=== PATIENT | female | born 1950 | race Caucasian/White ===

== ENCOUNTER 2016-11-06 09:33 | Inpatient (IN) | payer MEDICARE, BC ==
[2016-11-06] MEDS ORDERED: Ciprofloxacin 400MG IVPREMIX(* 400 MG/200 ML BAG IVPB ONE (10:09)
[2016-11-06] MEDS ORDERED: Acetaminophen TAB* 325 MG PO ONE (10:09)
[2016-11-06] MEDS ORDERED: metroNIDAZOLE IV 500 MG/100ML* 500 MG/100 ML BAG IVPB ONE (10:09)
[2016-11-06] MEDS ORDERED: Albuterol/Ipratropium NEB.SOL* Albuterol 2.5 MG/Ipratropium 0.5 MG 3 ML INH PRN (10:09)
[2016-11-06] MEDS: NS 0.9% 1000 ML*IV.FLUID IV ONE ×2 (10:25→15:58)
[2016-11-06 10:48] LABS: Hematocrit 27 % (35-47); Mean Corpuscular HGB Conc 33 g/dl (31-36); Mean Corpuscular Hemoglobin 29 pg (27-31); Mean Corpuscular Volume 87 fL (80-97); Mean Platelet Volume 8 um3 (7.4-10.4); Red Blood Count 3.08 10^6/ul (4.0-5.4); Red Cell Distribution Width 14 % (10.5-15); White Blood Count 12.4 10^3/ul (3.5-10.8)
--- NOTE | 2016-11-06 10:59 | RAD ---
HISTORY: Fever, shortness of breath, pneumonia COMPARISONS: May 27, 2016 VIEWS: 2: Frontal and lateral views of the chest. FINDINGS: CARDIOMEDIASTINAL SILHOUETTE: The cardiomediastinal silhouette is normal. AYAKA: The ayaka are normal. PLEURA: The costophrenic angles are sharp. No pleural abnormalities are noted. LUNG PARENCHYMA: The lungs are clear. ABDOMEN: The upper abdomen is clear. There is no subphrenic gas. BONES AND SOFT TISSUES: No bone or soft tissue abnormalities are noted. OTHER: None. IMPRESSION: NO ACTIVE CARDIOPULMONARY DISEASE.
[2016-11-06 11:00] LABS: ALT 17 U/L (7-52); AST 18 U/L (13-39); Albumin 1.5 g/dL (3.2-5.2); Alkaline Phosphatase 29 U/L (34-104); Blood Urea Nitrogen 13 mg/dL (6-24); C Reactive Protein 44.62 mg/L (< 5.00); Chloride 123 mmol/L (101-111); EGFR African American 458.5 (>60); EGFR Non-African American 356.5 (>60); Globulin 1.5 g/dL (2-4); Glucose 60 mg/dL (70-100)
[2016-11-06] MEDS ORDERED: Vancomycin(*) 1,000 MG VIAL IVPB SCH (11:00)
[2016-11-06] MEDS ORDERED: Vancomycin 1500 MG IV - x ONCE IVPB ONE ×2 (11:00)
[2016-11-06 11:07] LABS: Add Diff/Slide Review? Slide Review Added; Comments Flag Yes
[2016-11-06] MEDS ORDERED: Dextrose 50% Syringe 50 ML* 25 GM/50 ML SYRINGE IV PUSH ONE (11:14)
--- NOTE | 2016-11-06 11:20 | RAD ---
HISTORY: Slurred speech, bleed, fever COMPARISONS: None TECHNIQUE: Multiple contiguous axial CT scans were obtained of the head without intravenous contrast. FINDINGS: HEMORRHAGE/INFARCT: There is no hemorrhage or acute infarct. MASSES/SHIFT: There is no mass or shift. EXTRA-AXIAL SPACES: There are no extra-axial fluid collections. SULCI AND VENTRICLES: The sulci and ventricles are normal in size and position for the patient's stated age. CEREBRUM: There is hypoattenuation of the periventricular and subcortical white matter. BRAINSTEM: There are no focal parenchymal abnormalities. CEREBELLUM: There are no focal parenchymal abnormalities. VESSELS: The vessels are grossly normal. PARANASAL SINUSES: The paranasal sinuses are clear. ORBITS: The orbits are unremarkable. BONES AND SOFT TISSUE: No bone or soft tissue abnormalities are noted. OTHER: None IMPRESSION: NO ACUTE INTRACRANIAL PATHOLOGY. CHRONIC SMALL VESSEL ISCHEMIC CHANGES.
[2016-11-06 11:50] LABS: CO2 Carbon Dioxide 12 mmol/L (22-32); Calcium < 4.0 mg/dL (8.6-10.3); Potassium 1.7 mmol/L (3.5-5.0)
[2016-11-06 11:52] LABS: Urine Bacteria 1+ (Absent); Urine Bilirubin Negative (Negative); Urine Glucose Negative (Negative); Urine Nitrite Negative (Negative)
[2016-11-06 11:56] LABS: Anion Gap 5 mmol/L (2-11); Sodium 140 mmol/L (133-145)
[2016-11-06 12:20] LABS: Erythrocyte Sed Rate 10 mm/Hr (0-40)
[2016-11-06] MEDS ORDERED: KCL 20 MEQ/100 ML IVPREMIX* 20 MEQ/100 ML BAG IV ONE (12:40)
[2016-11-06] MEDS ORDERED: Calcium CHLORIDE 10% SYRINGE* 1 GM/10 ML IV ONE (12:44)
[2016-11-06] MEDS ORDERED: Iohexol 300* (CONTRAST) 10 ML SDV IV ONE (13:13)
--- NOTE | 2016-11-06 14:41 | RAD ---
CLINICAL HISTORY: Abdominal pain, fever, abscess, ulcerative colitis COMPARISON: November 05, 2015 TECHNIQUE: Multiple contiguous axial CT scans were obtained of the abdomen and pelvis after the administration of intravenous contrast. Coronal and sagittal multiplanar reformations are submitted for review. Oral contrast was administered. Delayed images were obtained through the abdomen and pelvis. FINDINGS: LUNG BASES: The lung bases are clear. LIVER: There has been interval development of multiple heterogeneously enhancing low-attenuation lesions of the liver throughout both lobes, measuring up to 3.8 cm in size. BILE DUCTS: There is no intrahepatic or extrahepatic biliary dilatation. GALLBLADDER: The gallbladder is not visualized. Surgical clips are noted in the gallbladder fossa. PANCREAS: The pancreas is normal, without mass or ductal dilatation. SPLEEN: Normal in size and appearance. UPPER GI TRACT: Evaluation of the gastrointestinal tract is limited by incomplete gastric distention. The upper GI tract is unremarkable. SMALL BOWEL AND MESENTERY: The small bowel is normal in contour, course, and caliber. There is no obstruction or dilatation. COLON: There is mucosal thickening of the rectum. The sigmoid colon is relatively featureless. There is diverticulosis of the descending colon at the descending sigmoid junction ADRENALS: Normal bilaterally. KIDNEYS: The kidneys are normal in shape, size, contour, and axis. There is no hydronephrosis or nephrolithiasis. BLADDER: The bladder is smooth in contour. PELVIC ORGANS: The uterus and adnexa are grossly normal for technique. AORTA: The aorta is normal. IVC: Unremarkable LYMPH NODES: There is no lymphadenopathy by size criteria. ABDOMINAL WALL: There is no evidence for abdominal wall hernia. BONES AND SOFT TISSUES: There are mild diffuse degenerative changes. OTHER: None IMPRESSION: 1. THERE HAS BEEN INTERVAL DEVELOPMENT OF HETEROGENEOUSLY ENHANCING LOW-ATTENUATION LESIONS OF THE LIVER. DIFFERENTIAL DOES INCLUDE METASTATIC DISEASE, THOUGH GIVEN THE HISTORY OF FEVER, HEPATIC ABSCESSES ARE ALSO WITHIN THE DIFFERENTIAL. 2. THERE IS MUCOSAL THICKENING OF THE RECTUM WITH RELATIVELY FEATURELESS MUCOSA OF THE SIGMOID COLON. THIS LIKELY REFLECTS THE HISTORY OF INFLAMMATORY BOWEL DISEASE. 3. DIVERTICULOSIS. PRELIMINARY FINDINGS WERE DISCUSSED WITH DR. DANG IN THE EMERGENCY DEPARTMENT AT APPROXIMATELY 2:37 PM ON NOVEMBER 06, 2016.
[2016-11-06] MEDS ORDERED: Albuterol HFA INHALER* 8 gm MDI INH PRN (15:44)
[2016-11-06] MEDS ORDERED: metroNIDAZOLE IV 500 MG/100ML* 500 MG/100 ML BAG IVPB SCH (16:00)
[2016-11-06] MEDS ORDERED: Acetaminophen TAB* 325 MG ONE (16:19)
[2016-11-06] MEDS: Acetaminophen TAB* 325 MG PO PRN (16:22)
[2016-11-06 16:27] LABS: BUN/Creatinine Ratio 34.4 (8-20); Calcium 8.1 mg/dL (8.6-10.3); EGFR African American 126.6 (>60); EGFR Non-African American 98.4 (>60); Potassium 3.2 mmol/L (3.5-5.0)
[2016-11-06] MEDS ORDERED: NS 0.9% 1000 ML* 500 ML IV ONE (16:44)
[2016-11-06] MEDS ORDERED: NS 0.9% 1000 ML* 1,000 ML IV SCH (17:00)
[2016-11-06] MEDS ORDERED: Potassium Chlor TAB* 20 MEQ TAB.ER PO ONE (17:20)
[2016-11-06 18:02] LABS: Magnesium 1.7 mg/dL (1.9-2.7)
--- NOTE | 2016-11-06 18:08 | ED ---
Gatito Sellers Angela, scribed for Brandon Olivares MD on 11/06/16 at 1005 . HPI Febrile Illness - HPI Summary HPI Summary: This pt is a 66 y/o female BIBA presenting to [facility] c/o high fever, chills and fatigue x2 days. Pt notes that she has difficulty speaking since today. She endorses weakness and numbness in LE. Pt notes having a headache two days ago, today resolved. Pt denies being bit by any ticks. Per , the pt has been in bed for 2 days, upon waking up today the pt was shaky and her speech was slurred. Per daughter, the pt had diarrhea this morning. Pt denies cough, urinary frequency, urinary urgency, dysuria, chest pain, SOB, vision loss. PMHx : ulcerative colitis (which was septic 2 years ago and is currently on remicade) , asthma. Pt denies diabetes, heart disease. - History of Current Complaint Chief Complaint: EDFever Time Seen by Provider: 11/06/16 09:53 Hx Obtained From: Patient Onset/Duration: Started Days Ago Timing: Constant Pain Intensity: 0 Aggravating Factors: Nothing Alleviating Factors: Nothing - Additional Pertinent History Primary Care Physician: [id number] - Allergy/Home Medications Allergies/Adverse Reactions: Allergies Allergy/AdvReac Type Severity Reaction Status Date / Time Penicillins Allergy Unknown Verified 10/08/16 10:02 Reaction Details seasonal allergies Allergy Unknown Uncoded 10/08/16 10:02 Reaction Details Home Medications: Home Medications Calcium Carbonate-Cholecalcife [Calcium 600+D3 600-400 mg-Unit] 3 tab PO DAILY 11/06/16 [History Confirmed 11/06/16] Calcium Carbonate-Vitamin D [Calcium 600/Vitamin D 600-200 mg-Unit] 1 tab PO DAILY 11/06/16 [History Confirmed 11/06/16] Calcium Polycarbophil TAB* [Fibercon TAB*] 625 mg PO BID 11/06/16 [History Confirmed 11/06/16] Losartan TAB* [Cozaar TAB*] 50 mg PO DAILY 11/06/16 [History Confirmed 11/06/16] Magnesium Oxide [Magnesium] 500 mg PO DAILY 11/06/16 [History Confirmed 11/06/16 ] Mesalamine (NF) [Apriso (NF)] 1.5 gm PO DAILY 11/06/16 [History Confirmed ] Multiple Vitamins W/ Minerals [Preservision Areds 2 + Mu] 1 cap PO BID 11/06/16 [History Confirmed 11/06/16] Multivitamins/Minerals TAB* [Theragran/minerals TAB*] 1 tab PO DAILY 11/06/16 [ History Confirmed 11/06/16] [place]-3 Fatty Acids [[place] 3] 1 cap PO DAILY 11/06/16 [History Confirmed ] amLODIPine TAB* [Norvasc 5 mg TAB*] 5 mg PO QPM 11/06/16 [History Confirmed ] celeCOXIB CAP* [CeleBREX CAP*] 100 mg PO BID 11/06/16 [History Confirmed ] traZODone TAB* [Desyrel TAB*] 50 mg PO BEDTIME PRN 11/06/16 [History Confirmed 11/06/16] PMH/Surg Hx/FS Hx/Imm Hx Endocrine/Hematology History: Denies: Hx Diabetes, Hx Systemic Lupus Erythematosus, Hx Thyroid Disease, Hx Anemia Cardiovascular History: Reports: Hx Hypertension Denies: Hx Congestive Heart Failure Respiratory History: Reports: Hx Asthma, Hx Seasonal Allergies Denies: Hx Chronic Bronchitis, Hx Chronic Obstructive Pulmonary Disease (COPD ), Hx Cystic Fibrosis, Hx Lung Cancer, Hx Pleural Effusion, Hx Pneumonia, Hx Pulmonary Edema, Hx Pulmonary Embolism, Hx Sleep Apnea GI History: Reports: Hx Gastroesophageal Reflux Disease, Other GI Disorders - Ulcerative colitis Denies: Hx Cirrhosis, Hx Crohn's Disease, Hx Diverticulosis, Hx Gall Bladder Disease, Hx Gastrointestinal Bleed, Hx Hiatal Hernia, Hx Irritable Bowel, Hx Jaundice, Hx Obstructive Bowel, Hx Ileostomy, Hx Pyloric Stenosis, Hx Ulcer History: Reports: Hx Dialysis - HX OF DIALYSIS 2014 FOR SEPSIS Denies: Hx Renal Disease Musculoskeletal History: Reports: Hx Arthritis Denies: Hx Rheumatoid Arthritis Sensory History: Reports: Hx Contacts or Glasses - NOT BROUGHT WITH PT., Hx Eye Injury - Rupture of lining on R eye, Other Sensory Impairments Denies: Hx Cataracts, Hx Glaucoma Opthamlomology History: Reports: Hx Contacts or Glasses - NOT BROUGHT WITH PT. , Hx Eye Injury - Rupture of lining on R eye, Other Sensory Impairments Denies: Hx Cataracts, Hx Glaucoma Neurological History: Denies: Hx Headaches - Cancer History Cancer Type, Location and Year: pre-melanoma mole L upper thigh - Surgical History Surgery Procedure, Year, and Place: 1983, tubal ligation 1984, cholecystectomy, carpal tunnel bilateral wrists, tonsilectomy, pt. can not remember which knee but repair (minicus) Hx Anesthesia Reactions: No Infectious Disease History: No Infectious Disease History: Denies: Hx Clostridium Difficile, Hx Hepatitis, Hx Human Immunodeficiency Virus (HIV), Hx of Known/Suspected MRSA, Hx Shingles - had vaccine, Hx Tuberculosis, Hx Known/Suspected VRE, Hx Known/Suspected VRSA, History Other Infectious Disease, Traveled Outside the [place] in Last 30 Days - Family History Known Family History: Positive: Other - denies fhx of UC - Social History Alcohol Use: None Substance Use Type: Reports: None Smoking Status (MU): Never Smoked Tobacco Have You Smoked in the Last Year: No Review of Systems Positive: Fever, Chills, Fatigue Eyes: Negative - vision loss ENT: Negative Negative: Chest Pain Negative: Shortness Of Breath Positive: Abdominal Pain - low abd pain, Diarrhea. Negative: Vomiting, Nausea Negative: dysuria, frequency, hematuria, urgency Negative: Myalgia Positive: Headache, Weakness, Numbness, Slurred Speech All Other Systems Reviewed And Are Negative: Yes Physical Exam - Summary Physical Exam Summary: The patient is well-nourished in moderate acute distress. Pt has trouble with speaking. The skin is warm and dry and skin color reflects adequate perfusion. HEENT: The head is normocephalic and atraumatic. The pupils are equal and reactive. Extra ocular movements are intact. The conjunctivae are clear and without drainage. Nares are patent and without drainage. Mouth reveals dry mucous membranes and the throat is without erythema and exudate. The external ears are intact. The ear canals are patent and without drainage. The tympanic membranes are intact. There is no facial droop. The pt is having receptive and expressive aphasia but it is intermittent. Neck is supple with full range of motion and non-tender. There is no nuchal rigidity. Respiratory: Chest is non-tender. There is some wheezing, but no retraction. Cardiovascular: Hear is regular rate and rhythm. There is no murmur or rub auscultated. There is no peripheral edema and pulses are symmetrical and equal. Abdomen: The abdomen is soft and tender in the right lower quadrant. There are normal bowel sounds heard in all four quadrants. Musculoskeletal: There is no back pain noted. Extremities are non-tender with full range of motion. There is good capillary refill. There is no peripheral edema or calf tenderness elicited. Neurological: Patient is alert and oriented to person, place and time. The patient has symmetrical motor strength in all four extremities. Cranial nerves II-XII are intact. Finger to Nose is normal. Heel to Pierce is normal. There is no pronator drift in the arms. There is no pronator drift in the legs. There is no motor weakness in the upper extremities or lower extremities. Psychiatric: The patient has an appropriate affect and does not exhibit any anxiety or depression. Triage Information Reviewed: Yes Vital Signs On Initial Exam: Initial Vitals Temp Pulse Resp BP Pulse Ox 102.5 F 88 20 138/78 98 11/06/16 09:45 11/06/16 09:45 11/06/16 09:45 11/06/16 09:45 11/06/16 09:45 Vital Signs Reviewed: Yes - [place] Coma Scale Coma Scale Total: 15 Diagnostics - Vital Signs Vital Signs Temp Pulse Resp BP Pulse Ox 11/06/16 09:49 102.5 F 88 20 138/78 98 11/06/16 09:45 102.5 F 88 20 138/78 98 - Laboratory Lab Results: Lab Results 11/06/16 11/06/16 11/06/16 Range/Units 10:25 10:25 10:25 WBC 12.4 H (3.5-10.8) 10^3/ul RBC 3.08 L (4.0-5.4) 10^6/ul Hgb 9.0 L (12.0-16.0) g/dl Hct 27 L (35-47) % MCV 87 (80-97) fL MCH 29 (27-31) pg MCHC 33 (31-36) g/dl RDW 14 (10.5-15) % Plt Count 99 L (150-450) 10^3/ul MPV 8 (7.4-10.4) um3 Neut % (Auto) 74.6 (38-83) % Lymph % (Auto) 5.1 L (25-47) % [place] % (Auto) 20.1 H (1-9) % Eos % (Auto) 0 (0-6) % Baso % (Auto) 0.2 (0-2) % Absolute Neuts (auto) 9.2 H (1.5-7.7) 10^3/ul Absolute Lymphs (auto) 0.6 L (1.0-4.8) 10^3/ul Absolute Monos (auto) 2.5 H (0-0.8) 10^3/ul Absolute Eos (auto) 0 (0-0.6) 10^3/ul Absolute Basos (auto) 0 (0-0.2) 10^3/ul Absolute Nucleated RBC 0 10^3/ul Nucleated RBC % 0 ESR 10 (0-40) mm/Hr INR (Anticoag Therapy) (0.89-1.11) APTT (26.0-36.3) seconds Sodium 140 (133-145) mmol/L Potassium 1.7 L* (3.5-5.0) mmol/L Chloride 123 H (101-111) mmol/L Carbon Dioxide 12 L* (22-32) mmol/L Anion Gap 5 (2-11) mmol/L BUN 13 (6-24) mg/dL Creatinine 0.20 L (0.51-0.95) mg/dL Est GFR ( Amer) 458.5 (>60) Est GFR (Non-Af Amer) 356.5 (>60) BUN/Creatinine Ratio 65.0 H (8-20) Glucose 60 L (70-100) mg/dL POC Glucose (mg/dL) (70-100) mg/dL Lactic Acid (0.5-2.0) mmol/L Calcium < 4.0 L* (8.6-10.3) mg/dL Magnesium (1.9-2.7) mg/dL Total Bilirubin 0.50 (0.2-1.0) mg/dL AST 18 (13-39) U/L ALT 17 (7-52) U/L Alkaline Phosphatase 29 L (34-104) U/L Troponin I 0.00 (<0.04) ng/mL C-Reactive Protein 44.62 H (< 5.00) mg/L B-Natriuretic Peptide 51 ( - 100) pg/mL Total Protein 3.0 L (6.4-8.9) g/dL Albumin 1.5 L (3.2-5.2) g/dL Globulin 1.5 L (2-4) g/dL Albumin/Globulin Ratio 1.0 (1-3) Urine Color Urine Appearance Urine pH (5-9) Ur Specific [place] (1.010-1.030) Urine Protein (Negative) Urine Ketones (Negative) Urine Blood (Negative) Urine Nitrate (Negative) Urine Bilirubin (Negative) Urine Urobilinogen (Negative) Ur Leukocyte Esterase (Negative) Urine WBC (Auto) (Absent) Urine RBC (Auto) (Absent) Ur Squamous Epith Cells (Absent) Urine Bacteria (Absent) Urine Glucose (Negative) Urine Ascorbic Acid (Negative) 11/06/16 11/06/16 11/06/16 Range/Units 10:25 10:25 11:19 WBC (3.5-10.8) 10^3/ul RBC (4.0-5.4) 10^6/ul Hgb (12.0-16.0) g/dl Hct (35-47) % MCV (80-97) fL MCH (27-31) pg MCHC (31-36) g/dl RDW (10.5-15) % Plt Count (150-450) 10^3/ul MPV (7.4-10.4) um3 Neut % (Auto) (38-83) % Lymph % (Auto) (25-47) % [place] % (Auto) (1-9) % Eos % (Auto) (0-6) % Baso % (Auto) (0-2) % Absolute Neuts (auto) (1.5-7.7) 10^3/ul Absolute Lymphs (auto) (1.0-4.8) 10^3/ul Absolute Monos (auto) (0-0.8) 10^3/ul Absolute Eos (auto) (0-0.6) 10^3/ul Absolute Basos (auto) (0-0.2) 10^3/ul Absolute Nucleated RBC 10^3/ul Nucleated RBC % ESR (0-40) mm/Hr INR (Anticoag Therapy) 1.63 H (0.89-1.11) APTT 33.4 (26.0-36.3) seconds Sodium (133-145) mmol/L Potassium (3.5-5.0) mmol/L Chloride (101-111) mmol/L Carbon Dioxide (22-32) mmol/L Anion Gap (2-11) mmol/L BUN (6-24) mg/dL Creatinine (0.51-0.95) mg/dL Est GFR ( Amer) (>60) Est GFR (Non-Af Amer) (>60) BUN/Creatinine Ratio (8-20) Glucose (70-100) mg/dL POC Glucose (mg/dL) (70-100) mg/dL Lactic Acid 0.9 (0.5-2.0) mmol/L Calcium (8.6-10.3) mg/dL Magnesium (1.9-2.7) mg/dL Total Bilirubin (0.2-1.0) mg/dL AST (13-39) U/L ALT (7-52) U/L Alkaline Phosphatase (34-104) U/L Troponin I (<0.04) ng/mL C-Reactive Protein (< 5.00) mg/L B-Natriuretic Peptide ( - 100) pg/mL Total Protein (6.4-8.9) g/dL Albumin (3.2-5.2) g/dL Globulin (2-4) g/dL Albumin/Globulin Ratio (1-3) Urine Color [place] Urine Appearance Cloudy Urine pH 5.0 (5-9) Ur Specific [place] 1.023 (1.010-1.030) Urine Protein 1+(30 mg/dl) H (Negative) Urine Ketones Trace H (Negative) Urine Blood Negative (Negative) Urine Nitrate Negative (Negative) Urine Bilirubin Negative (Negative) Urine Urobilinogen Negative (Negative) Ur Leukocyte Esterase Trace H (Negative) Urine WBC (Auto) Trace(0-5/hpf) (Absent) Urine RBC (Auto) 2+(6-10/hpf) H (Absent) Ur Squamous Epith Cells Present H (Absent) Urine Bacteria 1+ H (Absent) Urine Glucose Negative (Negative) Urine Ascorbic Acid * H (Negative) 11/06/16 11/06/16 11/06/16 Range/Units 13:34 14:38 14:38 WBC (3.5-10.8) 10^3/ul RBC (4.0-5.4) 10^6/ul Hgb (12.0-16.0) g/dl Hct (35-47) % MCV (80-97) fL MCH (27-31) pg MCHC (31-36) g/dl RDW (10.5-15) % Plt Count (150-450) 10^3/ul MPV (7.4-10.4) um3 Neut % (Auto) (38-83) % Lymph % (Auto) (25-47) % [place] % (Auto) (1-9) % Eos % (Auto) (0-6) % Baso % (Auto) (0-2) % Absolute Neuts (auto) (1.5-7.7) 10^3/ul Absolute Lymphs (auto) (1.0-4.8) 10^3/ul Absolute Monos (auto) (0-0.8) 10^3/ul Absolute Eos (auto) (0-0.6) 10^3/ul Absolute Basos (auto) (0-0.2) 10^3/ul Absolute Nucleated RBC 10^3/ul Nucleated RBC % ESR (0-40) mm/Hr INR (Anticoag Therapy) (0.89-1.11) APTT (26.0-36.3) seconds Sodium 131 L D (133-145) mmol/L Potassium 3.2 L D (3.5-5.0) mmol/L Chloride 97 L (101-111) mmol/L Carbon Dioxide 26 (22-32) mmol/L Anion Gap 8 (2-11) mmol/L BUN 21 (6-24) mg/dL Creatinine 0.61 (0.51-0.95) mg/dL Est GFR ( Amer) 126.6 (>60) Est GFR (Non-Af Amer) 98.4 (>60) BUN/Creatinine Ratio 34.4 H (8-20) Glucose 83 (70-100) mg/dL POC Glucose (mg/dL) 124 H (70-100) mg/dL Lactic Acid 2.7 H* (0.5-2.0) mmol/L Calcium 8.1 L (8.6-10.3) mg/dL Magnesium 1.7 L (1.9-2.7) mg/dL Total Bilirubin (0.2-1.0) mg/dL AST (13-39) U/L ALT (7-52) U/L Alkaline Phosphatase (34-104) U/L Troponin I (<0.04) ng/mL C-Reactive Protein (< 5.00) mg/L B-Natriuretic Peptide ( - 100) pg/mL Total Protein (6.4-8.9) g/dL Albumin (3.2-5.2) g/dL Globulin (2-4) g/dL Albumin/Globulin Ratio (1-3) Urine Color Urine Appearance Urine pH (5-9) Ur Specific [place] (1.010-1.030) Urine Protein (Negative) Urine Ketones (Negative) Urine Blood (Negative) Urine Nitrate (Negative) Urine Bilirubin (Negative) Urine Urobilinogen (Negative) Ur Leukocyte Esterase (Negative) Urine WBC (Auto) (Absent) Urine RBC (Auto) (Absent) Ur Squamous Epith Cells (Absent) Urine Bacteria (Absent) Urine Glucose (Negative) Urine Ascorbic Acid (Negative) Result Diagrams: 11/06/16 10:25 11/06/16 14:38 Lab Statement: Any lab studies that have been ordered have been reviewed, and results considered in the medical decision making process. - Radiology Chest XR Xray Interpretation: No Acute Changes - IMPRESSION: No active cardiopulmonary disease. ED physician has reviewed this radiology report and agrees. Radiology Interpretation Completed By: Radiologist - CT CT Brain CT Interpretation: No Acute Changes - IMPRESSION: No acute intracranial pathology. Chronic small vessel ischmeic changes. ED physician has reviewed this radiology report and agrees. CT Interpretation Completed By: Radiologist CT Abd/Pel CT Interpretation: Positive (See Comments) - IMPRESSION: 1. There has been interval development of the heterogeneous enhacing low-attenuation lesion of the liver differential does include metastatic disease, though given the history of fever, hepatic abscesses are also within the differential. 2. There is mucosal thickening of the rectum with relatively featureless mucosa of the sigmoid colon. This likely reflects the history of the inflammatory bowel disease. 3. Diverticulosis. ED physician has reviewed this radiology report and agrees. CT Interpretation Completed By: Radiologist - EKG 0948 Cardiac Rate: NL EKG Rhythm: Sinus Rhythm ST Segment: Non-Specific EKG Interpretation: No STEMI. Normal [place] Re-Evaluation - Re-Evaluation First Eval Re-Evaluation Time: 12:49 Comment: I reviewed the CT and XR results with the pt. Course/Dx - Course Course Of Treatment: This pt is a 66 y/o female BIBA presenting to [facility] c/o high fever, chills and fatigue x2 days. Pt notes that she has difficulty speaking since today. Labs are notable for WBC of 12.4, Hgb of 9, Hct of 27, INR of 1.63, Potassium of 1.7, calcium for less than 4.0, CRP of 44. UA shows 1 + protein, trace of ketones, trace of leukocyte esterase, present squamous epithelial cells, 1+ bacteria. Pt will be admitted to [facility] in stable condition. - Febrile Illness Differential Diagnoses: Abscess, Bacteremia, Pneumonia, Pyelonephritis, Sepsis, Other: - hypokalemia, hypoglycemia, hypocalcemia - Diagnoses Provider Diagnoses: Sepsis, Hypocalcemia, Hypokalemia, Hypoglycemia - Provider Notifications Discussed Care Of Patient With: Nicolas Shelby Time Discussed With Above Provider: 13:43 Instructed by Provider To: Other - I discussed the pt's case with Dr. Shelby. He asked me to call the hospitalist to admit the pt. 14:17 - I spoke with Dr. Rosales, who will admit the pt. - Critical Care Time Critical Care Time: 30-74 min - 45 minutes Discharge - Discharge Plan Condition: Stable Disposition: ADMITTED TO [facility] NIH Scale - NIH Scale Level of Consciousness: Alert/Keenly Responsive Ask Patient the Month and His/Her Age: Both Correct Ask Pt to Open/Close Eyes and Baggagemaster/Release Non-Paretic Hand: Both Correctly Best Gaze (Only Horizontal Eye Movement): Normal Visual Field Testing: No Visual Loss Facial Paresis-Pt to Smile & Close Eyes or Grimace Symmetry: Normal/Symmetrical Motor Function - Right Arm: No Drift-Holds 10 Seconds Motor Function - Left Arm: No Drift-Holds 10 Seconds Motor Function - Right Leg: No Drift-Holds 10 Seconds Motor Function - Left Leg: No Drift-Holds 10 Seconds Limb Ataxia-Must be out of Proportion to Weakness Present: Absent Sensory (Use Pinprick to Test Arms/Legs/Trunk/Face): Normal Best Language (Describe Picture, Name Items): Some Loss Dysarthria (Read Several Words): Slurs Some Words Extinction and Inattention: No Abnormality Total Score: 2 The documentation as recorded by the Gatito english Angela accurately reflects the service I personally performed and the decisions made by me, Brandon Olivares MD.
[2016-11-06] MEDS ORDERED: Magnesium Sulfate 2 GM IV* 2 GM/50 ML BAG IVPB ONE (18:37)
--- NOTE | 2016-11-06 19:17 | RAD ---
Indication: Hepatic lesion. Question hepatic abscess. Real-time sonography of the left lobe of liver was performed. The liver is normal in size. There is a hypoechoic lesion in the left lobe measuring 13 x 13 x 17 mm which appears to be solid. The other lesions identified on CT could not be identified due to overlying gas and limited positioning. The patient is status post cholecystectomy. The common duct measures 5 mm. The right kidney measures 11.7 x 5.5 x 4.9 cm with no hydronephrosis. Visualization of the pancreas is limited due to bowel gas. IMPRESSION: Solid lesion in the left lobe of liver measuring 13 x 13 x 17 mm. Other lesions identified on CT are not well demonstrated on this ultrasound. The remainder of the abdomen is limited.
[2016-11-06] MEDS: Cefepime(*) 2 GM in NS 0.9% 50 ML* 50 ML IVPB SCH (19:34)
[2016-11-06] MEDS: Mometasone 220 MCG MDI INH SCH (20:11)
[2016-11-06 20:28] LABS: Comments Flag Yes; Hematocrit 40 % (35-47); Hemoglobin 13.4 g/dl (12.0-16.0); Mean Corpuscular HGB Conc 34 g/dl (31-36); Mean Corpuscular Hemoglobin 29 pg (27-31); Mean Corpuscular Volume 86 fL (80-97); Mean Platelet Volume 8 um3 (7.4-10.4); Red Blood Count 4.61 10^6/ul (4.0-5.4); Red Cell Distribution Width 14 % (10.5-15); White Blood Count 17.5 10^3/ul (3.5-10.8)
[2016-11-06] MEDS: metroNIDAZOLE IV 500 MG/100ML* 500 MG/100 ML BAG IVPB SCH (21:51)
--- NOTE | 2016-11-06 22:30 | HP ---
CC: Nicolas Shelby MD * HISTORY AND PHYSICAL: DATE OF ADMISSION: 11/06/16 ADMITTING PROVIDER: Wesley Armenta MD PRIMARY CARE PHYSICIAN: Nicolas Shelby MD CHIEF COMPLAINT: Fever, headache, malaise, right flank pain. HISTORY OF PRESENT ILLNESS: The patient is a 66-year-old female with past medical history of ulcerative colitis (on Remicade); hypertension; diverticulitis; asthma, who presents with 4 days of flank pain near right kidney , generalized malaise, 3 days of headache, occasionally severe, 1 day of shaking rigors, and a few days of chills. The patient has been largely bedbound for the last 3 days and family finally convinced her to come in to the hospital. She also had some slurred speech today and her appetite has been poor for the last 2 days. Of note, she has been on Remicade every 8 weeks since December 2015 with the last injection approximately 3 weeks ago. Of note, she also had a bloody bowel movement around that time, which she attributed to hemorrhoids. She did have episode of diarrhea today. Family did not check temperature at home, but she has been having chills and shaking rigors, unable to walk to the car with the aid of her , so EMS was called, and the patient was noted to have a fever of 103. In the ED, initial temperature was 102.5, heart rate in the 90s, blood pressure 138/78. Initial lab work was significant for a white count of 12.4, platelets 99, hemoglobin of 9.0, hematocrit 27, INR of 1.63, lactic acid of 0.9 with subsequent increase to 2.7 and widely abnormal BMP (suspected analyzer malfuction in discussion with with lab) with initial potassium 1.7, bicarb 12, calcium below detectable limits, below 4.0. Repeated BMP later returned with K 3.2, Calcium 8.1, bicarb 26, Mag 1.7. CRP is 44.6, BNP 51. Urinalysis demonstrates trace ketones, 2+ rbc's, 1+ bacteria with squamous epithelial cells present. The patient was noted to have a blood glucose of 60. CT of the head demonstrated no acute intracranial pathology with chronic small vessel ischemic changes. Chest PA and lateral 2 views demonstrated no active cardiopulmonary disease. CT of the abdomen and pelvis with contrast was significant for interval development of heterogenous enhancing low attenuation lesions of liver differential of which included metastatic disease vs hepatic abscesses. There was mucosal thickening of the rectum with relatively featureless mucosa of the sigmoid colon, likely reflecting history of inflammatory bowel disease. Evidence of diverticulosis. The patient was ordered 2 L normal saline bolus and Flagyl, ciprofloxacin, and vancomycin. Blood culture and urine culture were drawn. The patient initially defervesced, but temperature again spiked to 101.6 degrees Fahrenheit. PAST MEDICAL HISTORY: Significant for ulcerative colitis, hypertension, GERD, asthma, anxiety, severe sepsis infection 2 years ago complicated by acute renal failure requiring a period of hemodialysis with subsequent recovery of renal function. PAST SURGICAL HISTORY: Includes cholecystectomy, bilateral carpal tunnel release, . MEDICATIONS: Include: 1. Remicade approximately every 8 weeks. 2. Flovent 2 puffs 2 times daily. 3. Albuterol 2 puffs 4 times daily. 4. Calcium with vitamin D and C 1500 mg daily. 5. Multivitamin. 6. Magnesium 500 mg daily. 7. AREDS2 b.i.d. 8. Losartan 50 mg daily. 9. Amlodipine 5 mg q. p.m. 10. Citalopram 20 mg q.a.m. 11. Singulair 10 mg daily. 12. Trazodone 50 mg p.r.n. 13. Omeprazole 20 mg daily. 14. [place]-3 1200 mg daily. 15. FiberCon 2 times daily. 16. Mesalamine (Apriso) 0.375 mg 4 capsules daily. ALLERGIES: PENICILLIN allergy reaction as a child. FAMILY HISTORY: Mother with hypertension, heart disease, small cell lung cancer. Father with hypertension and heart disease with pacemaker placement, daughter with hypertension, brother alive and well, brother who of hepatitis C, renal failure, and liver transplant. SOCIAL HISTORY: Ex-smoker, occasional alcohol use, approximately 1 glass of wine a week. 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 with 2 children, living with her Dedrick, who is her healthcare proxy. They all accompany her in the room today. REVIEW OF SYSTEMS: A 14-point review of systems was completed with the patient. All pertinent positives and negatives as listed in the history of present illness, otherwise negative. PHYSICAL EXAMINATION GENERAL: Pleasant woman lying in bed, in moderate distress with occasional rigors. VITAL SIGNS: Blood pressure 119/72; heart rate 89; temperature 101.6; respiratory rate 20, satting 95% on room air. HEENT: Normocephalic, atraumatic. Pupils are equal and reactive to light. Moist mucous membranes. NECK: Supple. No lymphadenopathy or palpable thyroid appreciated. No JVD. PULMONARY: Chest clear to auscultation without evidence of rales, rhonchi or wheezing. CARDIOVASCULAR: Regular S1 and S2 without murmurs, rubs, or gallops. ABDOMEN: Soft, slightly obese, nontender, nondistended. No hepatosplenomegaly. Flank, no CVA tenderness. EXTREMITIES: No cyanosis or clubbing. Intact dorsalis pedis and tibialis posterior pulses. NEURO: Alert and oriented x3 with occasional rigors, moving all extremities. Strength is 5/5 in all extremities. Sensation intact. SKIN: No lesions, no rashes. DIAGNOSTIC STUDIES/LAB DATA: Labs as outlined in H and P. EKG shows normal sinus rhythm with prolonged QRS 104 milliseconds, normal axis, [address] depressions in V5, V6. Normal R-wave progression. Imaging as described in H and P. ASSESSMENT AND PLAN: 1. Sepsis. Likely secondary to intra-abdominal infection with possible complication with hepatic abscesses in the setting of Remicade administration. She is status post empiric antibiotics with Cipro, vancomycin, and Flagyl in the ED. Infectious Disease physician Doug. Camp, has been consulted who recommended stopping the vancomycin, continuing the Flagyl and changing ciprofloxacin to cefepime. She has received 2 L normal saline bolus with 1 L still pending given her continued lactic acidosis. markedly abnormal BMP, has been repeated, but there are reportedly issues with the analyzer down in the lab and will have to be followed up closely. I suspect many of these abnormal values are fictitious (they proved to be so, but Mag and K repleted for low values). She will be admitted to telemetry floor. Her GI doctor, Dr. Mehta' s office, has been contacted and they have recommended calling the GI lab tomorrow morning when he is in the hospital doing procedures if consult is requested. We will obviously hold the patient's Remicade infusions and antihypertensive medications in the setting of sepsis and infection. We will follow up her urine cultures and blood cultures to help tailor our antibiotic therapy. Dr. Camp has also recommended calling Interventional Radiology to determine if the 3.8 cm hepatic mass could be drained. Dr. Mcintyre was contacted who requested STAT Liver Ultrasound (ordered, pending) 2. Ulcerative colitis. We will continue to hold the Remicade and not restart mesalamine at this time and follow with Dr. Mehta's recommendations tomorrow. 3. chronic obstructive pulmonary disease, asthma. Continue her home Singulair and albuterol inhaler p.r.n. 4. Hypertension. Hold amlodipine and losartan in the setting of sepsis until hemodynamic stability has been confirmed. 5. Fluids, electrolytes, nutrition. Regular diet until midnight, n.p.o. after in case there is a possibility to drain the hepatic abscess with Interventional Radiology in a.m. 6. DVT prophylaxis. Heparin subcutaneous 5000 units t.i.d., SCDs. 7. Code status was discussed with patient, , and 2 daughters at bedside and wishes to be full code, although express desire to not undergo futile life preserving interventions if initial therapies do not prove successful. [id number] #: [id number] HARMEET
[2016-11-07] MEDS ORDERED: Temazepam CAP* 15 MG PO PRN (01:16)
[2016-11-07] MEDS: Acetaminophen TAB* 325 MG PO PRN ×3 (01:38→19:40)
[2016-11-07] MEDS: metroNIDAZOLE IV 500 MG/100ML* 500 MG/100 ML BAG IVPB SCH ×2 (04:39→18:19)
[2016-11-07] MEDS: Cefepime(*) 2 GM in NS 0.9% 50 ML* 50 ML IVPB SCH ×2 (05:36→17:54)
[2016-11-07 06:27] LABS: Hematocrit 39 % (35-47); Hemoglobin 13.1 g/dl (12.0-16.0); Mean Corpuscular HGB Conc 34 g/dl (31-36); Mean Corpuscular Hemoglobin 29 pg (27-31); Mean Corpuscular Volume 87 fL (80-97); Mean Platelet Volume 9 um3 (7.4-10.4); Red Blood Count 4.45 10^6/ul (4.0-5.4); Red Cell Distribution Width 14 % (10.5-15); White Blood Count 15.7 10^3/ul (3.5-10.8)
[2016-11-07 06:31] LABS: Comments Flag Yes
[2016-11-07 06:46] LABS: Albumin 3.1 g/dL (3.2-5.2); BUN/Creatinine Ratio 20.3 (8-20); Calcium 8.5 mg/dL (8.6-10.3); EGFR African American 131.6 (>60); EGFR Non-African American 102.3 (>60); Globulin 2.7 g/dL (2-4); Magnesium 2.1 mg/dL (1.9-2.7); Potassium 3.5 mmol/L (3.5-5.0); Total Protein 5.8 g/dL (6.4-8.9)
--- NOTE | 2016-11-07 08:14 | PN ---
Subjective - Subjective Reason for Note: Progress Note History: Janett Gonzales presents with a fever and incipient sepsis without organ failure. I obtained her presentation from the patient and also from Dr. Wesley Armenta's admitting history and physical. Wednesday 11/01 - some lower abdo cramps, fatigue. She has been under a lot of stress Friday she continued to feel fatigued and generally unwell Friday She couldn't attend spiritism. She had some shivers - slept all day Fri - no abdominal pain or change in bowel movement. She developed a headache /Fri stayed in bed. Became disoriented and too weak to get into the car - taken to ED by ambulance. She has a history of ulcerative colitis (UC) - she thinks this is well controlled at present and has had no change in her bowel movements/blood in stool. She has had a prior episode of severe sepsis with organ failure when her UC was not under control. Her headache has resolved - it was not associated with photophobia or neck stiffness She had a dental cleaning 1 week ago - no prior cardiac history. She has a prior echocardiogram 12/31/14 Transthoracic echocardiogram Conclusions Global left ventricular wall motion and contractility are within normal limits. There is normal left ventricular systolic function. The estimated ejection fraction is 55-60%. There is trace to mild aortic regurgitation. The aortic valve leaflets are mildly thickened. There is trace to mild mitral regurgitation. There is trace tricuspid regurgitation. Unable to estimate the right ventricular systolic pressure. There is no significant pericardial effusion. There are no significant changes when compared to the previous study done on 12/11/14 Active Problems: Active Problems Fever and chills (Acute) R50.9 Sepsis (Acute) Asthma, currently inactive (Chronic) J45.909 Essential (primary) hypertension (Chronic) I10 GERD without esophagitis (Chronic) K21.9 HLA B27 (HLA B27 positive) (Chronic) Z15.89 Obesity (BMI 30.0-34.9) (Chronic) E66.9 Patient is full code (Chronic 12/30/14) Z78.9 Pre-diabetes (Chronic) R73.03 Ulcerative colitis, acute (Chronic) K51.90 Current Medications: Current Medications Acetaminophen (Tylenol Tab*) 650 mg PO Q6H PRN PRN Reason: FEVER Last Admin: 11/07/16 01:38 Dose: 650 mg Albuterol (Ventolin Hfa Inhaler*) 2 puff INH QID PRN PRN Reason: SOB/WHEEZING Citalopram Hydrobromide (Celexa Tab*) 20 mg PO QAM [facility] Heparin Sodium (Porcine) (Heparin Vial(*)) 5,000 units SUBCUT Q8HR [facility] Cefepime HCl 2 gm/ Sodium (Chloride) 50 mls @ 100 mls/hr IVPB Q12H [facility] Last Admin: 11/07/16 05:36 Dose: 100 mls/hr Metronidazole/Sodium Chloride (Flagyl 500 Mg Ivpb*) 500 mg in 100 mls @ 100 mls /hr IVPB Q8H [facility] Last Admin: 11/07/16 04:39 Dose: 100 mls/hr Sodium Chloride (Ns 0.9% 1000 Ml*) 1,000 mls @ 150 mls/hr IV PER RATE [facility] Stop: 11/07/16 10:00 Last Admin: 11/06/16 21:51 Dose: 150 mls/hr Mometasone Furoate (Asmanex 220 Mcg Mdi *) 2 puff INH QPM [facility] Last Admin: 11/06/16 20:11 Dose: Not Given Montelukast Sodium (Singulair Tab*) 10 mg PO DAILY [facility] Multivitamins/Minerals (Theragran/Minerals Tab*) 1 tab PO DAILY [facility] Temazepam (Restoril Cap*) 15 mg PO BEDTIME PRN PRN Reason: INSOMNIA Trazodone HCl (Desyrel Tab*) 50 mg PO BEDTIME PRN PRN Reason: SLEEP Home Medications: Home Medications Medication Instructions Recorded Confirmed Type Citalopram TAB* [Celexa TAB*] 20 mg PO QAM 07/02/13 11/06/16 History Omeprazole CAP* [Prilosec CAP* 20 20 mg PO DAILY 07/02/13 11/06/16 History MG] Montelukast Sodium TAB* [Singulair 10 mg PO DAILY 12/09/14 11/06/16 History 10 MG TAB*] Albuterol HFA INHALER* [Ventolin 2 puff INH QID PRN 12/30/14 11/06/16 History HFA Inhaler*] Fluticasone HFA 110 mcg(NF) 2 puff INH BID 11/28/15 11/06/16 History [Flovent HFA 110 mcg(NF)] Calcium Carbonate-Cholecalcife 3 tab PO DAILY 11/06/16 11/06/16 History [Calcium 600+D3 600-400 mg-Unit] Calcium Carbonate-Vitamin D 1 tab PO DAILY 11/06/16 11/06/16 History [Calcium 600/Vitamin D 600-200 mg-Unit] Calcium Polycarbophil TAB* 625 mg PO BID 11/06/16 11/06/16 History [Fibercon TAB*] Losartan TAB* [Cozaar TAB*] 50 mg PO DAILY 11/06/16 11/06/16 History Magnesium Oxide [Magnesium] 500 mg PO DAILY 11/06/16 11/06/16 History Mesalamine (NF) [Apriso (NF)] 1.5 gm PO DAILY 11/06/16 11/06/16 History Multiple Vitamins W/ Minerals 1 cap PO BID 11/06/16 11/06/16 History [Preservision Areds 2 + Mu] Multivitamins/Minerals TAB* 1 tab PO DAILY 11/06/16 11/06/16 History [Theragran/minerals TAB*] Selma-3 Fatty Acids [Selma 3] 1 cap PO DAILY 11/06/16 11/06/16 History amLODIPine TAB* [Norvasc 5 mg TAB*] 5 mg PO QPM 11/06/16 11/06/16 History celeCOXIB CAP* [CeleBREX CAP*] 100 mg PO BID 11/06/16 11/06/16 History traZODone TAB* [Desyrel TAB*] 50 mg PO BEDTIME PRN 11/06/16 11/06/16 History Allergies: Allergies Allergy/AdvReac Type Severity Reaction Status Date / Time Penicillins Allergy Unknown Verified 10/08/16 10:02 Reaction Details seasonal allergies Allergy Unknown Uncoded 10/08/16 10:02 Reaction Details Objective - Vital Signs Vital Signs: Vital Signs 11/06/16 11/06/16 11/06/16 16:02 16:57 18:00 Temperature 101.6 F 100.8 F Pulse Rate 112 112 Respiratory 18 Rate Blood Pressure 117/47 117/47 (mmHg) O2 Sat by Pulse 95 95 Oximetry 11/06/16 11/07/16 11/07/16 20:00 00:06 04:24 Temperature 100.4 F Pulse Rate 113 102 Respiratory 19 16 16 Rate Blood Pressure 126/63 101/52 (mmHg) O2 Sat by Pulse 95 95 89 Oximetry 11/07/16 04:26 Temperature 98.2 F Pulse Rate 109 Respiratory 16 Rate Blood Pressure 101/42 (mmHg) O2 Sat by Pulse 96 Oximetry - Intake and Output Intake and Output: Intake & Output 11/04/16 11/05/16 11/06/16 11/07/16 11:59 11:59 11:59 11:59 Intake Total 1639 Output Total 0 Balance 1639 Weight 230 lb 6.4 oz Intake: IV Fluids 1402 NS (0.9%) 1191 IVPB 237 NS (0.9%) 167 Oral 0 Output: Urine 0 Other: Estimated Void Medium # Bowel Movements 3 Estimated Stool Amount Small # Voids 3 ADLs: Meal Record Start: 11/06/16 16: 57 Freq: DAILY@0900,1400,1800 Status: Active Created 11/06/16 16:57 System (Rec: 11/06/16 16:57 System [id number]) Intake and Output Start: 11/06/16 09: 48 Freq: Status: Active Created 11/06/16 09:48 System (Rec: 11/06/16 09:48 System [id number]) Intake and Output Start: 11/06/16 16: 57 Freq: DAILY@0600,1400,2200 Status: Active Created 11/06/16 16:57 System (Rec: 11/06/16 16:57 System [id number]) Document 11/06/16 22:00 [id number] (Rec: 11/06/16 22:08 [id number]) Document 11/07/16 06:00 [id number] (Rec: 11/07/16 06:44 [id number]) - Physical Exam General Physical Exam Comment: She has no rashes, no splinger hemorrhages or Osler nodes. No nuchal rigidity, headache or photophobia. She is hemodynamically stable. She is alert, oriented, normal speech and able to discuss her situation with insight. General: No Cyanosis, No Anemia, No Jaundice, No Clubbing Lungs and Chest: Yes: Chest Expansion Full, Chest Expansion Symetrica, Percussion Note Resonant, Vessicular Breath Sounds. No: Crackles, Wheezes Heart Rate and Rhythm: Regular Additional Cardiovascular: Yes: Normal Heart Sounds. No: Heart Murmur, Pedal Edema Abdominal Exam: Yes: Soft, Abdominal Tenderness - mild generalized tenderness on deep palpation, Bowel Sounds Present. No: Distention, Abdominal Mass, Hepatomegaly, Splenomegaly, Guarding, Rebound Tenderness, Kidneys Palpable - no renal angle tenderness - Extremities Cranial Nerves II-XII Intact: Yes Limbs: Normal Power, Normal Tone - Neuro Orientation: A/O x3 Psychiatric: Normal Speech: Normal Results - Results Lab Results: Laboratory Results - last 24 hr 11/06/16 11/06/16 11/06/16 15:24 20:21 20:21 WBC 17.5 H RBC 4.61 Hgb 13.4 Hct 40 MCV 86 MCH 29 MCHC 34 RDW 14 Plt Count 122 L MPV 8 Neut % (Auto) 77.0 Lymph % (Auto) 6.0 L [place] % (Auto) 16.6 H Eos % (Auto) 0 Baso % (Auto) 0.4 Absolute Neuts (auto) 13.5 H Absolute Lymphs (auto) 1.0 Absolute Monos (auto) 2.9 H Absolute Eos (auto) 0 Absolute Basos (auto) 0.1 Absolute Nucleated RBC 0 Nucleated RBC % 0 Sodium Potassium Chloride Carbon Dioxide Anion Gap BUN Creatinine Est GFR ( Amer) Est GFR (Non-Af Amer) BUN/Creatinine Ratio Glucose POC Glucose (mg/dL) 81 Lactic Acid 1.1 Calcium Magnesium Total Bilirubin AST ALT Alkaline Phosphatase Total Protein Albumin Globulin Albumin/Globulin Ratio 11/07/16 11/07/16 11/07/16 01:12 06:08 06:08 WBC 15.7 H RBC 4.45 Hgb 13.1 Hct 39 MCV 87 MCH 29 MCHC 34 RDW 14 Plt Count 120 L MPV 9 Neut % (Auto) 77.0 Lymph % (Auto) 6.5 L [place] % (Auto) 16.3 H Eos % (Auto) 0 Baso % (Auto) 0.2 Absolute Neuts (auto) 12.1 H Absolute Lymphs (auto) 1.0 Absolute Monos (auto) 2.5 H Absolute Eos (auto) 0 Absolute Basos (auto) 0 Absolute Nucleated RBC 0.01 Nucleated RBC % 0 Sodium 137 Potassium 3.5 Chloride 108 Carbon Dioxide 25 Anion Gap 4 BUN 12 Creatinine 0.59 Est GFR ( Amer) 131.6 Est GFR (Non-Af Amer) 102.3 BUN/Creatinine Ratio 20.3 H Glucose 112 H POC Glucose (mg/dL) 138 H Lactic Acid Calcium 8.5 L Magnesium 2.1 Total Bilirubin 1.00 AST 46 H ALT 48 Alkaline Phosphatase 53 Total Protein 5.8 L Albumin 3.1 L Globulin 2.7 Albumin/Globulin Ratio 1.1 Radiology Results: Patient Name: JANETT GONZALES Medical Record#: [id number] Ordering Physician: Brandon Dang DO Acct.#: [id number] : 1950 Age: 66 Sex: F Location: EMERGENCY DEPARTMENT Exam Date: 11/06/16 1137 ADM Status: REG ER Order Information: CT ABD/PEL W Accession Number: [id number] CPT: 88702 CLINICAL HISTORY: Abdominal pain, fever, abscess, ulcerative colitis COMPARISON: November 05, 2015 TECHNIQUE: Multiple contiguous axial CT scans were obtained of the abdomen and pelvis after the administration of intravenous contrast. Coronal and sagittal multiplanar reformations are submitted for review. Oral contrast was administered. Delayed images were obtained through the abdomen and pelvis. FINDINGS: LUNG BASES: The lung bases are clear. LIVER: There has been interval development of multiple heterogeneously enhancing low-attenuation lesions of the liver throughout both lobes, measuring up to 3.8 cm in size. BILE DUCTS: There is no intrahepatic or extrahepatic biliary dilatation. GALLBLADDER: The gallbladder is not visualized. Surgical clips are noted in the gallbladder fossa. PANCREAS: The pancreas is normal, without mass or ductal dilatation. SPLEEN: Normal in size and appearance. UPPER GI TRACT: Evaluation of the gastrointestinal tract is limited by incomplete gastric distention. The upper GI tract is unremarkable. SMALL BOWEL AND MESENTERY: The small bowel is normal in contour, course, and caliber. There is no obstruction or dilatation. COLON: There is mucosal thickening of the rectum. The sigmoid colon is relatively featureless. There is diverticulosis of the descending colon at the descending sigmoid junction ADRENALS: Normal bilaterally. KIDNEYS: The kidneys are normal in shape, size, contour, and axis. There is no hydronephrosis or nephrolithiasis. BLADDER: The bladder is smooth in contour. PELVIC ORGANS: The uterus and adnexa are grossly normal for technique. AORTA: The aorta is normal. IVC: Unremarkable LYMPH NODES: There is no lymphadenopathy by size criteria. ABDOMINAL WALL: There is no evidence for abdominal wall hernia. BONES AND SOFT TISSUES: There are mild diffuse degenerative changes. OTHER: None IMPRESSION: 1. THERE HAS BEEN INTERVAL DEVELOPMENT OF HETEROGENEOUSLY ENHANCING LOW- ATTENUATION LESIONS OF THE LIVER. DIFFERENTIAL DOES INCLUDE METASTATIC DISEASE, THOUGH GIVEN THE HISTORY OF FEVER, HEPATIC ABSCESSES ARE ALSO WITHIN THE DIFFERENTIAL. 2. THERE IS MUCOSAL THICKENING OF THE RECTUM WITH RELATIVELY FEATURELESS MUCOSA OF THE SIGMOID COLON. THIS LIKELY REFLECTS THE HISTORY OF INFLAMMATORY BOWEL DISEASE. 1 of 2 [facility] Patient Name:JANETT GONZALES MR:[id number] : 1950 3. DIVERTICULOSIS. PRELIMINARY FINDINGS WERE DISCUSSED WITH DR. DANG IN THE EMERGENCY DEPARTMENT AT APPROXIMATELY 2:37 PM ON NOVEMBER 06, 2016. <Electronically signed by Fred Lin MD in OV> 11/06/16 1437 Dictated By: Fred Lin MD Dictated Date/Time: 11/06/16 1437 Transcribed Date/Time: 11/06/16 143 Copy to: CC:Nicolas Shelby MD; Brandon Dang DO Imaging - [facility] [place] [facility] [address] [address] ph [phone]) ph ([phone]) ph ([phone]) Patient Name: JANETT GONZALES Medical Record#: [id number] Ordering Physician: Wesley Armenta MD Acct.#: [id number] : 1950 Age: 66 Sex: F Location: [address] [place] [address] MEDICAL/TELEMETRY Exam Date: 11/06/161708 ADM Status: ADM IN Order Information: US LIVER Accession Number: [id number] CPT: 93979 Indication: Hepatic lesion. Question hepatic abscess. Real-time sonography of the left lobe of liver was performed. The liver is normal in size. There is a hypoechoic lesion in the left lobe measuring 13 x 13 x 17 mm which appears to be solid. The other lesions identified on CT could not be identified due to overlying gas and limited positioning. The patient is status post cholecystectomy. The common duct measures 5 mm. The right kidney measures 11.7 x 5.5 x 4.9 cm with no hydronephrosis. Visualization of the pancreas is limited due to bowel gas. IMPRESSION: Solid lesion in the left lobe of liver measuring 13 x 13 x 17 mm. Other lesions identified on CT are not well demonstrated on this ultrasound. The remainder of the abdomen is limited. <Electronically signed by Chelsy Sosa MD in OV> 11/06/161913 Dictated By: Chelsy Sosa MD Dictated Date/Time: 11/06/161913 Transcribed Date/Time: 11/06/161910 Copy to: CC:Nicolas Shelby MD; Wesley Armenta MD Imaging - [facility] [place] [facility] [place] [facility] [address] [place] [address] ph [phone]) ph ([phone]) ph [phone]) Patient Name: JANETT GONZALES Medical Record#: [id number] Ordering Physician: Brandon Dang DO Acct.#: [id number] : 1950 Age: 66 Sex: F Location: EMERGENCY DEPARTMENT Exam Date: 11/06/16 1010 ADM Status: REG ER Order Information: CHEST PA & LAT 2 VWS Accession Number: [id number] CPT: 63115 HISTORY: Fever, shortness of breath, pneumonia COMPARISONS: May 27, 2016 VIEWS: 2: Frontal and lateral views of the chest. FINDINGS: CARDIOMEDIASTINAL SILHOUETTE: The cardiomediastinal silhouette is normal. MICHAEL: The michael are normal. PLEURA: The costophrenic angles are sharp. No pleural abnormalities are noted. LUNG PARENCHYMA: The lungs are clear. ABDOMEN: The upper abdomen is clear. There is no subphrenic gas. BONES AND SOFT TISSUES: No bone or soft tissue abnormalities are noted. OTHER: None. IMPRESSION: NO ACTIVE CARDIOPULMONARY DISEASE. <Electronically signed by Fred Lin MD in OV> 11/06/16 1056 Dictated By: Fred Lin MD Dictated Date/Time: 11/06/16 1056 Transcribed Date/Time: 11/06/16 1055 Copy to: CC:Nicolas Shelby MD; Brandon Dang DO Imaging - [facility] [place] [facility] [place] [facility] [address] [address] ph [phone]) ph ([phone]) ph [phone]) Patient Name: JANETT GONZALES Medical Record#: [id number] Ordering Physician: Brandon Dang DO Acct.#: [id number] : 1950 Age: 66 Sex: F Location: EMERGENCY DEPARTMENT Exam Date: 11/06/16 1011 ADM Status: [facility] ER Order Information: CT BRAIN WO Accession Number: [id number] CPT: 94822 HISTORY: Slurred speech, bleed, fever COMPARISONS: None TECHNIQUE: Multiple contiguous axial CT scans were obtained of the head without intravenous contrast. FINDINGS: HEMORRHAGE/INFARCT: There is no hemorrhage or acute infarct. MASSES/SHIFT: There is no mass or shift. EXTRA-AXIAL SPACES: There are no extra-axial fluid collections. SULCI AND VENTRICLES: The sulci and ventricles are normal in size and position for the patient's stated age. CEREBRUM: There is hypoattenuation of the periventricular and subcortical white matter. BRAINSTEM: There are no focal parenchymal abnormalities. CEREBELLUM: There are no focal parenchymal abnormalities. VESSELS: The vessels are grossly normal. PARANASAL SINUSES: The paranasal sinuses are clear. ORBITS: The orbits are unremarkable. BONES AND SOFT TISSUE: No bone or soft tissue abnormalities are noted. OTHER: None IMPRESSION: NO ACUTE INTRACRANIAL PATHOLOGY. CHRONIC SMALL VESSEL ISCHEMIC CHANGES. <Electronically signed by Fred Lin MD in OV> 11/06/16 1116 Dictated By: Fred Lin MD Dictated Date/Time: 11/06/16 1116 Transcribed Date/Time: 11/06/16 1116 Copy to: CC:Nicolas Shelby MD; Brandon Dang DO Imaging - [facility] [place] [facility] [place] [facility] [address] [address] 1 of 2 Assessment - Problem List Assessment: Patient Problems Fever and chills (Acute) Sepsis (Acute) Asthma, currently inactive (Chronic) Essential (primary) hypertension (Chronic) GERD without esophagitis (Chronic) HLA B27 (HLA B27 positive) (Chronic) Obesity (BMI 30.0-34.9) (Chronic) Patient is full code (Chronic 12/30/14) Pre-diabetes (Chronic) Ulcerative colitis, acute (Chronic) Plan: Fever and chills (Acute)Sepsis (Acute) She presents with criteria for sepsis, with encephalopathy, but no other organ dysfunction. She has a low platelet count and a slightly elevated INR, but no clear additional signs of DIC. She appears to have responded to IVF and empiric broad spectrum antibacterials. We have no clear site of origin for the infection. I have spoken to microbiology - nothing growing. She is relatively immunosuppressed with the remicade. She had a dental cleaning 1 week ago. The urinalysis is not impressive for a UTI with sepsis. Her chest is clear - she has nothing focal on the CXR. She had a headache, but this has gone and no other signs of meningism. I suspect this is bacterial and it may be opportunistic. I will await blood cultures, maintain her current antibacterial therapy (Dr. Camp has informed this). I will obtain a transthoracic echocardiogram. I spoke with Dr. Camp - he thinks the liver lesion described on CT and US may be an abscess and recommends a biopsy. I have agreed with this plan Asthma, currently inactive (Chronic) This is not exacerbated Essential (primary) hypertension (Chronic) secondary diagnosis GERD without esophagitis (Chronic) secondary diagnosis HLA B27 (HLA B27 positive) (Chronic) secondary diagnosis Obesity (BMI 30.0-34.9) (Chronic) Patient is full code (Chronic 12/30/14) Pre-diabetes (Chronic) secondary diagnosis Ulcerative colitis, acute (Chronic) This is inactive at present according to the patient, however she has had a prior episode of sepsis during a flare-up of ulcerative colitis. We will obtain a consultation from GI. I discussed the above with the patient and she agreed with the management plan
[2016-11-07] MEDS ORDERED: NS 0.9% 1000 ML* 1,000 ML IV SCH (09:01)
[2016-11-07] MEDS: Citalopram TAB* 20 MG PO SCH (09:07)
[2016-11-07] MEDS: Multivitamins/Minerals TAB PO SCH (09:07)
[2016-11-07] MEDS: Heparin VIAL(*) 5000 UNITS/ML VIAL (FIVE THOUSAND) SUBCUT SCH ×3 (09:07→21:59)
[2016-11-07] MEDS: Montelukast Sodium TAB* 10 MG PO SCH (11:51)
--- NOTE | 2016-11-07 12:14 | CONS ---
CONSULTATION REPORT: DATE OF CONSULT: 11/07/16. REQUESTING PROVIDER: Dr. Armenta. CONSULTING SERVICE: Infectious Disease. REASON FOR CONSULT: Sepsis. IMPRESSION: 1. Encephalopathy present on admission, sepsis present on admission. 2. CT of the abdomen and pelvis showed heterogenously enhancing liver lesions in both liver lobes. To my eye, there is one large one is on the right and on the left. Largest is 3.8 cm per Radiology. Differential includes liver abscess given her leukocytosis and fever and sepsis, though this could be unrelated, could be malignancy, unrelated to her current presentation. 3. Ulcerative colitis, on Remicade. So, she is immunocompromised increasing the differential little bit infection hanks to include things like CMV, though none of the pattern in the liver look like a CMV, hepatitis. Other opportunistic infections seems less likely as far the liver goes and given her otherwise nonfocal exam and lack of other complaints. 4. PENICILLIN ALLERGY, tolerating cefepime. RECOMMENDATION: Continue cefepime, Flagyl and ultrasound-guided biopsy of the larger liver lesion, which was confirmed by ultrasound for culture, bacterial as well as cytology. HISTORY OF PRESENT ILLNESS: This is a 66-year-old woman with ulcerative colitis , admitted with right-sided abdominal pain and fever. She gives some of the history and her provides some of the others, as she does not know all the exact timeline other than the last weekend. Friday, she started to feel some malaise and then by Friday had worsening malaise, chills, decided on to go to [facility], developed a severe headache, was in bed for a day or two and then yesterday her noted that she was not making sense, could not understand what he was saying and so he called ambulance and brought her to the hospital. She had a fever of 39.2 on admission. She had a white cell of 12,000, which by last time was up to 17,000. She has mild transaminitis of 46, AST. Urinalysis shows trace leukocyte esterase. She has had no urinary symptoms. She had no cough or trouble breathing. No rashes. No joint pain. She did have some myalgia. Her previous headache has now resolved. Her thinks she is acting more like herself today, though not quite back to baseline. She had the CT scan with the findings above. She had a chest x-ray that was unremarkable. She did have sepsis a couple of years ago that included acute kidney injury and brief hemodialysis, otherwise has not been hospitalized for an infection recently. PAST MEDICAL HISTORY: 1. Ulcerative colitis, on Remicade. 2. Hypertension. 3. Gastroesophageal reflux disease. 4. Asthma. 5. Anxiety. 6. History of brief hemodialysis. 7. Status post cholecystectomy. 8. Status post bilateral carpal tunnel release. 9. Status post . ALLERGIES: 1. PENICILLIN - had a reaction as a child. MEDICATIONS: 1. Tylenol. 2. Calcium. 3. Citalopram. 4. Heparin subcutaneous injection. 5. Cefepime 2 g every 12 hours. 6. Flagyl 500 mg every 8 hours. 7. Trazodone at bedtime. SOCIAL HISTORY: She lives with her . They have cats that are indoors. She does not spend really any time outdoors except for on the back deck. She has had no recent travel. has been well. FAMILY HISTORY: Mother had hypertension and heart disease, small cell lung cancer. Father had hypertension and heart disease. REVIEW OF SYSTEMS: All negative to full review of systems except as noted above. PHYSICAL EXAM: Vital Signs: Temperature 37.4, heart rate 100, respiratory rate 18, blood pressure 130/60, and O2 sat 97% on room air. In general, she is awake and not in distress. Neurologic: She is oriented x3. Follows all commands. Answers all questions. Moves all her extremities. HEENT: There is no conjunctival hemorrhage. Oropharynx without lesions. Neck is supple without nuchal rigidity. Lymph Nodes: No inguinal, axillary, or epitrochlear lymphadenopathy. Heart: Regular rate and rhythm without murmurs, rubs, or gallops. Lungs: Clear to auscultation bilaterally. Abdomen: Mildly distended , but soft. Bowel sounds present. There is no tenderness to palpation except for the right upper quadrant. There is no flank tenderness to palpation or suprapubic tenderness to palpation. Skin: There is no rash or splinter hemorrhages. Musculoskeletal: There is no spine tenderness to palpation. No joint synovitis. LABORATORY DATA: White blood cell count 15.7, hemoglobin 13, platelets 120. Creatinine is 0.6. Lactate was 2.7, down to 1.1 on recheck after fluid resuscitation. CRP was 45. Please see impressions and recommendations outlined above, which I have discussed with Dr. Armenta. Thank you for asking me to see Hira Christian in consultation. [id number]/[facility] #: [id number] [place]
[2016-11-07] MEDS ORDERED: Naloxone* 0.4 MG/ML 1 ML VIAL ONE (13:50)
[2016-11-07] MEDS ORDERED: fentaNYL* 50 MCG/ML 2 ML VIAL (100 MCG VIAL) ONE (13:50)
--- NOTE | 2016-11-07 16:05 | ECHO ---
Patient: JANETT VIGIL [facility] Rec#: [id number] : 1950 Date: 11/07/2016 Age: 66y Height: 167.64 cm / 66.0 in Weight: 104.33 kg / 229.9 lbs Sex: F BSA: 2.12 Room#: 435 Admit Date#: 11/06/2016 Type: Inpatient Referring: Nicolas Shelby MD Reading: Scar Bowie DO Whip Operator: Rena BourneRDCS,RDMS Transthoracic Echocardiogram Indication: Fever BP: 129/59 HR: 95 Rhythm: A-Fib Findings History: HTN, sepsis, asthma, ulcerative colitis Technical Comments: The study quality is fair. Completed 1140 Left Ventricle: The left ventricular chamber size is normal. Mild concentric left ventricular hypertrophy is observed. Global left ventricular wall motion and contractility are within normal limits. There is normal left ventricular systolic function. The estimated ejection fraction is 55-60%. The assessment of diastolic function is non-diagnostic. Left Atrium: The left atrium is mildly dilated. Right Ventricle: The right ventricular chamber size and systolic function are within normal limits. Right Atrium: The right atrium is slightly dilated. Aortic Valve: There is no evidence of aortic valve thickening. There is a trace of aortic regurgitation. There is no evidence of aortic stenosis. Mitral Valve: The mitral valve leaflets appear normal. There is no evidence of mitral regurgitation. There is no evidence of mitral stenosis. Tricuspid Valve: The tricuspid valve leaflets are normal. There is trace tricuspid regurgitation. Unable to estimate the right ventricular systolic pressure. Pulmonic Valve: The pulmonic valve structure is not well visualized. There is no evidence of pulmonic regurgitation. There is no pulmonic stenosis. Pericardium: There is no significant pericardial effusion. Aorta: The aortic root appears normal. There is no dilatation of the aortic arch. Pulmonary Artery: The main pulmonary artery is not well visualized. Venous: The inferior vena cava appears normal in size. There is a greater than 50% respiratory change in the inferior vena cava dimension. Conclusions The left ventricular chamber size is normal. Mild concentric left ventricular hypertrophy is observed. Global left ventricular wall motion and contractility are within normal limits. There is normal left ventricular systolic function. The estimated ejection fraction is 55-60%. The left atrium is mildly dilated. The right ventricular chamber size and systolic function are within normal limits. Unable to estimate the right ventricular systolic pressure. No functionally significant valvular abnormalities. No obvious valvular abnormalities on technically difficult imaging with transthoracic imaging. Compared to prior study from 12/2014, no significant changes noted. Measurements Name Value Normal Range RVIDd (AP) 2D 2.5 cm (0.9 - 2.6) RVDdMajor (2D) 2.6 cm (2.2 - 4.4) RAd ISD 4CH 5.4 cm (3.4 - 4.9) RA (A4C)W 4 cm (2.9 - 4.6) IVSd (2D) 1.2 cm (0.6 - 1) LVPWd (2D) 1.2 cm (0.6 - 1) LVIDd (2D) 4.3 cm (3.6 - 5.4) LVIDs (2D) 2.9 cm - LV FS (2D) 32 % (25 - 45) Aortic Annulus 2.1 cm (1.4 - 2.6) Ao root diameter (2D) 3.2 cm (2.1 - 3.5) Ascending Ao 3.2 cm (2.1 - 3.4) LA dimension (AP) 2D 3.9 cm (2.3 - 3.8) LAd ISD 4CH 5.9 cm (2.9 - 5.3) LA ISD 4CH W 4.4 cm (2.5 - 4.5) Name Value Normal Range LA ESV SP 4CH (A/L) 65.2 ml - LA ESV SP 2CH (A/L) 51.94 ml - LA ESV BP (A/L) 62.03 ml - LA ESV BP (A/L) index 29.3 ml/m2 - LA ESV SP 4CH (MOD) 63.09 ml - LA ESV SP 2CH (MOD) 49.28 ml - Name Value Normal Range MV E-wave Vmax 1.1 m/sec - MV deceleration time 166 msec - LV lateral e' Vmax 0.11 m/sec - LV E:e' lateral ratio 10 ratio - Name Value Normal Range AV Vmax 1.2 m/sec - AV peak gradient 6 mmHg - LVOT Vmax 0.98 m/sec - LVOT peak gradient 3.2 mmHg - KAYLAH Vmax 0.7 m/sec - Name Value Normal Range RAP 8 mmHg - IVC diameter 1.8 cm - Name Value Normal Range PV Vmax 0.8 m/sec - PV peak gradient 2.6 mmHg -
--- NOTE | 2016-11-07 16:40 | RAD ---
INDICATION: Focal liver lesion. COMPARISON: Ultrasound liver November 06, [address] abdomen pelvis November 06, 2016 ANESTHESIA: Intravenous fentanyl and lidocaine injected locally. The benefits and risks of procedure explained to the patient and the patient signed informed consent. Multiple images of the liver were obtained and a lesion in the left lobe of the liver identified from previous imaging was located with sonographic imaging. A percutaneous tract was determined leading into the liver lesion in question. Color flow imaging did not show any pulsating arteries in the intended biopsy tract or within the intended liver parenchyma biopsy site. Prebiopsy ultrasound images were saved. A time out was performed before beginning the procedure. The patient was prepped and draped in the usual sterile fashion. The overlying skin, subcutaneous tissue and liver capsule were anesthetized with 1% lidocaine under sonographic guidance. Percutaneously and under sonographic control fine-needle aspiration was performed. Imaging was saved. The needle and syringe were provided to the attending cytopathologist. According to the same technique 2 additional fine-needle aspirations were acquired and provided to the attending cytopathologist. The post procedure ultrasound demonstrates no evidence of a large hematoma or perinephric fluid. The biopsy site was dressed with sterile gauze and direct manual pressure was held for 5 minutes. The patient tolerated procedure well without incident. The patient was returned to her inpatient room in stable condition. IMPRESSION: Uncomplicated ultrasound-guided fine-needle aspiration of a left lobe liver lesion as described above.
[2016-11-07] MEDS: Mometasone 220 MCG MDI INH SCH (17:13)
[2016-11-07] MEDS ORDERED: metroNIDAZOLE IV 500 MG/100ML* 500 MG/100 ML BAG IVPB SCH (18:30)
--- NOTE | 2016-11-07 18:30 | PN ---
Progress Note - Progress Note Date of Service: 11/07/16 SOAP: ID follow up note: GS from liver biopsy shows 4+ poly and GPC chains; suspect multifocal strep liver abscess, may be anaerobes as well. I am away until Friday, once she has defervesced I recommend 6 weeks Ceftriaxone 2 gm daily and flagyl 500 mg PO TID with weekly CBC, CMP, CRP and recheck CT Abd at end of IV treatment to ensure resolution. Please call with questions.
--- NOTE | 2016-11-07 21:40 | CONS ---
GASTROENTEROLOGY CONSULTATION: DATE OF CONSULTATION: 11/07/16 CONSULTING PHYSICIANS: Wesley Armenta MD; Nicolas Shelby MD REASON FOR CONSULTATION: Fever, liver lesions, and malaise in a woman receiving Remicade every 8 weeks for left-sided ulcerative colitis. HISTORY: This 66-year-old woman with a history of severe proctosigmoiditis and who has been on Remicade for a year, developed malaise 4 to 5 days ago. She states that she has been satisfied with her gut situation saying her stools were formed couple of weeks ago. At some point though they became looser and she also had malaise and spent several days just predominantly on the sofa or in bed. She changes the history fairly frequently and states she cannot remember. There was, however, a severe headache and then more profound malaise in the morning. Her family brought her in somewhat against her will. Her white count in the ER was 12.4 and then went up to 17.5. Lactate was 2.7 on a second determination. Part of her complaint seemed to be a right flank pain. She was not complaining primarily of diarrhea. Two years ago, she had 2 admissions just couple of weeks apart at a time when she was receiving prednisone for ulcerative colitis and Klebsiella sepsis and then enterococcal sepsis diagnosed. PAST MEDICAL HISTORY: 1. Morbid obesity. 2. 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 3. Diverticulosis. 4. HLA-B27 positive. 5. Status post cholecystectomy. 6. Anxiety. 7. Asthma. MEDICATIONS: As an outpatient: 1. Losartan 50. 2. Amlodipine 5. 3. Citalopram 20. 4. Montelukast 10. 5. Mesalamine 1.5 g. 6. Magnesium oxide 500. 7. Omeprazole 20. 8. Fish oil. SOCIAL HISTORY: She is and lives in [place]. Her father last week had a stroke. He had been living alone. This has stressed her considerably. She is planning on going away for a few days to ease her mind but with this extended several-day illness, that never happened. 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 REVIEW OF SYSTEMS: No history of CVA, TIA, syncope, palpitations, arrhythmia, heart murmur, [place], acute hepatitis, or psoriasis. She has been seen a couple of times by Dr. Ramirez, who had given her Celexa trial 8 months ago. The outcome of that she cannot recall. PHYSICAL EXAMINATION: She is a morbidly obese, elder woman, this time in no overt distress. Color good and skin warm and dry. HEENT exam is unremarkable. There is no icterus. She has no adenopathy. Her lungs are clear. Her heart sounds are regular. The abdomen is obese and beyond saying that there is no rigidity or rebound tenderness. No palpable abnormality is present. Rectal is deferred. Extremities show no edema. Neurological is nonfocal. LABORATORY DATA/DIAGNOSTIC STUDIES: CT scan - a complex 3.5 cm right lateral cystic lesion and another in the inferior aspect of the left lobe and a few other smaller lesions. There is no free fluid. IMPRESSION: The woman who presents with picture of sepsis and this what seemed to make the liver lesions identified more likely liver abscesses than metastatic disease. Most likely source from ulcerative colitis. She is going to have sampling of the liver lesions and probably later a sigmoidoscopy. [id number]/[facility] #: [id number] MTDD
[2016-11-07] MEDS: metroNIDAZOLE TAB* 250 MG PO SCH (22:01)
[2016-11-08] MEDS: Acetaminophen TAB* 325 MG PO PRN (04:21)
[2016-11-08] MEDS: Heparin VIAL(*) 5000 UNITS/ML VIAL (FIVE THOUSAND) SUBCUT SCH ×3 (04:21→20:57)
[2016-11-08 05:48] LABS: Add Diff/Slide Review? Manual Diff Added; Comments Flag Yes; Hematocrit 36 % (35-47); Hemoglobin 12.4 g/dl (12.0-16.0); Mean Corpuscular HGB Conc 35 g/dl (31-36); Mean Corpuscular Hemoglobin 30 pg (27-31); Mean Corpuscular Volume 85 fL (80-97); Mean Platelet Volume 10 um3 (7.4-10.4); Red Blood Count 4.21 10^6/ul (4.0-5.4); Red Cell Distribution Width 14 % (10.5-15); White Blood Count 11.8 10^3/ul (3.5-10.8)
[2016-11-08 06:04] LABS: BUN/Creatinine Ratio 31.4 (8-20); C Reactive Protein 301.05 mg/L (< 5.00); Calcium 8.6 mg/dL (8.6-10.3); EGFR African American 155.6 (>60); Globulin 2.8 g/dL (2-4); Indirect Bilirubin 0.6 mg/dL (0.3-1.0); Total Bilirubin 1.6 mg/dL (0.2-1.0); Total Protein 5.8 g/dL (6.4-8.9)
[2016-11-08 06:30] LABS: Immature Granulocytes 10 % (0-9); Neutrophil % 72 % (38-83); RBC Morphology Normal (Normal); Reactive Lymph % 2 % (0-6)
--- NOTE | 2016-11-08 07:44 | PN ---
Subjective - Subjective Reason for Note: Progress Note History: I note the investigations yesterday - Dr. Camp confirms his diagnosis of liver abscess with chains of streptococci seen on GM stain from the percutaneous liver biopsy. This morning she is feeling improved. She recalls 3 weeks ago after being under a lot of stress having an episode of diarrhea with blood and mucus, but none since. She has no abdominal pain today and tolerated the liver biopsy well. No more shaking chills. Active Problems: Active Problems Fever and chills (Acute) R50.9 Liver abscess (Acute) K75.0 Sepsis (Acute) Asthma, currently inactive (Chronic) J45.909 Essential (primary) hypertension (Chronic) I10 GERD without esophagitis (Chronic) K21.9 HLA B27 (HLA B27 positive) (Chronic) Z15.89 Obesity (BMI 30.0-34.9) (Chronic) E66.9 Patient is full code (Chronic 12/30/14) Z78.9 Pre-diabetes (Chronic) R73.03 Ulcerative colitis, acute (Chronic) K51.90 Current Medications: Current Medications Acetaminophen (Tylenol Tab*) 650 mg PO Q6H PRN PRN Reason: FEVER Last Admin: 11/08/16 04:21 Dose: 650 mg Albuterol (Ventolin Hfa Inhaler*) 2 puff INH QID PRN PRN Reason: SOB/WHEEZING Last Admin: 11/07/16 18:02 Dose: 2 puff Citalopram Hydrobromide (Celexa Tab*) 20 mg PO QAM [facility] Last Admin: 11/07/16 09:07 Dose: 20 mg Heparin Sodium (Porcine) (Heparin Vial(*)) 5,000 units SUBCUT Q8HR [facility] Last Admin: 11/08/16 04:21 Dose: 5,000 units Ceftriaxone Sodium 2 gm/ (Sodium Chloride) 100 mls @ 200 mls/hr IVPB Q24H [facility] Metronidazole (Flagyl Tab*) 500 mg PO TID [facility] Last Admin: 11/07/16 22:01 Dose: 500 mg Mometasone Furoate (Asmanex 220 Mcg Mdi *) 2 puff INH QPM [facility] Last Admin: 11/07/16 17:13 Dose: 2 puff Montelukast Sodium (Singulair Tab*) 10 mg PO DAILY [facility] Last Admin: 11/07/16 11:51 Dose: 10 mg Multivitamins/Minerals (Theragran/Minerals Tab*) 1 tab PO DAILY [facility] Last Admin: 11/07/16 09:07 Dose: 1 tab Temazepam (Restoril Cap*) 15 mg PO BEDTIME PRN PRN Reason: INSOMNIA Trazodone HCl (Desyrel Tab*) 50 mg PO BEDTIME PRN PRN Reason: SLEEP Home Medications: Home Medications Medication Instructions Recorded Confirmed Type Citalopram TAB* [Celexa TAB*] 20 mg PO QAM 07/02/13 11/06/16 History Omeprazole CAP* [Prilosec CAP* 20 20 mg PO DAILY 07/02/13 11/06/16 History MG] Montelukast Sodium TAB* [Singulair 10 mg PO DAILY 12/09/14 11/06/16 History 10 MG TAB*] Albuterol HFA INHALER* [Ventolin 2 puff INH QID PRN 12/30/14 11/06/16 History HFA Inhaler*] Fluticasone HFA 110 mcg(NF) 2 puff INH BID 11/28/15 11/06/16 History [Flovent HFA 110 mcg(NF)] Calcium Carbonate-Cholecalcife 3 tab PO DAILY 11/06/16 11/06/16 History [Calcium 600+D3 600-400 mg-Unit] Calcium Carbonate-Vitamin D 1 tab PO DAILY 11/06/16 11/06/16 History [Calcium 600/Vitamin D 600-200 mg-Unit] Calcium Polycarbophil TAB* 625 mg PO BID 11/06/16 11/06/16 History [Fibercon TAB*] Losartan TAB* [Cozaar TAB*] 50 mg PO DAILY 11/06/16 11/06/16 History Magnesium Oxide [Magnesium] 500 mg PO DAILY 11/06/16 11/06/16 History Mesalamine (NF) [Apriso (NF)] 1.5 gm PO DAILY 11/06/16 11/06/16 History Multiple Vitamins W/ Minerals 1 cap PO BID 11/06/16 11/06/16 History [Preservision Areds 2 + Mu] Multivitamins/Minerals TAB* 1 tab PO DAILY 11/06/16 11/06/16 History [Theragran/minerals TAB*] Navarre-3 Fatty Acids [Navarre 3] 1 cap PO DAILY 11/06/16 11/06/16 History amLODIPine TAB* [Norvasc 5 mg TAB*] 5 mg PO QPM 11/06/16 11/06/16 History celeCOXIB CAP* [CeleBREX CAP*] 100 mg PO BID 11/06/16 11/06/16 History traZODone TAB* [Desyrel TAB*] 50 mg PO BEDTIME PRN 11/06/16 11/06/16 History Allergies: Allergies Allergy/AdvReac Type Severity Reaction Status Date / Time Penicillins Allergy Unknown Verified 10/08/16 10:02 Reaction Details seasonal allergies Allergy Unknown Uncoded 10/08/16 10:02 Reaction Details Objective - Vital Signs Vital Signs: Vital Signs 11/07/16 11/07/16 11/07/16 07:49 08:00 11:35 Temperature 99.4 F 99.2 F Pulse Rate 107 92 Respiratory 18 26 18 Rate Blood Pressure 129/59 106/49 (mmHg) O2 Sat by Pulse 97 95 Oximetry 11/07/16 11/07/16 11/07/16 13:58 15:35 15:45 Temperature 101 F 101 F 98.6 F Pulse Rate 101 94 93 Respiratory 22 20 18 Rate Blood Pressure 107/60 116/44 113/40 (mmHg) O2 Sat by Pulse 92 94 94 Oximetry 11/07/16 11/07/16 11/07/16 15:54 16:00 17:32 Temperature 98.6 F 98.9 F Pulse Rate 93 111 Respiratory 18 17 Rate Blood Pressure 113/40 104/62 (mmHg) O2 Sat by Pulse 94 97 Oximetry 11/07/16 11/07/16 11/08/16 19:53 20:00 00:34 Temperature 99.3 F 98.4 F Pulse Rate 114 96 Respiratory 18 19 16 Rate Blood Pressure 125/60 125/50 (mmHg) O2 Sat by Pulse 97 97 97 Oximetry 11/08/16 04:16 Temperature 100.2 F Pulse Rate 102 Respiratory Rate Blood Pressure 121/95 (mmHg) O2 Sat by Pulse 95 Oximetry - Intake and Output Intake and Output: Intake & Output 11/05/16 11/06/16 11/07/16 11/08/16 11:59 11:59 11:59 11:59 Intake Total 1639 1200 Output Total 0 Balance 1639 1200 Weight 230 lb 6.4 oz Intake: IV Fluids 1402 NS (0.9%) 1191 IVPB 237 NS (0.9%) 167 Oral 0 1200 Output: Urine 0 Other: Estimated Void Medium Medium # Bowel Movements 3 2 Estimated Stool Amount Small Medium # Voids 3 2 ADLs: Meal Record Start: 11/06/16 16: 57 Freq: DAILY@0900,1400,1800 Status: Active Created 11/06/16 16:57 System (Rec: 11/06/16 16:57 System [id number]) Document 11/07/16 09:00 [id number] (Rec: 11/07/16 14:52 [id number] [id number]) Document 11/07/16 14:00 [id number] (Rec: 11/07/16 14:52 [id number] TELE-C06) Document 11/07/16 18:00 [id number] (Rec: 11/07/16 18:46 [id number] TELE-C01) Intake and Output Start: 11/06/16 09: 48 Freq: Status: Active Created 11/06/16 09:48 System (Rec: 11/06/16 09:48 System [id number]) Intake and Output Start: 11/06/16 16: 57 Freq: DAILY@0600,1400,2200 Status: Active Created 11/06/16 16:57 System (Rec: 11/06/16 16:57 System TELE-C11) Document 11/06/16 22:00 [id number] (Rec: 11/06/16 22:08 [id number] TELE-C01) Document 11/07/16 06:00 [id number] (Rec: 11/07/16 06:44 [id number] TELE-C34) Document 11/07/16 14:00 [id number] (Rec: 11/07/16 14:52 [id number] TELE-C06) Document 11/07/16 22:00 [id number] (Rec: 11/07/16 22:29 [id number] TELE-C01) Document 11/08/16 06:00 [id number] (Rec: 11/08/16 06:34 [id number] TELE-C34) - Physical Exam General Physical Exam Comment: Warm and well perfused, she has a tachycardia and mild hypotension, hydrated General: No Cyanosis, No Anemia, No Jaundice, No Clubbing Lungs and Chest: Yes: Chest Expansion Full, Chest Expansion Symetrica, Percussion Note Resonant, Vessicular Breath Sounds. No: Crackles, Wheezes Heart Rate and Rhythm: Regular JVP: Not Elevated Additional Cardiovascular: Yes: Normal Heart Sounds, Heart Murmur. No: Pedal Edema Abdominal Exam: Yes: Soft, Bowel Sounds Present. No: Distention, Hepatomegaly, Abdominal Tenderness Results - Results Lab Results: Laboratory Results - last 24 hr 11/07/16 11/08/16 11/08/16 13:08 05:22 05:22 WBC 11.8 H RBC 4.21 Hgb 12.4 Hct 36 MCV 85 MCH 30 MCHC 35 RDW 14 Plt Count 143 L MPV 10 Immature Gran % (Auto) 10 H Absolute Neuts (auto) 9.4 H Absolute Lymphs (auto) 0.9 L Absolute Monos (auto) 1.4 H Absolute Eos (auto) 0 Absolute Basos (auto) 0 Absolute Nucleated RBC 0 Neutrophils % 72 Band Neutrophils % 10 H Lymphocytes % 9 L Reactive Lymphs % 2 Monocytes % 7 Normal RBC Morphology Normal INR (Anticoag Therapy) 1.45 H 1.38 H Sodium Potassium Chloride Carbon Dioxide Anion Gap BUN Creatinine Est GFR ( Amer) Est GFR (Non-Af Amer) BUN/Creatinine Ratio Glucose Calcium Total Bilirubin Direct Bilirubin Indirect Bilirubin AST ALT Alkaline Phosphatase C-Reactive Protein Total Protein Albumin Globulin Albumin/Globulin Ratio 11/08/16 05:22 WBC RBC Hgb Hct MCV MCH MCHC RDW Plt Count MPV Immature Gran % (Auto) Absolute Neuts (auto) Absolute Lymphs (auto) Absolute Monos (auto) Absolute Eos (auto) Absolute Basos (auto) Absolute Nucleated RBC Neutrophils % Band Neutrophils % Lymphocytes % Reactive Lymphs % Monocytes % Normal RBC Morphology INR (Anticoag Therapy) Sodium 134 Potassium 3.0 L Chloride 105 Carbon Dioxide 24 Anion Gap 5 BUN 16 Creatinine 0.51 Est GFR ( Amer) 155.6 Est GFR (Non-Af Amer) 121.0 BUN/Creatinine Ratio 31.4 H Glucose 111 H Calcium 8.6 Total Bilirubin 1.60 H Direct Bilirubin 1.00 H Indirect Bilirubin 0.6 AST 101 H ALT 87 H Alkaline Phosphatase 74 C-Reactive Protein 301.05 H Total Protein 5.8 L Albumin 3.0 L Globulin 2.8 Albumin/Globulin Ratio 1.1 Radiology Results: Patient Name: JANETT VIGIL Medical Record#: [id number] Ordering Physician: Collin Camp MD Acct.#: [id number] : 1950 Age: 66 Sex: F Location: [address] [place] [address]/[employer] Exam Date: 11/07/16 1003 ADM Status: ADM IN Order Information: US GUIDED BX OR NEEDLE PLACEME Accession Number: [id number] CPT: 73665 INDICATION: Focal liver lesion. COMPARISON: Ultrasound liver November 06, [address] abdomen pelvis November 06, 2016 ANESTHESIA: Intravenous fentanyl and lidocaine injected locally. The benefits and risks of procedure explained to the patient and the patient signed informed consent. Multiple images of the liver were obtained and a lesion in the left lobe of the liver identified from previous imaging was located with sonographic imaging. A percutaneous tract was determined leading into the liver lesion in question. Color flow imaging did not show any pulsating arteries in the intended biopsy tract or within the intended liver parenchyma biopsy site. Prebiopsy ultrasound images were saved. A time out was performed before beginning the procedure. The patient was prepped and draped in the usual sterile fashion. The overlying skin, subcutaneous tissue and liver capsule were anesthetized with 1% lidocaine under sonographic guidance. Percutaneously and under sonographic control fine-needle aspiration was performed. Imaging was saved. The needle and syringe were provided to the attending cytopathologist. According to the same technique 2 additional fine-needle aspirations were acquired and provided to the attending cytopathologist. The post procedure ultrasound demonstrates no evidence of a large hematoma or perinephric fluid. The biopsy site was dressed with sterile gauze and direct manual pressure was held for 5 minutes. The patient tolerated procedure well without incident. The patient was returned to her inpatient room in stable condition. IMPRESSION: Uncomplicated ultrasound-guided fine-needle aspiration of a left lobe liver lesion as described above. <Electronically signed by James Mcintyre MD in OV> 11/07/16 1636 Dictated By: James Mcintyre MD Dictated Date/Time: 11/07/16 1636 Transcribed Date/Time: 11/07/16 1630 Copy to: 1 of 2 EKG Report: Transthoracic echocardiogram Conclusions The left ventricular chamber size is normal. Mild concentric left ventricular hypertrophy is observed. Global left ventricular wall motion and contractility are within normal limits. There is normal left ventricular systolic function. The estimated ejection fraction is 55-60%. The left atrium is mildly dilated. The right ventricular chamber size and systolic function are within normal limits. Unable to estimate the right ventricular systolic pressure. No functionally significant valvular abnormalities. No obvious valvular abnormalities on technically difficult imaging with transthoracic imaging. Compared to prior study from 12/2014, no significant changes noted. Other Results/Reports: RUN DATE: 11/08/16 [facility] LAB LIVE PAGE 1 RUN TIME: [address] [facility] [employer] [place], [place] [address] Specimen Inquiry Name: JANETT VIGIL : [address]: Nicolas Shelby MD Acct: [id number] Unit: [id number] AGE: 66 Location: [place] [address] Re11/06/16 SEX: F Status: ADM IN SPEC: [id number] JENN: 11/07/16-[address]: Wesley Armenta MD REQ: [id number] RECD: 11/07/16-154 STATUS: RES OTHR DR: Nicolas Camp MD _ Emory Mehta MD SOURCE: TISSUE SPDESC:OTHER ORDERED: Tissue Cult/GS, MRSA/SA SSTI, Fungal - Other, AFB Cult&Smear COMMENTS: FNA OF LIVER Procedure Result Reported Site Tissue Gram Stain Final 11/07/16- 1653 ML 4+ Neutrophils 3+ Gram Positive Cocci Tissue Culture PENDING MRSA/S. aureus SSTI PCR Final 11/07/16- 1802 ML Organism 1 MRSA NEGATIVE Organism 2 S.AUREUS NEGATIVE Fungal Cult - Other Sources PENDING Acid Fast Stain - Direct Final 11/07/16- 1705 ML AFB Smear Result No Acid Fast Bacillus Present (Negative) Preparation By Cytospin Smear Due to limited sensitivity of the smear, results should be used as an adjunct in evaluating the patient's status and cultural examination is highly recommended for diagnosis. * ML - MAIN LAB (PSC1) . END OF REPORT * ML = Testing performed at Main Lab DEPARTMENT OF PATHOLOGY, [facility] [employer] [place], [place] [address] Jakob Perez M.D. Director [facility] # [id number] Assessment - Problem List Assessment: Patient Problems Fever and chills (Acute) Liver abscess (Acute) Sepsis (Acute) Asthma, currently inactive (Chronic) Essential (primary) hypertension (Chronic) GERD without esophagitis (Chronic) HLA B27 (HLA B27 positive) (Chronic) Obesity (BMI 30.0-34.9) (Chronic) Patient is full code (Chronic 12/30/14) Pre-diabetes (Chronic) Ulcerative colitis, acute (Chronic) Plan: Fever and chills (Acute)Liver abscess (Acute)Sepsis (Acute) I have reviewed both Dr. Camp and Dr. Mehta's consultation notes and also the report of the US liver biopsy. This appears to be a liver abscess with gram positive cocci - likely Streptococci. Dr. Camp recommends we continue IV ceftriaxone for 6 weeks plus metronidazole for [address] Mehta will perform a sigmoidoscopy today to rule out active UC and also a cancer/abscess. I note her CRP is 301 - I imagine part of the reason that this so high is that it is synthesized in liver. The WBC and absolute Neuts are not changed. I note she has signs of hypovolemia - tachycardia and hypotension. I will give her a Saline bolus (she has been NPO overnight). Asthma, currently inactive (Chronic) not exacerbated Essential (primary) hypertension (Chronic) hypotensive - not taking any agents GERD without esophagitis (Chronic) secondary diagnosis HLA B27 (HLA B27 positive) (Chronic) Obesity (BMI 30.0-34.9) (Chronic) Patient is full code (Chronic 12/30/14) Pre-diabetes (Chronic) She is not significantly hyperglycemic Ulcerative colitis, acute (Chronic) Per Dr. Mehta I discussed the above with the patient and she agrees with the management plan
[2016-11-08] MEDS: Montelukast Sodium TAB* 10 MG PO SCH (08:16)
[2016-11-08] MEDS: Citalopram TAB* 20 MG PO SCH (08:17)
[2016-11-08] MEDS: Multivitamins/Minerals TAB PO SCH (08:17)
[2016-11-08] MEDS: metroNIDAZOLE TAB* 250 MG PO SCH ×3 (08:17→20:57)
[2016-11-08] MEDS: Potassium Chloride LIQUID* 20 MEQ PACKET PO SCH ×2 (08:22→20:54)
[2016-11-08] MEDS: NS 0.9% 1000 ML* 1,000 ML IV SCH ×2 (10:36→22:22)
[2016-11-08] MEDS ORDERED: Meperidine SYRINGE* 50 MG/ML ONE (15:46)
[2016-11-08] MEDS ORDERED: Midazolam* 1 MG/ML 10 ML VIAL (10 MG) ONE (15:46)
[2016-11-08] MEDS: Calcium Polycarbophil TAB* 625 MG PO SCH (18:48)
[2016-11-08] MEDS: Mometasone 220 MCG MDI INH SCH (20:33)
[2016-11-09] MEDS: Acetaminophen TAB* 325 MG PO PRN ×3 (02:06→20:35)
[2016-11-09 05:49] LABS: Hematocrit 37 % (35-47); Hemoglobin 12.8 g/dl (12.0-16.0); Mean Corpuscular HGB Conc 35 g/dl (31-36); Mean Corpuscular Hemoglobin 30 pg (27-31); Mean Corpuscular Volume 86 fL (80-97); Mean Platelet Volume 9 um3 (7.4-10.4); Red Blood Count 4.32 10^6/ul (4.0-5.4); Red Cell Distribution Width 14 % (10.5-15); White Blood Count 9.6 10^3/ul (3.5-10.8)
--- NOTE | 2016-11-09 05:59 | PRO ---
DATE: 11/08/16 * REFERRING PHYSICIANS: Dr. Nicolas Shelby, Dr. Collin Camp * PROCEDURE: Colonoscopy and ileoscopy. INDICATION: This 66-year-old woman on Remicade for severe left-sided proctosigmoiditis developed malaise and a right flank pain. She also noted some diarrhea that was nonbloody though that was not emphasized when she came to the emergency room. In recent months, she has been quite happy with her bowel condition while taking Remicade regularly stating the bowels have been formed. Sometime in the last 4 or 5 days, she started having loose stools. She is under considerable stress as her father had a stroke. She suffers from anxiety. In the emergency room, liver lesions were noted and yesterday ultrasound-guided aspiration showed what appears to be pus. Final reports are pending. No prep was used as she had reported loose stools. ENDOSCOPIST: Dr. Mehta. MEDICATION: Midazolam 4, meperidine 50. FINDINGS: She is a morbidly woman, in no overt distress at this time. There is a little bit of a right flank ache. She has not had anything to eat today. She has had a couple of loose stool passages, but small volume. She is on cefepime and Flagyl. The abdomen is obese, soft, and nontender. Perianal inspection of the rectal just showed some loose brown stool. Initial views show a granular chronic inflammation in the rectum ending at about 15 cm. There are a couple of erosions in the mid rectum. The findings are mild. It appeared to be a quiescent proctitis. Above 15 cm, the mucosa is normal. There is sludgy liquid stool in small amounts scattered throughout, but no formed stool. There is 1 to 2+ diverticulosis in the mid upper sigmoid and then a few diverticula found in the hepatic flexure. The pediatric scope advances easily through the descending, transverse, and into the right colon. Above the 15-cm ann, the colon mucosa was entirely normal. The cecum, ileocecal valve, 20-cm terminal ileum, and the right colon directly were normal. There was no indication for biopsy. The stool was aspirated for C. diff and routine culture. On slow withdrawal, there were no further findings. No polyps were seen. IMPRESSION: 1. 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 2. Mild pancolonic diverticulosis - no sign of active inflammation. 3. Liver abscesses - probably stomach and the colon though no direct link to an active problem now can be confirmed with this exam. [id number]/[facility] #: [id number] [facility]
[2016-11-09 06:09] LABS: Albumin 3.2 g/dL (3.2-5.2); BUN/Creatinine Ratio 29.1 (8-20); C Reactive Protein 191.89 mg/L (< 5.00); Calcium 8.6 mg/dL (8.6-10.3); Direct Bilirubin 0.4 mg/dL (0.03-0.18); EGFR African American 142.7 (>60); EGFR Non-African American 110.9 (>60); Globulin 2.8 g/dL (2-4); Indirect Bilirubin 0.4 mg/dL (0.3-1.0); Potassium 3.1 mmol/L (3.5-5.0); Total Bilirubin 0.8 mg/dL (0.2-1.0)
[2016-11-09] MEDS: Heparin VIAL(*) 5000 UNITS/ML VIAL (FIVE THOUSAND) SUBCUT SCH ×2 (06:30→14:18)
[2016-11-09] MEDS: metroNIDAZOLE TAB* 250 MG PO SCH ×3 (09:04→20:26)
[2016-11-09] MEDS: Multivitamins/Minerals TAB PO SCH (09:04)
[2016-11-09] MEDS: Citalopram TAB* 20 MG PO SCH (09:05)
[2016-11-09] MEDS: Potassium Chloride LIQUID* 20 MEQ PACKET PO SCH ×2 (09:05→09:07)
[2016-11-09] MEDS: Montelukast Sodium TAB* 10 MG PO SCH (09:05)
[2016-11-09] MEDS: Calcium Polycarbophil TAB* 625 MG PO SCH (09:05)
--- NOTE | 2016-11-09 10:57 | PN ---
Subjective - Subjective Reason for Note: Progress Note History: She is feeling better, she has had some chills, but no sweats or rigors. There is no pain at present. Her appetite has not returned. She has no cardiovascular symptoms. She tolerated the sigmoidoscopy. Active Problems: Active Problems Fever and chills (Acute) R50.9 Infection due to species of Streptococcus milleri group (Acute) A49.1 Liver abscess (Acute) K75.0 Sepsis (Acute) Asthma, currently inactive (Chronic) J45.909 Essential (primary) hypertension (Chronic) I10 GERD without esophagitis (Chronic) K21.9 HLA B27 (HLA B27 positive) (Chronic) Z15.89 Obesity (BMI 30.0-34.9) (Chronic) E66.9 Patient is full code (Chronic 12/30/14) Z78.9 Pre-diabetes (Chronic) R73.03 Ulcerative colitis, acute (Chronic) K51.90 Current Medications: Current Medications Acetaminophen (Tylenol Tab*) 650 mg PO Q6H PRN PRN Reason: FEVER Last Admin: 11/09/16 02:06 Dose: 650 mg Albuterol (Ventolin Hfa Inhaler*) 2 puff INH QID PRN PRN Reason: SOB/WHEEZING Last Admin: 11/07/16 18:02 Dose: 2 puff Calcium Polycarbophil (Fibercon Tab*) 625 mg PO DAILY [facility] Last Admin: 11/09/16 09:05 Dose: 625 mg Citalopram Hydrobromide (Celexa Tab*) 20 mg PO QAM [facility] Last Admin: 11/09/16 09:05 Dose: 20 mg Heparin Sodium (Porcine) (Heparin Vial(*)) 5,000 units SUBCUT Q8HR [facility] Last Admin: 11/09/16 06:30 Dose: 5,000 units Ceftriaxone Sodium 2 gm/ (Sodium Chloride) 100 mls @ 200 mls/hr IVPB Q24H [facility] Last Admin: 11/09/16 09:39 Dose: 200 mls/hr Metronidazole (Flagyl Tab*) 500 mg PO TID [facility] Last Admin: 11/09/16 09:04 Dose: 500 mg Mometasone Furoate (Asmanex 220 Mcg Mdi *) 2 puff INH QPM [facility] Last Admin: 11/08/16 20:33 Dose: Not Given Montelukast Sodium (Singulair Tab*) 10 mg PO DAILY [facility] Last Admin: 11/09/16 09:05 Dose: 10 mg Multivitamins/Minerals (Theragran/Minerals Tab*) 1 tab PO DAILY [facility] Last Admin: 11/09/16 09:04 Dose: 1 tab Potassium Chloride (Klor-Con Liquid*) 20 meq PO BID [facility] Last Admin: 11/09/16 09:07 Dose: Not Given Temazepam (Restoril Cap*) 15 mg PO BEDTIME PRN PRN Reason: INSOMNIA Trazodone HCl (Desyrel Tab*) 50 mg PO BEDTIME PRN PRN Reason: SLEEP Home Medications: Home Medications Medication Instructions Recorded Confirmed Type Citalopram TAB* [Celexa TAB*] 20 mg PO QAM 07/02/13 11/06/16 History Omeprazole CAP* [Prilosec CAP* 20 20 mg PO DAILY 07/02/13 11/06/16 History MG] Montelukast Sodium TAB* [Singulair 10 mg PO DAILY 12/09/14 11/06/16 History 10 MG TAB*] Albuterol HFA INHALER* [Ventolin 2 puff INH QID PRN 12/30/14 11/06/16 History HFA Inhaler*] Fluticasone HFA 110 mcg(NF) 2 puff INH BID 11/28/15 11/06/16 History [Flovent HFA 110 mcg(NF)] Calcium Carbonate-Cholecalcife 3 tab PO DAILY 11/06/16 11/06/16 History [Calcium 600+D3 600-400 mg-Unit] Calcium Carbonate-Vitamin D 1 tab PO DAILY 11/06/16 11/06/16 History [Calcium 600/Vitamin D 600-200 mg-Unit] Calcium Polycarbophil TAB* 625 mg PO BID 11/06/16 11/06/16 History [Fibercon TAB*] Losartan TAB* [Cozaar TAB*] 50 mg PO DAILY 11/06/16 11/06/16 History Magnesium Oxide [Magnesium] 500 mg PO DAILY 11/06/16 11/06/16 History Mesalamine (NF) [Apriso (NF)] 1.5 gm PO DAILY 11/06/16 11/06/16 History Multiple Vitamins W/ Minerals 1 cap PO BID 11/06/16 11/06/16 History [Preservision Areds 2 + Mu] Multivitamins/Minerals TAB* 1 tab PO DAILY 11/06/16 11/06/16 History [Theragran/minerals TAB*] [place]-3 Fatty Acids [[place] 3] 1 cap PO DAILY 11/06/16 11/06/16 History amLODIPine TAB* [Norvasc 5 mg TAB*] 5 mg PO QPM 11/06/16 11/06/16 History celeCOXIB CAP* [CeleBREX CAP*] 100 mg PO BID 11/06/16 11/06/16 History traZODone TAB* [Desyrel TAB*] 50 mg PO BEDTIME PRN 11/06/16 11/06/16 History Allergies: Allergies Allergy/AdvReac Type Severity Reaction Status Date / Time Penicillins Allergy Unknown Verified 10/08/16 10:02 Reaction Details seasonal allergies Allergy Unknown Uncoded 10/08/16 10:02 Reaction Details Objective - Vital Signs Vital Signs: Vital Signs 11/08/16 11/08/16 11/08/16 17:21 19:54 20:00 Temperature 98.7 F 100.3 F Pulse Rate 101 111 Respiratory 18 19 Rate Blood Pressure 111/61 104/57 (mmHg) O2 Sat by Pulse 98 97 97 Oximetry 11/08/16 11/08/16 11/08/16 20:53 21:00 23:53 Temperature 99 F 99.9 F Pulse Rate 108 104 Respiratory 18 18 24 Rate Blood Pressure 116/54 121/63 (mmHg) O2 Sat by Pulse 96 96 Oximetry 11/09/16 11/09/16 03:17 07:53 Temperature 99.3 F 98.4 F Pulse Rate 109 98 Respiratory 16 21 Rate Blood Pressure 125/60 114/67 (mmHg) O2 Sat by Pulse 92 97 Oximetry - Intake and Output Intake and Output: Intake & Output 11/06/16 11/07/16 11/08/16 11/09/16 11:59 11:59 11:59 11:59 Intake Total 1639 1200 1995 Output Total 0 750 Balance 1639 1200 1245 Weight 230 lb 6.4 oz Intake: IV Fluids 1402 1755 NS (0.9%) 1191 1755 IVPB 237 NS (0.9%) 167 Oral 0 1200 240 Output: Urine 0 750 Other: Estimated Void Medium Medium Medium # Bowel Movements 3 2 0 Estimated Stool Amount Small Medium # Voids 3 2 1 ADLs: Meal Record Start: 11/06/16 16: 57 Freq: DAILY@0900,1400,1800 Status: Active Created 11/06/16 16:57 System (Rec: 11/06/16 16:57 System TELE-C11) Document 11/07/16 09:00 [id number] (Rec: 11/07/16 14:52 [id number] TELE-C06) Document 11/07/16 14:00 [id number] (Rec: 11/07/16 14:52 [id number] TELE-C06) Document 11/07/16 18:00 [id number] (Rec: 11/07/16 18:46 [id number] TELE-C01) Document 11/08/16 09:00 [id number] (Rec: 11/08/16 10:06 [id number] TELE-C11) Document 11/08/16 14:00 [id number] (Rec: 11/08/16 14:22 [id number] TELE-C11) Intake and Output Start: 11/06/16 09: 48 Freq: Status: Active Created 11/06/16 09:48 System (Rec: 11/06/16 09:48 System ED-C29) Intake and Output Start: 11/06/16 16: 57 Freq: DAILY@0600,1400,2200 Status: Active Created 11/06/16 16:57 System (Rec: 11/06/16 16:57 System TELE-C11) Document 11/06/16 22:00 [id number] (Rec: 11/06/16 22:08 [id number] TELE-C01) Document 11/07/16 06:00 [id number] (Rec: 11/07/16 06:44 [id number] TELE-C34) Document 11/07/16 14:00 [id number] (Rec: 11/07/16 14:52 [id number] TELE-C06) Document 11/07/16 22:00 [id number] (Rec: 11/07/16 22:29 [id number] TELE-C01) Document 11/08/16 06:00 [id number] (Rec: 11/08/16 06:34 [id number] TELE-C34) Document 11/08/16 14:00 [id number] (Rec: 11/08/16 14:22 [id number] TELE-C11) Document 11/08/16 22:24 [id number] (Rec: 11/08/16 22:24 [id number] MED-M01) Document 11/09/16 00:20 [id number] (Rec: 11/09/16 00:23 [id number] MED-C02) Document 11/09/16 06:00 [id number] (Rec: 11/09/16 06:04 [id number] MEDL-C02) - Physical Exam General Physical Exam Comment: She has no stigmata of infective endocarditis. She has a mild tachycardia - TMax 100.3F. Warm and well perfused. She is alert , oriented and conversational. She is not in distress General: No Cyanosis, No Anemia, No Jaundice, No Clubbing Lungs and Chest: Yes: Chest Expansion Full, Chest Expansion Symetrica, Percussion Note Resonant, Vessicular Breath Sounds. No: Crackles, Wheezes Heart Rate and Rhythm: Regular JVP: Not Elevated Additional Cardiovascular: Yes: Normal Heart Sounds. No: Heart Murmur, Pedal Edema Abdominal Exam: Yes: Abdominal Tenderness - mild tenderness LLQ, Bowel Sounds Present. No: Distention, Abdominal Mass, Hepatomegaly Results - Results Lab Results: Laboratory Results - last 24 hr 11/09/16 11/09/16 05:41 05:41 WBC 9.6 RBC 4.32 Hgb 12.8 Hct 37 MCV 86 MCH 30 MCHC 35 RDW 14 Plt Count 175 MPV 9 Neut % (Auto) 74.8 Lymph % (Auto) 12.7 L [place] % (Auto) 11.4 H Eos % (Auto) 0.7 Baso % (Auto) 0.4 Absolute Neuts (auto) 7.2 Absolute Lymphs (auto) 1.2 Absolute Monos (auto) 1.1 H Absolute Eos (auto) 0.1 Absolute Basos (auto) 0 Absolute Nucleated RBC 0 Nucleated RBC % 0 Sodium 136 Potassium 3.1 L Chloride 107 Carbon Dioxide 25 Anion Gap 4 BUN 16 Creatinine 0.55 Est GFR ( Amer) 142.7 Est GFR (Non-Af Amer) 110.9 BUN/Creatinine Ratio 29.1 H Glucose 99 Calcium 8.6 Total Bilirubin 0.80 Direct Bilirubin 0.40 H Indirect Bilirubin 0.4 AST 48 H ALT 66 H Alkaline Phosphatase 72 C-Reactive Protein 191.89 H Total Protein 6.0 L Albumin 3.2 Globulin 2.8 Albumin/Globulin Ratio 1.1 Assessment - Problem List Assessment: Patient Problems Fever and chills (Acute) Infection due to species of Streptococcus milleri group (Acute) Liver abscess (Acute) Sepsis (Acute) Asthma, currently inactive (Chronic) Essential (primary) hypertension (Chronic) GERD without esophagitis (Chronic) HLA B27 (HLA B27 positive) (Chronic) Obesity (BMI 30.0-34.9) (Chronic) Patient is full code (Chronic 12/30/14) Pre-diabetes (Chronic) Ulcerative colitis, acute (Chronic) Plan: Fever and chills (Acute)Infection due to species of Streptococcus milleri group (Acute)Liver abscess (Acute) She had gram positive cocci growing in chains in the FNA of the liver abscess. The blood cultures are all becoming positive with Streptoccus intermedius. At present, we do not have C and S data, but she is responding clinically to ceftriaxone+metronidazole (WBC, %Neuts, C-RP, Temp etc). My review of liver abscess speaks to a few concerning issues: * They are often polymicrobial * They may require surgical drainage * They can indicate an occult cancer in the GI tract - usually upper GI * This organism is seen after dental abscesses - this patient had a dental cleaning 1- 2 weeks * I am concerned at the positivity of the blood cultures* - this is something I am most familiar with in infective endocarditis. The literature doesn't speak to the frequency of positive blood cultures in liver abscess. Does this reflect hematogenous spread to the liver from an unknown primary source, or perhaps does it indicate she may have infective endocarditis despite the transthoracic echocardiogram. The treatment with IV antibacterials for 6 weeks is the same for both liver abscess and infective endocarditis (though some sources suggest oral antibacterials are reasonable) * She is immunosuppressed - infliximab (remicade) is known to increase the risk of bacterial infection. This needs to be weighed against the risk of acute ulcerative colitis (this patient nearly from sepsis previously from uncontrolled UC) * I discussed her case with a couple of hospitalists who advised me to recheck blood cultures for negativity after treatment for a couple of days. I await the sensitivities of this organism, I am also interested in whether there is evidence of a polymicrobial infection when we finally grow the culture from the FNA biopsy. I will check a CEA for an occult GI malignancy (being aware of false positives - a negative is useful). I will consider an upper GI endoscopy and a transesophageal echocardiogram after the Hol. Sepsis (Acute) She is improving - there is no evidence of organ failure Asthma, currently inactive (Chronic) not exacerbated Essential (primary) hypertension (Chronic) stable BP - but a tachycardia GERD without esophagitis (Chronic) secondary diagnosis HLA B27 (HLA B27 positive) (Chronic) Obesity (BMI 30.0-34.9) (Chronic) Patient is full code (Chronic 12/30/14) Pre-diabetes (Chronic) FS are fine Ulcerative colitis, acute (Chronic) I reviewed Dr. Mehta's note - this is quiescent. He recommends continuing remicade - as does Dr. Camp. I am yet to be convinced. I won't restart at this time. I explained the above to the patient, her daughter, sister and Dedrick. They agree with the management plan Literature cited: *BMC Infect Dis. 2008 Jan 17;8:154. doi: 10.1186/1128-8446-2-154. Streptococcus intermedius causing infective endocarditis and abscesses: a report of three cases and review of the literature. Judd MP1, Hina M, Maria G W, Vasquez JANE. Author information Abstract BACKGROUND: Streptococcus intermedius is a member of the Streptococcus anginosus group. Clinical disease with S. intermedius is characterized by abscess formation and rarely endocarditis. Identification of Streptococcus intermedius is difficult, leading to the development of molecular methods to more accurately identify and characterize this organism. CASE PRESENTATION: Over a period of 6 months we encountered three cases of invasive Streptococcus intermedius infection presenting as hepatic abscesses, brain abscess, and endocarditis. We confirmed our microbiologic diagnosis through 16S sequencing and found a common virulence gene in each case. CONCLUSION: Our report illustrates three different clinical manifestations due to Streptococcus intermedius infection that can be encountered in healthy individuals in a community hospital setting. To our knowledge, this is the first case of Streptococcus intermedius endocarditis confirmed by 16S sequencing analysis. The use of molecular methods may allow a better understanding of the epidemiology and pathogenesis of this organism.
[2016-11-09] MEDS: Potassium Chlor TAB* 20 MEQ TAB.ER PO SCH ×2 (17:45→20:25)
[2016-11-09] MEDS: Mometasone 220 MCG MDI INH SCH (20:38)
[2016-11-09] MEDS: Enoxaparin(*) 100 MG/ML SYR SUBCUT SCH (21:11)
[2016-11-09] MEDS: traZODone TAB* 50 MG TAB PO PRN (21:12)
[2016-11-10] MEDS: Acetaminophen TAB* 325 MG PO PRN ×2 (02:30→20:01)
[2016-11-10 06:53] LABS: Hematocrit 36 % (35-47); Mean Corpuscular HGB Conc 34 g/dl (31-36); Mean Corpuscular Hemoglobin 29 pg (27-31); Mean Corpuscular Volume 87 fL (80-97); Mean Platelet Volume 9 um3 (7.4-10.4); Red Blood Count 4.14 10^6/ul (4.0-5.4); Red Cell Distribution Width 14 % (10.5-15); White Blood Count 7.8 10^3/ul (3.5-10.8)
[2016-11-10 07:07] LABS: BUN/Creatinine Ratio 24.1 (8-20); C Reactive Protein 86.9 mg/L (< 5.00); Calcium 8.3 mg/dL (8.6-10.3); EGFR African American 134.2 (>60); EGFR Non-African American 104.3 (>60); Potassium 3.2 mmol/L (3.5-5.0)
[2016-11-10] MEDS: Calcium Polycarbophil TAB* 625 MG PO SCH (07:51)
[2016-11-10] MEDS: Enoxaparin(*) 100 MG/ML SYR SUBCUT SCH (07:52)
[2016-11-10] MEDS: Potassium Chlor TAB* 20 MEQ TAB.ER PO SCH ×2 (07:52→19:58)
[2016-11-10] MEDS: metroNIDAZOLE TAB* 250 MG PO SCH ×3 (07:52→19:57)
[2016-11-10] MEDS: Montelukast Sodium TAB* 10 MG PO SCH (07:52)
[2016-11-10] MEDS: Citalopram TAB* 20 MG PO SCH (07:52)
[2016-11-10] MEDS: Multivitamins/Minerals TAB PO SCH (07:52)
--- NOTE | 2016-11-10 10:17 | PN ---
Subjective - Subjective Reason for Note: Progress Note History: She went into atrial fibrillation yesterday and I started her on enoxaparin. She has no symptoms from her heart - no palpitations, dyspnea, edema or chest pain. She has a mild tachycardia. She continues to have a low grade fever, but no chills, shakes or sweats. She has no abdominal pain, nausea or vomiting. This morning her stool were loose. Active Problems: Active Problems Atrial fibrillation (Acute) I48.91 Fever and chills (Acute) R50.9 Infection due to species of Streptococcus milleri group (Acute) A49.1 Liver abscess (Acute) K75.0 Sepsis (Acute) Asthma, currently inactive (Chronic) J45.909 Essential (primary) hypertension (Chronic) I10 GERD without esophagitis (Chronic) K21.9 HLA B27 (HLA B27 positive) (Chronic) Z15.89 Obesity (BMI 30.0-34.9) (Chronic) E66.9 Patient is full code (Chronic 12/30/14) Z78.9 Pre-diabetes (Chronic) R73.03 Ulcerative colitis, acute (Chronic) K51.90 Current Medications: Current Medications Acetaminophen (Tylenol Tab*) 650 mg PO Q6H PRN PRN Reason: FEVER Last Admin: 11/10/16 02:30 Dose: 650 mg Albuterol (Ventolin Hfa Inhaler*) 2 puff INH QID PRN PRN Reason: SOB/WHEEZING Last Admin: 11/07/16 18:02 Dose: 2 puff Calcium Polycarbophil (Fibercon Tab*) 625 mg PO DAILY [facility] Last Admin: 11/10/16 07:51 Dose: 625 mg Citalopram Hydrobromide (Celexa Tab*) 20 mg PO QAM [facility] Last Admin: 11/10/16 07:52 Dose: 20 mg Enoxaparin Sodium (Lovenox(*)) 100 mg SUBCUT Q12H [facility] Last Admin: 11/10/16 07:52 Dose: 100 mg Ceftriaxone Sodium 2 gm/ (Sodium Chloride) 100 mls @ 200 mls/hr IVPB Q24H [facility] Last Admin: 11/10/16 07:51 Dose: 200 mls/hr Metronidazole (Flagyl Tab*) 500 mg PO TID [facility] Last Admin: 11/10/16 07:52 Dose: 500 mg Mometasone Furoate (Asmanex 220 Mcg Mdi *) 2 puff INH QPM [facility] Last Admin: 11/09/16 20:38 Dose: Not Given Montelukast Sodium (Singulair Tab*) 10 mg PO DAILY [facility] Last Admin: 11/10/16 07:52 Dose: 10 mg Multivitamins/Minerals (Theragran/Minerals Tab*) 1 tab PO DAILY [facility] Last Admin: 11/10/16 07:52 Dose: 1 tab Potassium Chloride (Klor Con Er Tab*) 20 meq PO BID [facility] Last Admin: 11/10/16 07:52 Dose: 20 meq Temazepam (Restoril Cap*) 15 mg PO BEDTIME PRN PRN Reason: INSOMNIA Trazodone HCl (Desyrel Tab*) 50 mg PO BEDTIME PRN PRN Reason: SLEEP Last Admin: 11/09/16 21:12 Dose: 50 mg Home Medications: Home Medications Medication Instructions Recorded Confirmed Type Citalopram TAB* [Celexa TAB*] 20 mg PO QAM 07/02/13 11/06/16 History Omeprazole CAP* [Prilosec CAP* 20 20 mg PO DAILY 07/02/13 11/06/16 History MG] Montelukast Sodium TAB* [Singulair 10 mg PO DAILY 12/09/14 11/06/16 History 10 MG TAB*] Albuterol HFA INHALER* [Ventolin 2 puff INH QID PRN 12/30/14 11/06/16 History HFA Inhaler*] Fluticasone HFA 110 mcg(NF) 2 puff INH BID 11/28/15 11/06/16 History [Flovent HFA 110 mcg(NF)] Calcium Carbonate-Cholecalcife 3 tab PO DAILY 11/06/16 11/06/16 History [Calcium 600+D3 600-400 mg-Unit] Calcium Carbonate-Vitamin D 1 tab PO DAILY 11/06/16 11/06/16 History [Calcium 600/Vitamin D 600-200 mg-Unit] Calcium Polycarbophil TAB* 625 mg PO BID 11/06/16 11/06/16 History [Fibercon TAB*] Losartan TAB* [Cozaar TAB*] 50 mg PO DAILY 11/06/16 11/06/16 History Magnesium Oxide [Magnesium] 500 mg PO DAILY 11/06/16 11/06/16 History Mesalamine (NF) [Apriso (NF)] 1.5 gm PO DAILY 11/06/16 11/06/16 History Multiple Vitamins W/ Minerals 1 cap PO BID 11/06/16 11/06/16 History [Preservision Areds 2 + Mu] Multivitamins/Minerals TAB* 1 tab PO DAILY 11/06/16 11/06/16 History [Theragran/minerals TAB*] [place]-3 Fatty Acids [[place] 3] 1 cap PO DAILY 11/06/16 11/06/16 History amLODIPine TAB* [Norvasc 5 mg TAB*] 5 mg PO QPM 11/06/16 11/06/16 History celeCOXIB CAP* [CeleBREX CAP*] 100 mg PO BID 11/06/16 11/06/16 History traZODone TAB* [Desyrel TAB*] 50 mg PO BEDTIME PRN 11/06/16 11/06/16 History Allergies: Allergies Allergy/AdvReac Type Severity Reaction Status Date / Time Penicillins Allergy Unknown Verified 10/08/16 10:02 Reaction Details seasonal allergies Allergy Unknown Uncoded 10/08/16 10:02 Reaction Details Objective - Vital Signs Vital Signs: Vital Signs 11/09/16 11/09/16 11/09/16 15:43 20:00 20:36 Temperature 97.9 F 100.9 F Pulse Rate 88 105 Respiratory 20 17 22 Rate Blood Pressure 114/58 123/68 (mmHg) O2 Sat by Pulse 98 94 Oximetry 11/09/16 11/09/16 11/10/16 21:00 23:53 03:39 Temperature 98.4 F 98.7 F 101.1 F Pulse Rate 80 104 Respiratory 20 20 Rate Blood Pressure 116/70 128/57 (mmHg) O2 Sat by Pulse 97 94 Oximetry 11/10/16 11/10/16 11/10/16 03:40 07:35 07:36 Temperature 99.7 F 100.3 F Pulse Rate 82 Respiratory 22 16 Rate Blood Pressure 101/51 (mmHg) O2 Sat by Pulse 100 Oximetry - Intake and Output Intake and Output: Intake & Output 11/07/16 11/08/16 11/09/16 11/10/16 11:59 11:59 11:59 11:59 Intake Total 1639 1200 2225 2670 Output Total 0 750 Balance 1639 1200 1475 2670 Weight 230 lb 6.4 oz Intake: IV Fluids 1402 1755 130 NS (0.9%) 1191 1755 30 ceftriaxone 100 IVPB 237 1130 NS (0.9%) 167 ceftriaxone 1130 Oral 0 1707 347 3422 Output: Urine 0 750 Other: Estimated Void Medium Medium Medium Medium # Bowel Movements 3 2 0 0 Estimated Stool Amount Small Medium Medium # Voids 3 2 1 6 ADLs: Meal Record Start: 11/06/16 16: 57 Freq: DAILY@0900,1400,1800 Status: Active Created 11/06/16 16:57 System (Rec: 11/06/16 16:57 System TELE-C11) Document 11/07/16 09:00 [id number] (Rec: 11/07/16 14:52 [id number] TELE-C06) Document 11/07/16 14:00 [id number] (Rec: 11/07/16 14:52 [id number] TELE-C06) Document 11/07/16 18:00 [id number] (Rec: 11/07/16 18:46 [id number] TELE-C01) Document 11/08/16 09:00 [id number] (Rec: 11/08/16 10:06 [id number] TELE-C11) Document 11/08/16 14:00 [id number] (Rec: 11/08/16 14:22 [id number] TELE-C11) Document 11/09/16 09:00 [id number] (Rec: 11/09/16 12:43 [id number] MED-C11) Document 11/09/16 14:00 [id number] (Rec: 11/09/16 14:17 [id number] MED-C11) Document 11/09/16 18:00 [id number] (Rec: 11/09/16 18:36 [id number] MED-C11) Document 11/10/16 09:00 [id number] (Rec: 11/10/16 09:15 [id number] MED-M04) Intake and Output Start: 11/06/16 09: 48 Freq: Status: Active Created 11/06/16 09:48 System (Rec: 11/06/16 09:48 System ED-C29) Intake and Output Start: 11/06/16 16: 57 Freq: DAILY@0600,1400,2200 Status: Active Created 11/06/16 16:57 System (Rec: 11/06/16 16:57 System TELE-C11) Document 11/06/16 22:00 [id number] (Rec: 11/06/16 22:08 [id number] TELE-C01) Document 11/07/16 06:00 [id number] (Rec: 11/07/16 06:44 [id number] TELE-C34) Document 11/07/16 14:00 [id number] (Rec: 11/07/16 14:52 [id number] TELE-C06) Document 11/07/16 22:00 [id number] (Rec: 11/07/16 22:29 [id number] TELE-C01) Document 11/08/16 06:00 [id number] (Rec: 11/08/16 06:34 IWT3035 TELE-C34) Document 11/08/16 14:00 [id number] (Rec: 11/08/16 14:22 [id number] TELE-C11) Document 11/08/16 22:24 [id number] (Rec: 11/08/16 22:24 [id number] MED-M01) Document 11/09/16 00:20 [id number] (Rec: 11/09/16 00:23 CIE0054 MED-C02) Document 11/09/16 06:00 [id number] (Rec: 11/09/16 06:04 [id number] MEDL-C02) Document 11/09/16 14:00 [id number] (Rec: 11/09/16 14:17 [id number] MED-C11) Document 11/09/16 22:00 [id number] (Rec: 11/09/16 22:56 [id number] MED-C11) Document 11/10/16 06:00 [id number] (Rec: 11/10/16 06:08 [id number] MEDL-C02) - Physical Exam General Physical Exam Comment: Warm and well perfused. She is able to get herself out of bed and walk independently to the bathroom without orthostatic symptoms or marked dyspnea. General: No Cyanosis, No Anemia, No Jaundice, No Clubbing Skin: Normal: Rash Lungs and Chest: Yes: Chest Expansion Full, Chest Expansion Symetrica, Percussion Note Resonant, Vessicular Breath Sounds. No: Crackles, Wheezes Heart Rate and Rhythm: Tachycardia - irregular Additional Cardiovascular: Yes: Normal Heart Sounds. No: Heart Murmur, Pedal Edema Abdominal Exam: Yes: Soft. No: Distention, Abdominal Mass, Hepatomegaly, Bowel Sounds Present - Extremities Cranial Nerves II-XII Intact: Yes Limbs: Normal Power, Normal Tone - Neuro Orientation: A/O x3 Psychiatric: Normal Speech: Normal Results - Results Lab Results: Laboratory Results - last 24 hr 11/10/16 11/10/16 06:02 06:02 WBC 7.8 RBC 4.14 Hgb 12.0 Hct 36 MCV 87 MCH 29 MCHC 34 RDW 14 Plt Count 205 MPV 9 Neut % (Auto) 68.6 Lymph % (Auto) 16.2 L [place] % (Auto) 14.0 H Eos % (Auto) 0.8 Baso % (Auto) 0.4 Absolute Neuts (auto) 5.3 Absolute Lymphs (auto) 1.3 Absolute Monos (auto) 1.1 H Absolute Eos (auto) 0.1 Absolute Basos (auto) 0 Absolute Nucleated RBC 0 Nucleated RBC % 0.1 Sodium 137 Potassium 3.2 L Chloride 104 Carbon Dioxide 27 Anion Gap 6 BUN 14 Creatinine 0.58 Est GFR ( Amer) 134.2 Est GFR (Non-Af Amer) 104.3 BUN/Creatinine Ratio 24.1 H Glucose 84 Calcium 8.3 L C-Reactive Protein 86.90 H EKG Report: 11/09/2016 rate 113 QTc 453 QRS 84. Atrial fibrillation/tachycardia Assessment - Problem List Assessment: Patient Problems Atrial fibrillation (Acute) Fever and chills (Acute) Infection due to species of Streptococcus milleri group (Acute) Liver abscess (Acute) Sepsis (Acute) Asthma, currently inactive (Chronic) Essential (primary) hypertension (Chronic) GERD without esophagitis (Chronic) HLA B27 (HLA B27 positive) (Chronic) Obesity (BMI 30.0-34.9) (Chronic) Patient is full code (Chronic 12/30/14) Pre-diabetes (Chronic) Ulcerative colitis, acute (Chronic) Plan: Atrial fibrillation (Acute) This is new. I note she has had persistent hypokalemia and this may tend to reinforce this rhythm. I think this relates to her sepsis and hence I don't want to defibrillate her as she will likely go back into atrial fibrillation. I have anticoagulated her and am in the process of discussing which oral agent to use, I am giving her the pros and cons of warfarin vs newer oral agents. I will start her on a small dose of diltiazem to bring down the rate. Liver abscess (Acute) Sepsis (Acute)Fever and chills (Acute)Infection due to species of Streptococcus milleri group (Acute) She has grown the Streptoccus intermedius also from the FNA liver abscess sample. I am awaiting sensitivities. I will continue her current antibacterials Asthma, currently inactive (Chronic) inactive Essential (primary) hypertension (Chronic) Her BP is a little low GERD without esophagitis (Chronic) no sysmptoms HLA B27 (HLA B27 positive) (Chronic) Obesity (BMI 30.0-34.9) (Chronic) Patient is full code (Chronic 12/30/14) Pre-diabetes (Chronic) not a problem Ulcerative colitis, acute (Chronic) She had some loose stool, likely antibacterial related. I had a discussion with the patient: * I explained the pros and cons of the newer oral anticoagulants and their rationale. I explained what would happen if we didn't start her on one (risk of systemic embolism). I discussed the duration of therapy - likely 1 month if she spontaneously reverts to sinus rhythm * I discussed starting her on diltiazem for rate control. I explained the adverse effects - hypotension/bradycardia. I told her that she would have a fast heart rate and would be less likely to spontaneously revert to sinus rhythm without this medication. She agrees to starting diltiazem * I discussed her hypokalemia - I proposed to start her on spironolactone. She agrees to this. I explained adverse effects - hyperkalemia and hypotension. I told her that if she didn't start it, she would likely remain in atrial fibrillation. She agrees to management * I discussed her infectious illness. I told her that she required continued IV treatment and that I would have a PICC line inserted after day for home antibacterials. 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
[2016-11-10] MEDS: Temazepam CAP* 15 MG PO PRN (19:58)
[2016-11-10] MEDS: traZODone TAB* 50 MG TAB PO PRN (19:58)
[2016-11-10] MEDS: Mometasone 220 MCG MDI INH SCH (20:06)
[2016-11-11 05:54] LABS: BUN/Creatinine Ratio 22.4 (8-20); Calcium 8.6 mg/dL (8.6-10.3); EGFR African American 134.2 (>60); EGFR Non-African American 104.3 (>60); Magnesium 1.8 mg/dL (1.9-2.7); Potassium 3.3 mmol/L (3.5-5.0)
[2016-11-11] MEDS: metroNIDAZOLE TAB* 250 MG PO SCH ×3 (07:50→20:00)
[2016-11-11] MEDS: Calcium Polycarbophil TAB* 625 MG PO SCH (07:50)
[2016-11-11] MEDS: Rivaroxaban TAB(*) 20 MG TAB PO SCH (07:51)
[2016-11-11] MEDS: Montelukast Sodium TAB* 10 MG PO SCH (07:51)
[2016-11-11] MEDS: Multivitamins/Minerals TAB PO SCH (07:51)
[2016-11-11] MEDS: Citalopram TAB* 20 MG PO SCH (07:51)
[2016-11-11] MEDS: Spironolactone TAB* 25 MG PO SCH (07:51)
[2016-11-11] MEDS: Potassium Chlor TAB* 20 MEQ TAB.ER PO SCH ×2 (07:51→20:00)
[2016-11-11] MEDS: Acetaminophen TAB* 325 MG PO PRN ×2 (08:02→18:52)
[2016-11-11] MEDS ORDERED: Diltiazem CD CAP* 180 MG PO SCH ×2 (09:00→10:52)
--- NOTE | 2016-11-11 10:46 | PN ---
Subjective - Subjective Reason for Note: Progress Note History: She continues to feel better, she is afebrile and has been taking walks. She is fatigued. She has no pain and no nausea/vomiting. She has x 2 BM per day which are liquid. Active Problems: Active Problems Atrial fibrillation (Acute) I48.91 Fever and chills (Acute) R50.9 Infection due to species of Streptococcus milleri group (Acute) A49.1 Liver abscess (Acute) K75.0 Sepsis (Acute) Asthma, currently inactive (Chronic) J45.909 Essential (primary) hypertension (Chronic) I10 GERD without esophagitis (Chronic) K21.9 HLA B27 (HLA B27 positive) (Chronic) Z15.89 Obesity (BMI 30.0-34.9) (Chronic) E66.9 Patient is full code (Chronic 12/30/14) Z78.9 Pre-diabetes (Chronic) R73.03 Ulcerative colitis, acute (Chronic) K51.90 Current Medications: Current Medications Acetaminophen (Tylenol Tab*) 650 mg PO Q6H PRN PRN Reason: FEVER Last Admin: 11/11/16 08:02 Dose: 650 mg Albuterol (Ventolin Hfa Inhaler*) 2 puff INH QID PRN PRN Reason: SOB/WHEEZING Last Admin: 11/07/16 18:02 Dose: 2 puff Calcium Polycarbophil (Fibercon Tab*) 625 mg PO DAILY [facility] Last Admin: 11/11/16 07:50 Dose: 625 mg Citalopram Hydrobromide (Celexa Tab*) 20 mg PO QAM [facility] Last Admin: 11/11/16 07:51 Dose: 20 mg Diltiazem HCl (Cardizem Cd Cap*) 180 mg PO DAILY [facility] Last Admin: 11/11/16 07:50 Dose: 180 mg Ceftriaxone Sodium 2 gm/ (Sodium Chloride) 100 mls @ 200 mls/hr IVPB Q24H [facility] Last Admin: 11/11/16 07:50 Dose: 200 mls/hr Metronidazole (Flagyl Tab*) 500 mg PO TID [facility] Last Admin: 11/11/16 07:50 Dose: 500 mg Mometasone Furoate (Asmanex 220 Mcg Mdi *) 2 puff INH QPM [facility] Last Admin: 11/10/16 20:06 Dose: 2 puff Montelukast Sodium (Singulair Tab*) 10 mg PO DAILY [facility] Last Admin: 11/11/16 07:51 Dose: 10 mg Multivitamins/Minerals (Theragran/Minerals Tab*) 1 tab PO DAILY [facility] Last Admin: 11/11/16 07:51 Dose: 1 tab Potassium Chloride (Klor Con Er Tab*) 20 meq PO BID [facility] Last Admin: 11/11/16 07:51 Dose: 20 meq Rivaroxaban (Xarelto (*)) 20 mg PO DAILY [facility] Last Admin: 11/11/16 07:51 Dose: 20 mg Spironolactone (Aldactone Tab*) 25 mg PO DAILY [facility] Last Admin: 11/11/16 07:51 Dose: 25 mg Temazepam (Restoril Cap*) 15 mg PO BEDTIME PRN PRN Reason: INSOMNIA Last Admin: 11/10/16 19:58 Dose: 15 mg Trazodone HCl (Desyrel Tab*) 50 mg PO BEDTIME PRN PRN Reason: SLEEP Last Admin: 11/10/16 19:58 Dose: 50 mg Home Medications: Home Medications Medication Instructions Recorded Confirmed Type Citalopram TAB* [Celexa TAB*] 20 mg PO QAM 07/02/13 11/06/16 History Omeprazole CAP* [Prilosec CAP* 20 20 mg PO DAILY 07/02/13 11/06/16 History MG] Montelukast Sodium TAB* [Singulair 10 mg PO DAILY 12/09/14 11/06/16 History 10 MG TAB*] Albuterol HFA INHALER* [Ventolin 2 puff INH QID PRN 12/30/14 11/06/16 History HFA Inhaler*] Fluticasone HFA 110 mcg(NF) 2 puff INH BID 11/28/15 11/06/16 History [Flovent HFA 110 mcg(NF)] Calcium Carbonate-Cholecalcife 3 tab PO DAILY 11/06/16 11/06/16 History [Calcium 600+D3 600-400 mg-Unit] Calcium Carbonate-Vitamin D 1 tab PO DAILY 11/06/16 11/06/16 History [Calcium 600/Vitamin D 600-200 mg-Unit] Calcium Polycarbophil TAB* 625 mg PO BID 11/06/16 11/06/16 History [Fibercon TAB*] Losartan TAB* [Cozaar TAB*] 50 mg PO DAILY 11/06/16 11/06/16 History Magnesium Oxide [Magnesium] 500 mg PO DAILY 11/06/16 11/06/16 History Mesalamine (NF) [Apriso (NF)] 1.5 gm PO DAILY 11/06/16 11/06/16 History Multiple Vitamins W/ Minerals 1 cap PO BID 11/06/16 11/06/16 History [Preservision Areds 2 + Mu] Multivitamins/Minerals TAB* 1 tab PO DAILY 11/06/16 11/06/16 History [Theragran/minerals TAB*] [place]-3 Fatty Acids [[place] 3] 1 cap PO DAILY 11/06/16 11/06/16 History amLODIPine TAB* [Norvasc 5 mg TAB*] 5 mg PO QPM 11/06/16 11/06/16 History celeCOXIB CAP* [CeleBREX CAP*] 100 mg PO BID 11/06/16 11/06/16 History traZODone TAB* [Desyrel TAB*] 50 mg PO BEDTIME PRN 11/06/16 11/06/16 History Allergies: Allergies Allergy/AdvReac Type Severity Reaction Status Date / Time Penicillins Allergy Unknown Verified 10/08/16 10:02 Reaction Details seasonal allergies Allergy Unknown Uncoded 10/08/16 10:02 Reaction Details Objective - Vital Signs Vital Signs: Vital Signs 11/10/16 11/10/16 11/10/16 11:20 15:13 19:40 Temperature 100.1 F 99.4 F 99.7 F Pulse Rate 98 95 95 Respiratory 22 16 18 Rate Blood Pressure 139/74 129/69 134/75 (mmHg) O2 Sat by Pulse 98 96 96 Oximetry 11/10/16 11/10/16 11/11/16 20:00 23:54 04:51 Temperature 98.0 F 98.4 F Pulse Rate 86 91 Respiratory 18 16 16 Rate Blood Pressure 132/72 136/66 (mmHg) O2 Sat by Pulse 96 94 97 Oximetry 11/11/16 11/11/16 07:36 08:00 Temperature 98.6 F Pulse Rate 90 Respiratory 22 19 Rate Blood Pressure 144/94 (mmHg) O2 Sat by Pulse 95 96 Oximetry - Intake and Output Intake and Output: Intake & Output 11/08/16 11/09/16 11/10/16 11/11/16 11:59 11:59 11:59 11:59 Intake Total 1200 2225 2670 1500 Output Total 750 Balance 1200 1475 2670 1500 Intake: IV Fluids 1755 130 NS (0.9%) 1755 30 ceftriaxone 100 IVPB 1130 ceftriaxone 1130 Oral 6455 029 7924 1500 Output: Urine 750 Other: Estimated Void Medium Medium Medium Medium # Bowel Movements 2 0 0 1 Estimated Stool Amount Medium Medium Large # Voids 2 1 6 3 ADLs: Meal Record Start: 11/06/16 16: 57 Freq: DAILY@0900,1400,1800 Status: Active Created 11/06/16 16:57 System (Rec: 11/06/16 16:57 System TELE-C11) Document 11/07/16 09:00 [id number] (Rec: 11/07/16 14:52 [id number] TELE-C06) Document 11/07/16 14:00 [id number] (Rec: 11/07/16 14:52 [id number] TELE-C06) Document 11/07/16 18:00 [id number] (Rec: 11/07/16 18:46 [id number] TELE-C01) Document 11/08/16 09:00 [id number] (Rec: 11/08/16 10:06 CDW8559 TELE-C11) Document 11/08/16 14:00 [id number] (Rec: 11/08/16 14:22 [id number] TELE-C11) Document 11/09/16 09:00 [id number] (Rec: 11/09/16 12:43 [id number] MED-C11) Document 11/09/16 14:00 [id number] (Rec: 11/09/16 14:17 [id number] MED-C11) Document 11/09/16 18:00 [id number] (Rec: 11/09/16 18:36 [id number] MED-C11) Document 11/10/16 09:00 [id number] (Rec: 11/10/16 09:15 [id number] MED-M04) Document 11/10/16 13:35 [id number] (Rec: 11/10/16 13:35 [id number] MED-M04) Document 11/10/16 18:00 RCG2073 (Rec: 11/10/16 20:41 [id number] MED-C11) Intake and Output Start: 11/06/16 09: 48 Freq: Status: Active Created 11/06/16 09:48 System (Rec: 11/06/16 09:48 System ED-C29) Intake and Output Start: 11/06/16 16: 57 Freq: DAILY@0600,1400,2200 Status: Active Created 11/06/16 16:57 System (Rec: 11/06/16 16:57 System TELE-C11) Document 11/06/16 22:00 [id number] (Rec: 11/06/16 22:08 [id number] TELE-C01) Document 11/07/16 06:00 [id number] (Rec: 11/07/16 06:44 VDY0718 TELE-C34) Document 11/07/16 14:00 JPZ0251 (Rec: 11/07/16 14:52 [id number] TELE-C06) Document 11/07/16 22:00 [id number] (Rec: 11/07/16 22:29 [id number] TELE-C01) Document 11/08/16 06:00 [id number] (Rec: 11/08/16 06:34 UIC9102 TELE-C34) Document 11/08/16 14:00 [id number] (Rec: 11/08/16 14:22 WNO7072 TELE-C11) Document 11/08/16 22:24 [id number] (Rec: 11/08/16 22:24 IBS0758 MED-M01) Document 11/09/16 00:20 [id number] (Rec: 11/09/16 00:23 HHR8701 MED-C02) Document 11/09/16 06:00 [id number] (Rec: 11/09/16 06:04 [id number] MEDL-C02) Document 11/09/16 14:00 [id number] (Rec: 11/09/16 14:17 [id number] MED-C11) Document 11/09/16 22:00 [id number] (Rec: 11/09/16 22:56 [id number] MED-C11) Document 11/10/16 06:00 XIS1089 (Rec: 11/10/16 06:08 [id number] MEDL-C02) Document 11/10/16 14:00 [id number] (Rec: 11/10/16 14:48 [id number] MED-C11) Document 11/10/16 22:00 [id number] (Rec: 11/10/16 22:05 [id number] MED-C11) Document 11/11/16 05:14 [id number] (Rec: 11/11/16 05:15 [id number] MEDL-C01) - Physical Exam General: No Cyanosis, No Anemia, No Jaundice, No Clubbing Skin: Normal: Rash Lungs and Chest: Yes: Chest Expansion Full, Chest Expansion Symetrica, Percussion Note Resonant, Vessicular Breath Sounds. No: Crackles, Wheezes Heart Rate and Rhythm: Irregular JVP: Not Elevated Additional Cardiovascular: Yes: Normal Heart Sounds. No: Heart Murmur, Pedal Edema Abdominal Exam: Yes: Soft, Bowel Sounds Present. No: Distention, Abdominal Mass , Abdominal Tenderness Results - Results Lab Results: Laboratory Results - last 24 hr 11/11/16 05:27 Sodium 135 Potassium 3.3 L Chloride 103 Carbon Dioxide 26 Anion Gap 6 BUN 13 Creatinine 0.58 Est GFR ( Amer) 134.2 Est GFR (Non-Af Amer) 104.3 BUN/Creatinine Ratio 22.4 H Glucose 125 H Calcium 8.6 Magnesium 1.8 L Other Results/Reports: RUN DATE: 11/11/16 [facility] LAB LIVE PAGE 1 RUN TIME: [address] [place] [address] Specimen Inquiry Name: JANETT VIGIL : [address]: Nicolas Shelby MD Acct: [id number] Unit: [id number] AGE: 66 Location: [place] [address] Re11/06/16 SEX: F Status: ADM IN SPEC: [id number] JENN: 11/06/16-[address]: Brandon Olivares DO REQ: [id number] RECD: 11/06/16-1039 _ STATUS: RES OTHR DR: Nicolas Shelby MD SOURCE: BLOOD,VENO SPDESC: ORDERED: Blood Cult, MRSA/SA BC PCR COMMENTS: Verbal to [id number] by [id number] at 1409 on 11/08/16. Results read back accurately. Strep intermedius : Verbal to [id number] (PHARMACY)and [id number](4N) by [id number] at 0936 on 11/09/16. Results read back accurately. Procedure Result Reported Site Aerobic Culture Bottle Preliminary 11/10/16- 1217 ML No Growth Day 4 Anaerobic Culture Bottle Final 11/10/16- 1216 ML Anaerobic Btl Gram Stain Gram Positive Cocci Organism 1 STREPTOCOCCUS INTERMEDIUS 1. STREPTOCOCCUS INTERMEDIUS M.I.C. RX Chloramphenicol 4 S Ampicillin <=0.06 S Penicillin <=0.03 S Meropenem <=0.06 S Cefepime 0.5 S * Cefotaxime <=0.25 S Ceftriaxone <=0.25 S Levofloxacin <=0.25 S Azithromycin <=0.25 S Clindamycin <=0.06 S Erythromycin <=0.06 S Tetracycline 1 S CONTINUED ON NEXT PAGE * ML = Testing performed at Main Lab DEPARTMENT OF PATHOLOGY, [address] [place] [address] Jakob Perez M.D. Director [facility] # [id number] Assessment - Problem List Assessment: Patient Problems Atrial fibrillation (Acute) Fever and chills (Acute) Infection due to species of Streptococcus milleri group (Acute) Liver abscess (Acute) Sepsis (Acute) Asthma, currently inactive (Chronic) Essential (primary) hypertension (Chronic) GERD without esophagitis (Chronic) HLA B27 (HLA B27 positive) (Chronic) Obesity (BMI 30.0-34.9) (Chronic) Patient is full code (Chronic 12/30/14) Pre-diabetes (Chronic) Ulcerative colitis, acute (Chronic) Plan: Atrial fibrillation (Acute) She remains in atrial fibrillation and her rate is now controlled. She is fully anticoagulated. I note her potassium remains low and her magnesium is also a little low. Fever and chills (Acute)Infection due to species of Streptococcus milleri group (Acute)Liver abscess (Acute)Sepsis (Acute) Streptococcus intermedius is sensitive to all antibacterials. We have positive tissue and blood cultures with the same organism. In view of the risk of polymicrobial infections in liver abscesses I will maintain metronidazole and ceftriaxone. I will add a probiotic due to her diarrhea. I will wait another 24 hours for the PICC line to establish yesterday's blood cultures are negative. Asthma, currently inactive (Chronic) inactive Essential (primary) hypertension (Chronic) She is tolerating the diltiazem - I will increase the dose to diltiazem CD 240 mg qdaily GERD without esophagitis (Chronic) secondary diagnosis HLA B27 (HLA B27 positive) (Chronic) Obesity (BMI 30.0-34.9) (Chronic) Patient is full code (Chronic 12/30/14) Pre-diabetes (Chronic) not a problem Ulcerative colitis, acute (Chronic) We need to decide about the remicade I discussed the above with the patient and she agrees to the management plan
[2016-11-11] MEDS ORDERED: KCL 20 MEQ/100 ML IVPREMIX* 20 MEQ/100 ML BAG IV ONE (10:51)
[2016-11-11] MEDS: Mometasone 220 MCG MDI INH SCH (18:52)
[2016-11-11] MEDS: Temazepam CAP* 15 MG PO PRN (20:00)
[2016-11-11] MEDS: traZODone TAB* 50 MG TAB PO PRN (20:00)
[2016-11-11] MEDS: Lactobacillus Acidophilu (GG)* 1 CAP CAP PO SCH (21:00)
[2016-11-12 06:25] LABS: C Reactive Protein 25.12 mg/L (< 5.00); Calcium 8.9 mg/dL (8.6-10.3); EGFR African American 124.2 (>60); EGFR Non-African American 96.6 (>60); Potassium 3.8 mmol/L (3.5-5.0)
[2016-11-12] MEDS ORDERED: Diltiazem CD CAP* 240 MG PO SCH (08:09)
[2016-11-12] MEDS: Lactobacillus Acidophilu (GG)* 1 CAP CAP PO SCH (08:21)
[2016-11-12] MEDS: Multivitamins/Minerals TAB PO SCH (08:21)
[2016-11-12] MEDS: metroNIDAZOLE TAB* 250 MG PO SCH (08:21)
[2016-11-12] MEDS: Spironolactone TAB* 25 MG PO SCH (08:21)
[2016-11-12] MEDS: Montelukast Sodium TAB* 10 MG PO SCH (08:21)
[2016-11-12] MEDS: Calcium Polycarbophil TAB* 625 MG PO SCH (08:21)
[2016-11-12] MEDS: Citalopram TAB* 20 MG PO SCH (08:21)
[2016-11-12] MEDS: Rivaroxaban TAB(*) 20 MG TAB PO SCH (08:21)
[2016-11-12] MEDS: Potassium Chlor TAB* 20 MEQ TAB.ER PO SCH (08:21)
--- NOTE | 2016-11-12 08:42 | PN ---
Subjective - Subjective Reason for Note: Discharge Note History: She is feeling improved. She has no fever/chills and no pain. Her appetite is back to normal, she continues to have loose stool. Active Problems: Active Problems Atrial fibrillation (Acute) I48.91 Fever and chills (Acute) R50.9 Infection due to species of Streptococcus milleri group (Acute) A49.1 Liver abscess (Acute) K75.0 Sepsis (Acute) Asthma, currently inactive (Chronic) J45.909 Essential (primary) hypertension (Chronic) I10 GERD without esophagitis (Chronic) K21.9 HLA B27 (HLA B27 positive) (Chronic) Z15.89 Obesity (BMI 30.0-34.9) (Chronic) E66.9 Patient is full code (Chronic 12/30/14) Z78.9 Pre-diabetes (Chronic) R73.03 Ulcerative colitis, acute (Chronic) K51.90 Current Medications: Current Medications Acetaminophen (Tylenol Tab*) 650 mg PO Q6H PRN PRN Reason: FEVER Last Admin: 11/11/16 18:52 Dose: 650 mg Albuterol (Ventolin Hfa Inhaler*) 2 puff INH QID PRN PRN Reason: SOB/WHEEZING Last Admin: 11/07/16 18:02 Dose: 2 puff Calcium Polycarbophil (Fibercon Tab*) 625 mg PO DAILY [facility] Last Admin: 11/12/16 08:21 Dose: 625 mg Citalopram Hydrobromide (Celexa Tab*) 20 mg PO QAM [facility] Last Admin: 11/12/16 08:21 Dose: 20 mg Diltiazem HCl (Cardizem Cd Cap*) 240 mg PO DAILY [facility] Last Admin: 11/12/16 08:21 Dose: 240 mg Ceftriaxone Sodium 2 gm/ (Sodium Chloride) 100 mls @ 200 mls/hr IVPB Q24H [facility] Last Admin: 11/12/16 08:20 Dose: 200 mls/hr Lactobacillus Rhamnosus (Culturelle*) 1 cap PO BID [facility] Last Admin: 11/12/16 08:21 Dose: 1 cap Metronidazole (Flagyl Tab*) 500 mg PO TID [facility] Last Admin: 11/12/16 08:21 Dose: 500 mg Mometasone Furoate (Asmanex 220 Mcg Mdi *) 2 puff INH QPM [facility] Last Admin: 11/11/16 18:52 Dose: 2 puff Montelukast Sodium (Singulair Tab*) 10 mg PO DAILY [facility] Last Admin: 11/12/16 08:21 Dose: 10 mg Multivitamins/Minerals (Theragran/Minerals Tab*) 1 tab PO DAILY [facility] Last Admin: 11/12/16 08:21 Dose: 1 tab Potassium Chloride (Klor Con Er Tab*) 20 meq PO BID [facility] Last Admin: 11/12/16 08:21 Dose: 20 meq Rivaroxaban (Xarelto (*)) 20 mg PO DAILY [facility] Last Admin: 11/12/16 08:21 Dose: 20 mg Spironolactone (Aldactone Tab*) 25 mg PO DAILY [facility] Last Admin: 11/12/16 08:21 Dose: 25 mg Temazepam (Restoril Cap*) 15 mg PO BEDTIME PRN PRN Reason: INSOMNIA Last Admin: 11/11/16 20:00 Dose: 15 mg Trazodone HCl (Desyrel Tab*) 50 mg PO BEDTIME PRN PRN Reason: SLEEP Last Admin: 11/11/16 20:00 Dose: 50 mg Home Medications: Home Medications Medication Instructions Recorded Confirmed Type Citalopram TAB* [Celexa TAB*] 20 mg PO QAM 07/02/13 11/06/16 History Omeprazole CAP* [Prilosec CAP* 20 20 mg PO DAILY 07/02/13 11/06/16 History MG] Montelukast Sodium TAB* [Singulair 10 mg PO DAILY 12/09/14 11/06/16 History 10 MG TAB*] Albuterol HFA INHALER* [Ventolin 2 puff INH QID PRN 12/30/14 11/06/16 History HFA Inhaler*] Fluticasone HFA 110 mcg(NF) 2 puff INH BID 11/28/15 11/06/16 History [Flovent HFA 110 mcg(NF)] Calcium Carbonate-Cholecalcife 3 tab PO DAILY 11/06/16 11/06/16 History [Calcium 600+D3 600-400 mg-Unit] Calcium Carbonate-Vitamin D 1 tab PO DAILY 11/06/16 11/06/16 History [Calcium 600/Vitamin D 600-200 mg-Unit] Calcium Polycarbophil TAB* 625 mg PO BID 11/06/16 11/06/16 History [Fibercon TAB*] Losartan TAB* [Cozaar TAB*] 50 mg PO DAILY 11/06/16 11/06/16 History Magnesium Oxide [Magnesium] 500 mg PO DAILY 11/06/16 11/06/16 History Mesalamine (NF) [Apriso (NF)] 1.5 gm PO DAILY 11/06/16 11/06/16 History Multiple Vitamins W/ Minerals 1 cap PO BID 11/06/16 11/06/16 History [Preservision Areds 2 + Mu] Multivitamins/Minerals TAB* 1 tab PO DAILY 11/06/16 11/06/16 History [Theragran/minerals TAB*] [place]-3 Fatty Acids [[place] 3 1000 1 cap PO DAILY 11/06/16 11/06/16 History mg] amLODIPine TAB* [Norvasc 5 mg TAB*] 5 mg PO QPM 11/06/16 11/06/16 History traZODone TAB* [Desyrel TAB*] 50 mg PO BEDTIME PRN 11/06/16 11/06/16 History Diltiazem CD CAP* [Cardizem CD 240 mg PO DAILY #90 cap.cd 11/12/16 Rx CAP*] Potassium Chlor TAB* [Potassium 20 meq PO BID #60 tab.er 11/12/16 Rx Chlor TAB 20 MEQ*] Rivaroxaban TAB(*) [Xarelto 20 mg] 20 mg PO DAILY #30 tab 11/12/16 Rx metroNIDAZOLE TAB* [Flagyl 250 mg 500 mg PO TID #90 tab 11/12/16 Rx TAB*] Allergies: Allergies Allergy/AdvReac Type Severity Reaction Status Date / Time Penicillins Allergy Unknown Verified 10/08/16 10:02 Reaction Details seasonal allergies Allergy Unknown Uncoded 10/08/16 10:02 Reaction Details Objective - Vital Signs Vital Signs: Vital Signs 11/11/16 11/11/16 11/11/16 15:43 19:48 20:00 Temperature 98.5 F 98.6 F Pulse Rate 64 83 Respiratory 18 16 16 Rate Blood Pressure 101/53 102/51 (mmHg) O2 Sat by Pulse 98 98 98 Oximetry 11/11/16 11/11/16 11/12/16 23:51 23:52 02:39 Temperature 97.9 F 97.9 F Pulse Rate 66 20 Respiratory 13 13 Rate Blood Pressure 100/70 100/70 (mmHg) O2 Sat by Pulse 98 98 Oximetry 11/12/16 11/12/16 02:40 03:47 Temperature 98.4 F Pulse Rate 68 91 Respiratory 15 Rate Blood Pressure 129/95 (mmHg) O2 Sat by Pulse 97 Oximetry - Intake and Output Intake and Output: Intake & Output 11/09/16 11/10/16 11/11/16 11/12/16 11:59 11:59 11:59 11:59 Intake Total 2225 2670 1730 1290 Output Total 750 Balance 1475 2670 1730 1290 Intake: IV Fluids 1755 130 NS (0.9%) 1755 30 ceftriaxone 100 IVPB 1130 ceftriaxone 1130 Oral 470 1410 1730 1290 Output: Urine 750 Other: Estimated Void Medium Medium Medium Medium # Bowel Movements 0 0 1 0 Estimated Stool Amount Medium Large Medium # Voids 1 6 3 1 ADLs: Meal Record Start: 11/06/16 16: 57 Freq: DAILY@0900,1400,1800 Status: Active Created 11/06/16 16:57 System (Rec: 11/06/16 16:57 System TELE-C11) Document 11/07/16 09:00 [id number] (Rec: 11/07/16 14:52 [id number] TELE-C06) Document 11/07/16 14:00 [id number] (Rec: 11/07/16 14:52 [id number] TELE-C06) Document 11/07/16 18:00 [id number] (Rec: 11/07/16 18:46 [id number] TELE-C01) Document 11/08/16 09:00 [id number] (Rec: 11/08/16 10:06 [id number] TELE-C11) Document 11/08/16 14:00 [id number] (Rec: 11/08/16 14:22 [id number] TELE-C11) Document 11/09/16 09:00 [id number] (Rec: 11/09/16 12:43 [id number] MED-C11) Document 11/09/16 14:00 [id number] (Rec: 11/09/16 14:17 [id number] MED-C11) Document 11/09/16 18:00 [id number] (Rec: 11/09/16 18:36 [id number] MED-C11) Document 11/10/16 09:00 [id number] (Rec: 11/10/16 09:15 [id number] MED-M04) Document 11/10/16 13:35 [id number] (Rec: 11/10/16 13:35 JZP1497 MED-M04) Document 11/10/16 18:00 [id number] (Rec: 11/10/16 20:41 [id number] MED-C11) Document 11/11/16 09:00 [id number] (Rec: 11/11/16 11:42 [id number] MED-C11) Document 11/11/16 14:00 [id number] (Rec: 11/11/16 14:11 BVC6086 MED-C11) Document 11/11/16 18:00 [id number] (Rec: 11/11/16 22:23 HSL4079 MED-C11) Intake and Output Start: 11/06/16 09: 48 Freq: Status: Active Created 11/06/16 09:48 System (Rec: 11/06/16 09:48 System ED-C29) Intake and Output Start: 11/06/16 16: 57 Freq: DAILY@0600,1400,2200 Status: Active Created 11/06/16 16:57 System (Rec: 11/06/16 16:57 System TELE-C11) Document 11/06/16 22:00 [id number] (Rec: 11/06/16 22:08 MYT0097 TELE-C01) Document 11/07/16 06:00 [id number] (Rec: 11/07/16 06:44 [id number] TELE-C34) Document 11/07/16 14:00 [id number] (Rec: 11/07/16 14:52 EQG3103 TELE-C06) Document 11/07/16 22:00 [id number] (Rec: 11/07/16 22:29 COG2142 TELE-C01) Document 11/08/16 06:00 ZJX1724 (Rec: 11/08/16 06:34 WKZ1322 TELE-C34) Document 11/08/16 14:00 PQI0349 (Rec: 11/08/16 14:22 QDF7118 TELE-C11) Document 11/08/16 22:24 [id number] (Rec: 11/08/16 22:24 NQV8931 MED-M01) Document 11/09/16 00:20 [id number] (Rec: 11/09/16 00:23 KGQ5132 MED-C02) Document 11/09/16 06:00 [id number] (Rec: 11/09/16 06:04 FKJ2329 MEDL-C02) Document 11/09/16 14:00 [id number] (Rec: 11/09/16 14:17 [id number] MED-C11) Document 11/09/16 22:00 [id number] (Rec: 11/09/16 22:56 SFX2174 MED-C11) Document 11/10/16 06:00 OXH4581 (Rec: 11/10/16 06:08 ISM2535 MEDL-C02) Document 11/10/16 14:00 [id number] (Rec: 11/10/16 14:48 FAC8190 MED-C11) Document 11/10/16 22:00 [id number] (Rec: 11/10/16 22:05 LWJ8307 MED-C11) Document 11/11/16 05:14 [id number] (Rec: 11/11/16 05:15 [id number] MEDL-C01) Document 11/11/16 14:00 [id number] (Rec: 11/11/16 14:11 [id number] MED-C11) Document 11/11/16 16:47 [id number] (Rec: 11/11/16 16:47 [id number] MED-C11) Document 11/11/16 22:00 [id number] (Rec: 11/11/16 22:23 SUF1168 MED-C11) Document 11/12/16 00:20 [id number] (Rec: 11/12/16 00:20 [id number] MEDL-C01) - Physical Exam General: No Cyanosis, No Anemia, No Jaundice, No Clubbing Lungs and Chest: Yes: Chest Expansion Full, Chest Expansion Symetrica, Percussion Note Resonant, Vessicular Breath Sounds. No: Crackles, Wheezes Heart Rate and Rhythm: Irregular Additional Cardiovascular: Yes: Normal Heart Sounds. No: Heart Murmur, Pedal Edema Abdominal Exam: Yes: Soft, Bowel Sounds Present. No: Distention, Abdominal Tenderness Results - Results Lab Results: Laboratory Results - last 24 hr 11/11/16 11/12/16 15:33 05:26 Sodium 137 Potassium 3.8 Chloride 105 Carbon Dioxide 27 Anion Gap 5 BUN 13 Creatinine 0.62 Est GFR ( Amer) 124.2 Est GFR (Non-Af Amer) 96.6 BUN/Creatinine Ratio 21.0 H Glucose 91 Calcium 8.9 C-Reactive Protein 25.12 H Carcinoembryonic Ag 0.9 Other Results/Reports: RUN DATE: 11/12/16 [facility] LIVE PAGE 1 RUN TIME: [address] [place] [id number] Specimen Inquiry Name: JANETT VIGIL : [address]: Nicolas Shelby MD Acct: [id number] Unit: [id number] AGE: 66 Location: [place] [address] Re11/06/16 SEX: F Status: ADM IN SPEC: [id number] JENN: 11/09/[address]: Nicolas Shelby MD REQ: [id number] RECD: 11/09/16 STATUS: RES OTHR DR: Collin Armenta MD _ Emory Mehta MD SOURCE: BLOOD,VENO SPDESC: ORDERED: Blood Cult COMMENTS: Patient is On Antibiotics? YES Procedure Result Reported Site Aerobic Culture Bottle Preliminary 11/11/16- 1547 ML No Growth Day 2 Anaerobic Culture Bottle Preliminary 11/11/16- 154 ML No Growth Day 2 * ML - MAIN LAB (PSC1) . END OF REPORT * ML = Testing performed at Main Lab DEPARTMENT OF PATHOLOGY, [address] [place] [id number] Jakob Perez M.D. Director [facility] # [id number] Assessment - Problem List Assessment: Patient Problems Atrial fibrillation (Acute) Fever and chills (Acute) Infection due to species of Streptococcus milleri group (Acute) Liver abscess (Acute) Sepsis (Acute) Asthma, currently inactive (Chronic) Essential (primary) hypertension (Chronic) GERD without esophagitis (Chronic) HLA B27 (HLA B27 positive) (Chronic) Obesity (BMI 30.0-34.9) (Chronic) Patient is full code (Chronic 12/30/14) Pre-diabetes (Chronic) Ulcerative colitis, acute (Chronic) Plan: Atrial fibrillation (Acute) Rate controlled. Potassium at lower end of the reference range. She will continue on anticoagulation as an outpatient Fever and chills (Acute)Infection due to species of Streptococcus milleri group (Acute)Liver abscess (Acute)Sepsis (Acute) Her CRP is at baseline. Her blood cultures post fever are negative after [address] a PICC line and discharge her home for IV antibacterials at [facility] outpatients daily and metronidazole po Asthma, currently inactive (Chronic) inactive Essential (primary) hypertension (Chronic) Swapped diltiazem for amlodipine for rate control GERD without esophagitis (Chronic) HLA B27 (HLA B27 positive) (Chronic) Obesity (BMI 30.0-34.9) (Chronic) Patient is full code (Chronic 12/30/14) Pre-diabetes (Chronic) Ulcerative colitis, acute (Chronic) To follow up with Dr. Mehta in 2 weeks. I discussed the above with the patient and she expressed understanding of the plan.
[2016-11-12 10:13] VITALS: BP 111/79
--- NOTE | 2016-11-12 13:50 | DS ---
CC: Emory Mehta MD; Collin Camp MD * DISCHARGE SUMMARY: DATE OF ADMISSION: 11/06/16 DATE OF DISCHARGE: 11/12/16 DISCHARGE DIAGNOSES: 1. Liver abscesses. 2. Streptococcus intermedius cultured from abscess and venous blood. 3. Sepsis. 4. Atrial fibrillation. 5. Ulcerative colitis. SECONDARY DIAGNOSES: 1. Asthma. 2. Essential hypertension. 3. Gastroesophageal reflux disease. 4. Obesity. 5. Prediabetes. HISTORY: Ileana Gonzales is a 66-year-old right-handed white female. Her presentation is documented in Dr. Wesley Armenta's history and physical, which is part of the electronic medical record. In short, this is a patient with a history of ulcerative colitis taking Remicade, who presented with 4 days' history of right- sided pain in her abdomen, 3-day history of headache, 1 day of shaking rigors and weakness and was unable to transfer, hence had to go to the hospital by ambulance. She had a dental cleaning a week to 2 weeks prior to admission, had 1 episode 3 weeks prior to presentation, of bloody diarrhea. She has been under a lot of stress. PHYSICAL EXAMINATION: Vital Signs: Blood pressure 119/72, heart rate 89, temperature 101.6, respirations 20, and oxygen saturation 95%. Significant, was a nontender, nondistended abdominal examination. INITIAL LABS: White count 12.4, hemoglobin 9.0, hematocrit 27, platelets 99,000 , neutrophil percent 74.6, ESR 10. INR 1.63, aPTT 33.4. Chemistry: Sodium 131 , potassium 3.2, chloride 97, BUN 21, creatinine 0.61, EGFR 98.4. Calcium 8.1, magnesium 1.7, lactic acid 2.7. EKG, sinus rhythm. IMAGING AT PRESENTATION: Chest x-ray, no acute findings. Brain CAT scan, no acute intracranial pathology. Abdominal and pelvis CT scan, heterogenously enhancing low attenuation lesions of the liver. Differential diagnoses of metastatic disease, hepatic abscesses. Liver ultrasound showed a lesion in the left lobe of liver 13 x 13 x 17 mm, other lesions identified on CT are not well demonstrated on ultrasound. INITIAL ASSESSMENT: Sepsis, possible complication with hepatic abscesses in the setting of Remicade administration, started on empiric antibiotics of Cipro , vancomycin and Flagyl. IV fluids and IV antibiotic started as above. INTERVENTIONS: She had a percutaneous liver biopsy on 11/07/16. Gram stain showed gram-positive cocci in chains. Cytology showed no evidence of cancer. Microbiology, she grew Streptococcus intermedius sensitive to all antibiotics, both from blood cultures and from the liver abscess aspiration. CONSULTATIONS: She was seen in consultation by Dr. Camp, whose note is part of the electronic medical record. In short, his impression that it was she had encephalopathy on admission that an ultrasound-guided biopsy of the larger liver lesion was recommended for culture as well as cytology. Followup consultations on 11/07/16 noted 4+ polymorphs plus gram-positive cocci in chains , suggest suspected multifocal strep liver abscess, was concerned about anaerobes as well. Suggested changing to ceftriaxone 2 g a day and metronidazole 500 mg t.i.d. with weekly CBC, CMP, and CRP to recheck CT scan at the end of IV treatment. Consultation with Dr. Emory Mehta on 11/07/16, his consultation is part of the electronic medical record. Sepsis with liver lesions identified most likely liver abscesses, most likely source is ulcerative colitis. Recommended a sigmoidoscopy. On 11/08/16, sigmoidoscopy, quiescent proctitis to 15 cm. He recommended continuing Remicade, mild pancolonic diverticulitis. No sign of active inflammation. Liver abscesses, probably stomach and colon sources, but nothing found on sigmoidoscopy. EKGs, she had a transient episode of atrial fibrillation. On 11/06/16, we put her on telemetry for 2 days, this did not recur during telemetry; however, after that was stopped, she developed an irregular pulse and we anticoagulated her first with enoxaparin and then with Xarelto after informed consent from the patient. Transthoracic echocardiogram on 11/07/16, mild concentric LVH. Normal left ventricular motion and contractility, ejection fraction 55% to 60%, valves were normal. OTHER INVESTIGATIONS DURING HOSPITAL STAY: CEA was 0.9. C-reactive protein peaked on 11/08/16 at 301.05 and on the day of discharge was 25.12. She had persistent hypokalemia and hypomagnesemia during the hospitalization. Note, underlying serology was negative. On the day of discharge, she was feeling much better. Her appetite is back. She had no fevers or chills within 24 hours. She had lose stools 2 to 3 times a day from the antibiotics. No abdominal pain. She has no symptoms from the atrial fibrillation, which we treated with diltiazem for weight control. PHYSICAL EXAMINATION ON THE DAY OF DISCHARGE: Vital signs: Temperature of 98.1 , pulse 94, respirations 20, oxygen saturation 96%. Blood pressure 111/79. She has no cyanosis, jaundice, clubbing or lymphadenopathy. Cardiovascular system: Pulse is irregularly irregular. Heart sounds are normal. No added sounds or murmurs. No pedal edema. No carotid bruits. Respiratory system: Chest is clear. Abdomen: Soft, nontender without masses or organomegaly. Bowel sounds are present. She is alert and oriented. Normal speech. ASSESSMENT AND PLAN: 1. Streptococcus intermedius liver abscesses with sepsis, this bacteria sensitive to all antibiotics scanned in view of the possibility of a polymicrobial infection with an anaerobe. We are going to maintain her on ceftriaxone 2 g a day for 6 weeks and also metronidazole 500 mg t.i.d. I have warned the patient not to drink any alcohol. a PICC line on the day of discharge and she will come into outpatient at the [facility] each day for the infusion of ceftriaxone. At this time, we do not know the entry point to this bacteria. I note she had a dental treatment 2 weeks prior to admission. She was on immunosuppressive agents with Remicade, which reduced her ability to defend herself against microorganisms. Ulcerative colitis was quiescent. We may need to consider an upper GI in due course, though her CEA is negative. 2. Atrial fibrillation. This is of new onset and is likely secondary to her episode of sepsis. I have not arranged DC conversion in the acute phase as I thought there is a high chance of her going back into atrial fibrillation. Instead, I have controlled her rate with diltiazem, corrected her electrolyte imbalance and started her on Xarelto 20 mg a day. I have discussed with the patient the nature of atrial fibrillation, the risk of embolization, the importance of anticoagulation therapy. We gave her the choice of either warfarin or novel oral anticoagulants, she chose the latter. Her rate came under good control with this medication and her blood pressure was not a problem orthostatically. 3. Ulcerative colitis. The management of this long-term is up to Dr. Emory Mehta, she has an outpatient visit in two weeks. He will decide upon continuing Remicade infusions. I discussed this also with Dr. Camp. The consensus was that it was safer to have her on Remicade with a slight increased risk of immunosuppression and infection than to have the flare of the ulcerative colitis, which previously has caused her major sepsis with organ damage. 4. Essential hypertension, controlled. 5. Asthma, not exacerbated. 6. Gastroesophageal reflux disease without esophagitis, this is not exacerbated. 7. Prediabetes. She did not have an exacerbation during this hospital stay. DISCHARGE MEDICATIONS: 1. Diltiazem CD 240 mg daily. 2. Potassium chloride 20 mEq twice daily. 3. Rivaroxaban 20 mg daily. 4. Metronidazole 500 mg t.i.d. 5. Ceftriaxone 2 g IV daily to be performed at outpatient facility at the [facility] each day for 6 weeks. 6. Citalopram 20 mg daily. 7. Montelukast 10 mg p.o. daily. 8. Albuterol HFA inhaler 2 puffs 4 times a day as needed. 9. Fluticasone HFA 110 mcg 2 puffs twice daily. 10. Multivitamin once a day. 11. Magnesium oxide 500 mg a day. 12. Losartan 50 mg a day. 13. Mesalamine 1.5 g daily. 14. Trazodone 50 mg at bedtime. 15. [place]-3 fatty acid 1 capful daily. 16. Calcium carbonate with D 3 tablets a day. [id number]/[facility] #: [id number] MTDD
== END 2016-11-12 10:55 | disposition home or self-care (01) | DRG 871 ==
LOC: ED 09:33 → MEDTELE 14:58 → MED 11-08 20:35
PROVIDERS: ADMIT Internal Medicine; ATTEND Internal Medicine
PROC: 0FB03ZX Excision of Liver, Percutaneous Approach, Diagnostic (ICD-10-PCS; 2016-11-07)
PROC: 0DJD8ZZ Inspection of Lower Intestinal Tract, Via Natural or Artificial Opening Endoscopic (ICD-10-PCS; principal; 2016-11-08)
DX: A41.9 Sepsis, unspecified organism (principal); K75.0 Abscess of liver; I33.0 Acute and subacute infective endocarditis; G93.40 Encephalopathy, unspecified; K51.90 Ulcerative colitis, unspecified, without complications; J44.9 Chronic obstructive pulmonary disease, unspecified; I48.91 Unspecified atrial fibrillation; I10 Essential (primary) hypertension; Z88.0 Allergy status to penicillin; K21.9 Gastro-esophageal reflux disease without esophagitis; M19.90 Unspecified osteoarthritis, unspecified site; Z85.820 Personal history of malignant melanoma of skin; Z98.51 Tubal ligation status; R29.702 NIHSS score 2; K64.9 Unspecified hemorrhoids; K57.90 Diverticulosis of intestine, part unspecified, without perforation or abscess without bleeding; Z90.49 Acquired absence of other specified parts of digestive tract; Z82.49 Family history of ischemic heart disease and other diseases of the circulatory system; Z80.1 Family history of malignant neoplasm of trachea, bronchus and lung; Z87.891 Personal history of nicotine dependence; Z72.89 Other problems related to lifestyle; R73.03 Prediabetes; B95.4 Other streptococcus as the cause of diseases classified elsewhere; E87.6 Hypokalemia; E66.01 Morbid (severe) obesity due to excess calories; F41.9 Anxiety disorder, unspecified; K62.89 Other specified diseases of anus and rectum; K57.30 Diverticulosis of large intestine without perforation or abscess without bleeding; E83.42 Hypomagnesemia; Z79.01 Long term (current) use of anticoagulants
CPT/HCPCS: 36415; 70450; 71020; 74177; 76705; 76942; 80048; 80053; 80076; 81003; 81015; 82378; 83605; 83735; 83880; 84484; 85025; 85610; 85652; 85730; 86140; 86618; 87040; 87045; 87046; 87070; 87077; 87086; 87102; 87116; 87150; 87186; 87205; 87206; 87493; 87640; 87641; 87899; 88172; 88173; 88177; 88305; 93005; 93306; 94640; 99156; 99157; A9270-GY; C1751; J0692; J0696; J0744; J1644; J1650; J2250; J2310; J3010; J3370; J3475; J3480; Q9967

== ENCOUNTER 2017-06-25 09:47 | Day surgery (SDC) | payer MEDICARE, BC ==
[~2017-06-25 09:47] MED LIST: Acetaminophen TAB* 325 MG PO PRN; Buffered Lidocaine 0.9% SYRIN* 5 ML/SYR SYRINGE INTRADERM ONE
[2017-06-25] MEDS ORDERED: Cyclopentolate 1% OPTH.SOL* 2 ML BTL ONE (10:06)
[2017-06-25] MEDS ORDERED: Lidocaine 2% EPI 1:200000 MPF*10-20 ML VIAL ONE (10:06)
[2017-06-25] MEDS ORDERED: Povidone Iodine 5% OPTH* 30 ML BTL ONE (10:06)
[2017-06-25] MEDS ORDERED: Lidocaine 1% MPF* 2 ML VIAL ONE (10:06)
[2017-06-25] MEDS ORDERED: Ketorolac 0.5% OPHTH (NF) 0.5 % 5 ML BTL ONE (10:06)
[2017-06-25] MEDS ORDERED: Phenylephrine 2.5% OPTH.SOL* 2 ML BTL ONE (10:06)
[2017-06-25] MEDS ORDERED: Neomycin/Polymy/Dex OPTH.SUSP* MAXITROL 0.1% 5 ML ONE (10:06)
[2017-06-25] MEDS ORDERED: Proparacaine 0.5% OPHTH.SOL* 15 ML BTL ONE (10:06)
[2017-06-25] MEDS ORDERED: acetaZOLAMIDE TAB* 250 MG ONE (10:06)
[2017-06-25] MEDS ORDERED: Midazolam* 1 MG/ML 2 ML VIAL (2 MG) ONE ×2 (12:12→12:20)
[2017-06-25 12:52] VITALS: BP 139/83
--- NOTE | 2017-06-25 17:26 | OP ---
DATE OF OPERATION: 06/25/17 [facility] DATE OF : 52 SURGEON: John Bean M.D. PREOPERATIVE DIAGNOSIS: Cataract, left eye. POSTOPERATIVE DIAGNOSIS: Cataract, left eye. OPERATIVE PROCEDURE: Extracapsular cataract extraction with intraocular lens implant left eye. DESCRIPTION OF PROCEDURE: The patient was brought to the operating room after being given 1/2% Alcaine with epinephrine drops in the preoperative area. The eye was prepped and draped in the usual sterile fashion. Sterile drape and eyelid speculum were placed. Again, topical 1/2% Alcaine with epinephrine was given. A paracentesis incision was made at the 3 o'clock position with the No.75 blade. Clear cornea incision 2.2 x 2.2-mm was created at the 6 o'clock position starting at the anterior limbus using the 2.2-mm keratome. The anterior chamber was irrigated with 0.4 mL of 1% non-preservative intracameral lidocaine and filled with DisCoVisc. A capsulorrhexis was completed using the cystotome and the Utrata forceps. Hydrodissection was performed with balanced salt solution. The lens nucleus was removed with the Phacoemulsification handpiece without incident. Cortex was removed with the irrigation-aspiration handpiece. The capsular bag was re-inflated using DisCoVisc, and an [id number] implant was inserted with the shooter oriented to the 86-degree meridian. Horizontal reference guevara were made with the patient seated in the preoperative area. The irrigation-aspiration handpiece was used to remove all residual DisCoVisc. The eye was refilled with balanced salt solution, and the wound checked and found to be watertight. Topical Maxitrol drops were given. [id number]/[facility] #: [id number] MTDD
== END 2017-06-25 13:01 | disposition home or self-care (01) ==
LOC: OREAST 09:47
PROVIDERS: ATTEND Specialist
DX: H25.812 Combined forms of age-related cataract, left eye (principal); Z87.891 Personal history of nicotine dependence; H43.813 Vitreous degeneration, bilateral; I48.91 Unspecified atrial fibrillation; Z79.01 Long term (current) use of anticoagulants; I10 Essential (primary) hypertension; J45.909 Unspecified asthma, uncomplicated; R73.01 Impaired fasting glucose; F41.9 Anxiety disorder, unspecified; M81.0 Age-related osteoporosis without current pathological fracture
CPT/HCPCS: A9270-GY; J2250; V2787

== ENCOUNTER 2017-07-02 06:13 | Day surgery (SDC) | payer MEDICARE, BC ==
[2017-07-02] MEDS ORDERED: Midazolam* 1 MG/ML 2 ML VIAL (2 MG) ONE ×2 (07:14→07:49)
[2017-07-02] MEDS ORDERED: acetaZOLAMIDE TAB* 250 MG ONE (07:52)
[2017-07-02] MEDS ORDERED: Povidone Iodine 5% OPTH* 30 ML BTL ONE (07:52)
[2017-07-02] MEDS ORDERED: Cyclopentolate 1% OPTH.SOL* 2 ML BTL ONE (07:52)
[2017-07-02] MEDS ORDERED: Neomycin/Polymy/Dex OPTH.SUSP* MAXITROL 0.1% 5 ML ONE (07:52)
[2017-07-02] MEDS ORDERED: Lidocaine 1% MPF* 2 ML VIAL ONE (07:52)
[2017-07-02] MEDS ORDERED: Phenylephrine 2.5% OPTH.SOL* 2 ML BTL ONE (07:52)
[2017-07-02] MEDS ORDERED: Proparacaine 0.5% OPHTH.SOL* 15 ML BTL ONE (07:52)
[2017-07-02] MEDS ORDERED: Lidocaine 2% EPI 1:200000 MPF*10-20 ML VIAL ONE (07:52)
[2017-07-02] MEDS ORDERED: Ketorolac 0.5% OPHTH (NF) 0.5 % 5 ML BTL ONE (07:52)
[2017-07-02 08:19] VITALS: BP 132/73
--- NOTE | 2017-07-02 10:59 | OP ---
OPERATIVE NOTE: DATE OF OPERATION: 07/02/17 - [facility] DATE OF : 52 SURGEON: John Bean M.D. PREOPERATIVE DIAGNOSIS: Cataract, right eye. POSTOPERATIVE DIAGNOSIS: Cataract, right eye. OPERATIVE PROCEDURE: Extracapsular cataract extraction with IOL, right eye. PROCEDURE: The patient was brought to the operating room after being given 1/2 % Alcaine with epinephrine drops in the preoperative area. The eye was prepped and draped in the usual sterile fashion. Sterile drape and eyelid speculum were placed. Again, topical 1/2% Alcaine with epinephrine was given. A paracentesis incision was made at the 9 o'clock position with the No.75 blade. Clear cornea incision 2.2 x 2.2-mm was created at the 12 o'clock position starting at the anterior limbus using the 2.2-mm keratome. The anterior chamber was irrigated with 0.4 mL of 1% non-preservative intracameral lidocaine and filled with DisCoVisc. A capsulorrhexis was completed using the cystotome and the Utrata forceps. Hydrodissection was performed with balanced salt solution. The lens nucleus was removed with the Phacoemulsification handpiece without incident. Cortex was removed with the irrigation-aspiration handpiece. The capsular bag was re-inflated using DisCoVisc and an [id number] diopter implant was inserted with the shooter and oriented to the 83-degree meridian. The irrigation-aspiration handpiece was used to remove all residual DisCoVisc. The eye was refilled with balanced salt solution and the wound checked and found to be watertight. Topical Maxitrol drops were given. [id number]/[facility] #: [id number] [facility]
== END 2017-07-02 08:30 | disposition home or self-care (01) ==
LOC: OREAST 06:13
PROVIDERS: ATTEND Specialist
DX: H25.811 Combined forms of age-related cataract, right eye (principal); H35.3131 Nonexudative age-related macular degeneration, bilateral, early dry stage; H43.813 Vitreous degeneration, bilateral; Z87.891 Personal history of nicotine dependence; I10 Essential (primary) hypertension; F41.8 Other specified anxiety disorders; I48.91 Unspecified atrial fibrillation; Z79.01 Long term (current) use of anticoagulants; J45.909 Unspecified asthma, uncomplicated; M81.0 Age-related osteoporosis without current pathological fracture
CPT/HCPCS: A9270-GY; J2250; V2787

== ENCOUNTER 2018-01-06 09:26 | Inpatient (IN) | payer MEDICARE, BC ==
--- NOTE | 2017-12-25 12:02 | HP ---
AMENDED REPORT NOW INCLUDES DESIGNATED COSIGNER HISTORY AND PHYSICAL: DATE OF SURGERY/ADMISSION: 01/06/18 DATE OF OFFICE VISIT: 12/24/17 SURGEON: Seema Dubois MD * (DICTATED BY NORY MODI) PROCEDURE: Right total knee arthroplasty. CHIEF COMPLAINT: Right knee pain. HISTORY OF PRESENT ILLNESS: Ms. Gonzales is a 67-year-old female with continued complaints of right knee pain. She has failed conservative treatment and elected to proceed with a right total knee arthroplasty, which is scheduled for 01/06/18. PAST MEDICAL HISTORY: AFib, GERD, hypertension, ulcerative colitis, and history of melanoma. PAST SURGICAL HISTORY: Cardioversion, bilateral carpal tunnel release, D and C x2, cataract removal, right knee scope, tonsillectomy, tubal ligation, C- section. CURRENT MEDICATIONS: 1. Probiotic. 2. Remicade 100 mg every 7 weeks. 3. Aspen-3. 4. Omeprazole 20 mg daily. 5. Trazodone 50 mg q.h.s. 6. Citalopram hydrobromide 10 mg daily. 7. Apriso 0.375 g 4 tabs every morning. 8. Losartan potassium 50 mg daily. 9. PreserVision AREDS 2 tabs in the morning, 1 tab at night. 10. Magnesium 250 mg 2 tabs daily. 11. Flintstones vitamin. 12. Albuterol as needed. 13. Flovent HFA as needed. 14. Xarelto 20 mg daily. 15. Cartia 240 mg daily. 16. FiberCon. 17. Fish oil. 18. Flonase. 19. Tylenol as needed. 20. Calcium 500 mg 3 tablets daily. 21. Osteo Bi-Flex. ALLERGIES: PENICILLIN and IV CONTRAST. FAMILY HISTORY: Coronary artery disease, hypertension, cancer, and stroke. SOCIAL HISTORY: She is a 67-year-old female. She lives with her . She does not smoke or use drugs. Uses occasional alcohol. REVIEW OF SYSTEMS: A complete 14-point review of systems was reviewed with the patient. It is positive for GERD. She denies any history of DVT, PE, hepatitis , HIV or anesthesia problems. PHYSICAL EXAMINATION GENERAL: She is well developed, well nourished, in no acute distress. VITAL SIGNS: She stands 66 inches tall, weighs 240 pounds. Her blood pressure is 138/70, her heart rate is 76. HEENT: Normocephalic, atraumatic. NECK: Supple. No palpable lymph nodes. PULMONARY: The lungs are clear to auscultation bilaterally. CARDIO: Regular rate and rhythm. Strong S1, S2. ABDOMEN: Soft, nontender, and nondistended. MUSCULOSKELETAL: Right lower extremity, the skin is intact. There are no open wounds or abrasions. There is a moderate joint effusion. She has some tenderness over the medial and lateral joint line. Range of motion is 10 to 120 degrees of flexion. She has a 2+ dorsalis pedis pulse. Intact sensation. Her lower extremities muscle group strengths are intact at 5/5. NEUROLOGICAL: She is alert and oriented x3. ASSESSMENT AND PLAN: Ms. Gonzales is a 67-year-old female with end-stage osteoarthritis of the right knee. She has failed conservative treatment and elected to proceed with a right total knee arthroplasty. Her surgery is scheduled for 01/06/[address] Dubois discussed the risks and benefits of the surgery at today's visit and all of her questions were answered. She will follow up with Dr. Dubois 2 weeks after the surgery. Dr. Dubois did discuss with the patient and she expressed her understanding that her last dose of Xarelto was supposed to be on 01/02/18. NORY MODI [id number]/[facility] #: [id number] HARME[place]
[~2018-01-06 09:26] MED LIST changes: -Acetaminophen TAB* 325 MG PO PRN; +Buffered Lidocaine 0.9% SYRIN* 5 ML/SYR SYRINGE ONE; +Clindamycin 900 MG/D5W BAG(*) 900 MG/50 ML BAG IVPB ONE; +Tranexamic Acid 1,000 MG in NS 0.9% 50 ML* (outpatient use) IV SCH
[2018-01-06] MEDS ORDERED: fentaNYL* 50 MCG/ML 2 ML VIAL (100 MCG VIAL) ONE ×2 (09:28→14:03)
[2018-01-06] MEDS ORDERED: Midazolam* 1 MG/ML 2 ML VIAL (2 MG) ONE (09:28)
--- OUTSIDE RECORDS SUMMARY | 2018-01-06 09:31 | XMS REPORT ---
:1950 External Reference #:[id number] Author Organization [facility] Address [address] [place] [address] [place] [address] Phone [phone] Care Team Providers Name Role Phone Nicolas Shelby MD Primary Care Physician Unavailable Payers Type Date Identification Numbers Payment Provider Subscriber Medicare Primary Effective: Policy Number: Medicare Janett Love 2016 [id number] Christian PayID: [id number] [address] [place] [address] Medigap Part B Policy Number: [id number] BS Facets Dedrick Vigil PayID: [id number] [address] [address] [place] [address] Problems Date Description Provider Status Onset: 10/17/2017 Localized, primary osteoarthritis Mark Rodriguez MD Active Onset: 07/06/2013 Chronic ulcerative rectosigmoiditis Emory Mehta MD Active Note: seen by Dr Jacky foster [facility] November 2015 Onset: 11/28/1987 Obesity Emory Mehta MD Active Onset: 03/29/2017 Paroxysmal atrial flutter Emory Mehta MD Active Note: Xarelto after cardioversion Family History Date Family Member(s) Problem(s) Comments General Arthritis Father Alcoholism Father due to Stroke () Mother due to Cancer () Siblings 3 One due to liver issues One sister had history of ablation. Social History Type Date Description Comments Marital Status Lives With Family Occupation Retired Occupation [employer] ETOH Use Occasionally consumes alcohol wine, once a week Smoking Patient is a former smoker socially for about a year when in college - more than 40 years ago Recreational Drug Use Denies Drug Use Daily Caffeine Consumes on average 2 cups of regular coffee per day Exercise Type/Frequency Does not exercise Has problems with back and feet Exercises for knees General Hx Text Allergies, Adverse Reactions, Alerts Date Description Reaction Status Severity Comments 04/24/2016 Penicillins active 10/17/2017 IV contrast hives active iv contrast Medications Medication Date Status Form Strength Qnty SIG Indications Ordering Provider Remicade 12/09 Active Solution 100mg 5unit Infuse 500mg K51.30 Rec s intravenously DORIS Arguello every 7 weeks Paraffin 11/25 Active Wax 500gm use daily for M17.11 hand Ashley, stretching M.DHira trigger finger and osteoarthriti s m72 Probiotic 02/23 Active Capsules 2 by mouth daily Thumb Brace 09/12 Active Misc 2unit please use M18.0 s nightly to Ashley stabilize Savi thumb due to pain from carpometacarp al arthritis on the right and left [place] 3 Active Capsules 1000mg 1 by mouth Unknown /[address] qd[address] Omeprazole Active C[address] 20mg 1 by mouth Unknown /0000 every day Trazodone HCL Active Tablets 50mg 1 tablet at Unknown /0000 bedtime as needed Montelukast Active Tablets 10mg 1 by mouth Unknown Sodium /0000 every day Citalopram Active Tablets 10mg 1 by mouth Unknown Hydrobromide /0000 every day Apriso Active Caps ER 0.375gm 4 tab by Unknown /0000 24HR mouth every morning Losartan Active Tablets 50mg 1 by mouth Unknown Potassium /0000 every day Preservision Active Capsules Areds 2 take one cap Unknown Areds 2 /0000 in the moring and one cap in the evening Magnesium 00 Active Tablets 250mg 2 by mouth Unknown /0000 once a day Flintstones Active Capsules once a day Unknown Gummy /0000 otc Albuterol Active Powder 1-2 puffs Unknown Sulfate /0000 every 6 hours as needed Flovent HFA Active Aerosol 110mcg/Ac 2 puffs twice Unknown /0000 t daily Xarelto Active Tablets 20mg 1 by mouth Unknown /0000 every day Cartia XT Active Caps ER 240mg take 1 Unknown 24HR capsule by mouth once daily Fibercon Active Tablets 625mg 2 tabs by Unknown /0000 mouth daily Fish Oil Active Capsules DR 1200mg 1 by mouth Unknown / daily Flonase Active Suspension 50mcg/Act spray 1 spray Unknown Allergy Relief in each nostril twice daily Refresh Active Solution 1.4-0.6% daily Unknown [place] Active Solution 0.025% one drop each Unknown eye twice daily prn for allergies Acetaminophen Active Tablets 500mg 1-2 tabs by Unknown / mouth prn Calcium Active Tablets 500mg 3 by mouth Unknown every day Osteo Bi-Flex Active Unknown Regular / Strength Ibuprofen 200 Active Tablets 200mg 400-600mg Unknown every 6 hours as needed for pain. Diclofenac 09/12 Hx Gel 1% 100gm apply 1 grams John Sodium on thumbs and Ashley, - hands twice a M.D. 11/15 day as needed /2017 for pain. Prednisone Hx Tablets 20mg as directed Unknown /0000 - 05/23 Remicade Hx Solution 100mg every 8 weeks Unknown / Rec - 12/09 Amlodipine Hx Tablets 5mg 1 by mouth Unknown Besylate / every day - 11/25 1500MG Hx Chewtabs 500-10-25 1 by mouth Unknown / 0mg-mg-Un daily - it 01/10 Aleve Hx Capsules 220mg 2 by mouth Unknown /0000 twice a day - as needed 09/12 Metronidazole Hx Tablets 500mg take 1 tablet Unknown 0000 by mouth - three times a 01/09 day (per /2016 decreased to twice daily as of 11/26/16) Potassium Hx Tablets ER 20Meq take 1 tablet Unknown Chloride Samantha 0000 by mouth ER - twice a day 01/09 Medications Administered in Office Medication Date Status Form Strength Qnty SIG Indications Ordering Provider No Injection 10/17/ Administered Injection Zaneb 2017 MD Michael Triamcinolone 10/17/ Administered Injection Zaneb (Kenalog) 2017 MD Michael Triamcinolone 09/12/ Administered Injection John (Kenalog) 2016 Savi Ramirez Vital Signs Date Vital Result Comment 12/22/2017 Height 66 inches 5'6" Heart Rate 78 /min BP Systolic Sitting 146 mmHg BP Diastolic Sitting 76 mmHg Respiratory Rate 16 /min Pain Level 7 11/27/2017 Height 66 inches 5'6" Weight 141.00 lb Heart Rate 66 /min BP Systolic 138 mmHg BP Diastolic 87 mmHg Respiratory Rate 20 /min Body Temperature 98.7 F O2 % BldC Oximetry 97 % BMI (Body Mass Index) 22.8 kg/m2 11/26/2017 Height 66 inches 5'6" Weight 241.00 lb without shoes Heart Rate 84 /min BP Systolic Sitting 134 mmHg Ra, reg BP Diastolic Sitting 78 mmHg Ra, reg BMI (Body Mass Index) 38.9 kg/m2 Ejection Fraction 55%-60% Portillo 02/14/17 11/25/2017 Height 66 inches 5'6" Weight 240.00 lb Heart Rate 78 /min BP Systolic Sitting 122 mmHg BP Diastolic Sitting 68 mmHg Respiratory Rate 14 /min Pain Level 5 BMI (Body Mass Index) 38.7 kg/m2 11/24/2017 Height 66 inches 5'6" Heart Rate 88 /min BP Systolic Sitting 128 mmHg BP Diastolic Sitting 70 mmHg Respiratory Rate 16 /min Body Temperature 98.3 F Pain Level 5 11/14/2017 Height 66 inches 5'6" Heart Rate 84 /min BP Systolic 130 mmHg BP Diastolic 70 mmHg Body Temperature 98.9 F Pain Level 6 10/17/2017 Height 66 inches 5'6" Weight 230.00 lb BP Systolic 132 mmHg BP Diastolic 80 mmHg Respiratory Rate 18 /min Body Temperature 98.3 F Pain Level 7 BMI (Body Mass Index) 37.1 kg/m2 06/13/2017 Height 66 inches 5'6" Weight 230.00 lb w/shoes Heart Rate 78 /min BP Systolic Sitting 134 mmHg L/A Lg cuff BP Diastolic Sitting 72 mmHg L/A Lg cuff BMI (Body Mass Index) 37.1 kg/m2 Ejection Fraction 55-60% Echo 11/07/2016 02/24/2017 Height 66 inches 5'6" Weight 224.75 lb with shoes Heart Rate 92 /min BP Systolic Sitting 138 mmHg LA lrg cuff BP Diastolic Sitting 72 mmHg LA lrg cuff BMI (Body Mass Index) 36.3 kg/m2 Ejection Fraction 55%-60% Portillo 02/14/17 02/24/2017 Height 66 inches 5'6" Weight 225.00 lb Heart Rate 76 /min BP Systolic Sitting 124 mmHg BP Diastolic Sitting 77 mmHg Respiratory Rate 18 /min Pain Level 2 BMI (Body Mass Index) 36.3 kg/m2 01/10/2017 Height 66 inches 5'6" Weight 215.25 lb Heart Rate 76 /min BP Systolic Sitting 114 mmHg LA, reg BP Diastolic Sitting 80 mmHg LA, reg BMI (Body Mass Index) 34.7 kg/m2 Ejection Fraction 55%-60% 11/07/2016 echo 12/17/2016 Height 66 inches 5'6" Weight 217.00 lb Heart Rate 72 /min BP Systolic Sitting 130 mmHg BP Diastolic Sitting 78 mmHg Respiratory Rate 14 /min Body Temperature 98.8 F BMI (Body Mass Index) 35.0 kg/m2 11/26/2016 Height 66 inches 5'6" Weight 216.00 lb per pt Heart Rate 72 /min BP Systolic Sitting 120 mmHg BP Diastolic Sitting 72 mmHg Respiratory Rate 14 /min Body Temperature 98.3 F BMI (Body Mass Index) 34.9 kg/m2 09/12/2016 Height 66 inches 5'6" Weight 131.38 lb Heart Rate 90 /min BP Systolic Sitting 124 mmHg BP Diastolic Sitting 74 mmHg Respiratory Rate 16 /min Pain Level 5 BMI (Body Mass Index) 21.2 kg/m2 05/23/2016 Height 66 inches 5'6" Heart Rate 71 /min BP Systolic Sitting 133 mmHg BP Diastolic Sitting 86 mmHg Respiratory Rate 14 /min Body Temperature 98.1 F Pain Level 2 04/24/2016 Height 66 inches 5'6" Weight 224.12 lb Heart Rate 72 /min BP Systolic Standing 130 mmHg BP Diastolic Standing 70 mmHg Respiratory Rate 16 /min Body Temperature 97.4 F Pain Level 2 BMI (Body Mass Index) 36.2 kg/m2 Results Test Date Test Result H/L Range Note Comp Metabolic Panel 10/21/2017 Sodium 138 mmol/L 135-145 Potassium 4.0 mmol/L 3.5-5.0 Chloride 105 mmol/L 101-111 Co2 Carbon Dioxide 26 mmol/L 22-32 Anion Gap 7 mmol/L 2-11 Glucose 104 mg/dL High 70-100 Blood Urea Nitrogen 29 mg/dL High 6-24 Creatinine 0.75 mg/dL 0.51-0.95 BUN/Creatinine Ratio 38.7 High 8-20 Calcium 9.4 mg/dL 8.6-10.3 Total Protein 7.1 g/dL 6.4-8.9 Albumin 3.7 g/dL 3.2-5.2 Globulin 3.4 g/dL 2-4 Albumin/Globulin Ratio 1.1 1-3 Total Bilirubin 0.40 mg/dL 0.2-1.0 Alkaline Phosphatase 77 U/L 34-104 Alt 26 U/L 7-52 Ast 23 U/L 13-39 Egfr Non- 77.3 >60 Egfr 93.5 >60 1 Laboratory test finding 10/21/2017 C Reactive Protein < 1.00 mg/L <8.01 CBC Auto Diff 10/21/2017 White Blood Count 10.2 10^3/uL 3.5-10.8 Red Blood Count 5.03 10^6/uL 4.00-5.40 Hemoglobin 14.4 g/dL 12.0-16.0 Hematocrit 43 % 35-47 Mean Corpuscular Volume 85 fL 80-97 Mean Corpuscular Hemoglobin 29 pg 27-31 Mean Corpuscular HGB Conc 34 g/dL 31-36 Red Cell Distribution Width 15 % 10.5-15 Platelet Count 236 10^3/uL 150-450 Mean Platelet Volume 8.4 um3 7.4-10.4 Abs Neutrophils 5.9 10^3/uL 1.5-7.7 Abs Lymphocytes 2.7 10^3/uL 1.0-4.8 Abs Monocytes 1.5 10^3/uL High 0-0.8 Abs Eosinophils 0.1 10^3/uL 0-0.6 Abs Basophils 0 10^3/uL 0-0.2 Abs Nucleated RBC 0 10^3/uL Granulocyte % 58.2 % 38-83 Lymphocyte % 26.0 % 25-47 Monocyte % 14.4 % High 0-7 Eosinophil % 1.2 % 0-6 Basophil % 0.2 % 0-2 Nucleated Red Blood Cells % 0 Laboratory test finding 10/21/2017 Erythrocyte Sed Rate 15 mm/Hr 0-40 CBC Auto Diff 12/10/2016 White Blood Count 7.6 10^3/uL 3.5-10.8 Red Blood Count 5.05 10^6/uL 4.0-5.4 Hemoglobin 15.2 g/dL 12.0-16.0 Hematocrit 45 % 35-47 Mean Corpuscular Volume 88 fL 80-97 Mean Corpuscular Hemoglobin 30 pg 27-31 Mean Corpuscular HGB Conc 34 g/dL 31-36 Red Cell Distribution Width 14 % 10.5-15 Platelet Count 226 10^3/uL 150-450 Mean Platelet Volume 9 um3 7.4-10.4 Abs Neutrophils 4.3 10^3/uL 1.5-7.7 Abs Lymphocytes 2.0 10^3/uL 1.0-4.8 Abs Monocytes 1.0 10^3/uL High 0-0.8 Abs Eosinophils 0.2 10^3/uL 0-0.6 Abs Basophils 0.1 10^3/uL 0-0.2 Abs Nucleated RBC 0.01 10^3/uL Granulocyte % 57.3 % 38-83 Lymphocyte % 26.1 % 25-47 Monocyte % 13.7 % High 1-9 Eosinophil % 2.0 % 0-6 Basophil % 0.9 % 0-2 Nucleated Red Blood Cells % 0.1 Comp Metabolic Panel 12/10/2016 Sodium 135 mmol/L 133-145 Potassium 4.0 mmol/L 3.5-5.0 Chloride 101 mmol/L 101-111 Co2 Carbon Dioxide 29 mmol/L 22-32 Anion Gap 5 mmol/L 2-11 Glucose 94 mg/dL 70-100 Blood Urea Nitrogen 20 mg/dL 6-24 Creatinine 0.66 mg/dL 0.51-0.95 BUN/Creatinine Ratio 30.3 High 8-20 Calcium 9.4 mg/dL 8.6-10.3 Total Protein 7.4 g/dL 6.4-8.9 Albumin 3.9 g/dL 3.2-5.2 Globulin 3.5 g/dL 2-4 Albumin/Globulin Ratio 1.1 1-3 Total Bilirubin 0.50 mg/dL 0.2-1.0 Alkaline Phosphatase 85 U/L 34-104 Alt 22 U/L 7-52 Ast 29 U/L 13-39 Egfr Non- 89.9 >60 Egfr 115.6 >60 2 Laboratory test finding 12/10/2016 C Reactive Protein < 1.00 mg/L < 5.00 3 Laboratory test finding 12/03/2016 C Reactive Protein 1.50 mg/L < 5.00 4 Liver Function Panel 12/03/2016 Direct Bilirubin 0.10 mg/dL 0.03-0.18 Indirect Bilirubin 0.4 mg/dL 0.3-1.0 Comp Metabolic Panel 12/03/2016 Sodium 137 mmol/L 133-145 Potassium 3.9 mmol/L 3.5-5.0 Chloride 104 mmol/L 101-111 Co2 Carbon Dioxide 28 mmol/L 22-32 Anion Gap 5 mmol/L 2-11 Glucose 100 mg/dL 70-100 Blood Urea Nitrogen 14 mg/dL 6-24 Creatinine 0.65 mg/dL 0.51-0.95 BUN/Creatinine Ratio 21.5 High 8-20 Calcium 9.1 mg/dL 8.6-10.3 Total Protein 7.0 g/dL 6.4-8.9 Albumin 3.7 g/dL 3.2-5.2 Globulin 3.3 g/dL 2-4 Albumin/Globulin Ratio 1.1 1-3 Total Bilirubin 0.50 mg/dL 0.2-1.0 Alkaline Phosphatase 83 U/L 34-104 Alt 24 U/L 7-52 Ast 33 U/L 13-39 Egfr Non- 91.5 >60 Egfr 117.6 >60 5 CBC Auto Diff 12/03/2016 White Blood Count 5.0 10^3/uL 3.5-10.8 Red Blood Count 4.83 10^6/uL 4.0-5.4 Hemoglobin 14.6 g/dL 12.0-16.0 Hematocrit 43 % 35-47 Mean Corpuscular Volume 88 fL 80-97 Mean Corpuscular Hemoglobin 30 pg 27-31 Mean Corpuscular HGB Conc 34 g/dL 31-36 Red Cell Distribution Width 15 % 10.5-15 Platelet Count 169 10^3/uL 150-450 Mean Platelet Volume 9 um3 7.4-10.4 Abs Neutrophils 2.9 10^3/uL 1.5-7.7 Abs Lymphocytes 1.1 10^3/uL 1.0-4.8 Abs Monocytes 0.8 10^3/uL 0-0.8 Abs Eosinophils 0.2 10^3/uL 0-0.6 Abs Basophils 0 10^3/uL 0-0.2 Abs Nucleated RBC 0 10^3/uL Granulocyte % 57.6 % 38-83 Lymphocyte % 21.6 % Low 25-47 Monocyte % 15.7 % High 1-9 Eosinophil % 4.3 % 0-6 Basophil % 0.8 % 0-2 Nucleated Red Blood Cells % 0 Comp Metabolic Panel 12/03/2016 Sodium 137 mmol/L 133-145 Potassium 3.9 mmol/L 3.5-5.0 Chloride 104 mmol/L 101-111 Co2 Carbon Dioxide 28 mmol/L 22-32 Anion Gap 5 mmol/L 2-11 Glucose 100 mg/dL 70-100 Blood Urea Nitrogen 14 mg/dL 6-24 Creatinine 0.65 mg/dL 0.51-0.95 BUN/Creatinine Ratio 21.5 High 8-20 Calcium 9.1 mg/dL 8.6-10.3 Total Protein 7.0 g/dL 6.4-8.9 Albumin 3.7 g/dL 3.2-5.2 Globulin 3.3 g/dL 2-4 Albumin/Globulin Ratio 1.1 1-3 Total Bilirubin 0.50 mg/dL 0.2-1.0 Alkaline Phosphatase 83 U/L 34-104 Alt 24 U/L 7-52 Ast 33 U/L 13-39 Egfr Non- 91.5 >60 Egfr 117.6 >60 6 Laboratory test finding 12/03/2016 C Reactive Protein 1.50 mg/L < 5.00 7 Liver Function Panel 12/03/2016 Direct Bilirubin 0.10 mg/dL 0.03-0.18 Indirect Bilirubin 0.4 mg/dL 0.3-1.0 CBC Auto Diff 11/27/2016 White Blood Count 5.6 10^3/uL 3.5-10.8 Red Blood Count 5.14 10^6/uL 4.0-5.4 Hemoglobin 15.2 g/dL 12.0-16.0 Hematocrit 45 % 35-47 Mean Corpuscular Volume 88 fL 80-97 Mean Corpuscular Hemoglobin 30 pg 27-31 Mean Corpuscular HGB Conc 34 g/dL 31-36 Red Cell Distribution Width 15 % 10.5-15 Platelet Count 278 10^3/uL 150-450 Mean Platelet Volume 9 um3 7.4-10.4 Abs Neutrophils 3.4 10^3/uL 1.5-7.7 Abs Lymphocytes 1.2 10^3/uL 1.0-4.8 Abs Monocytes 0.8 10^3/uL 0-0.8 Abs Eosinophils 0.1 10^3/uL 0-0.6 Abs Basophils 0.1 10^3/uL 0-0.2 Abs Nucleated RBC 0 10^3/uL Granulocyte % 60.7 % 38-83 Lymphocyte % 22.3 % Low 25-47 Monocyte % 14.1 % High 1-9 Eosinophil % 1.9 % 0-6 Basophil % 1.0 % 0-2 Nucleated Red Blood Cells % 0.1 Basic Metabolic Panel 11/26/2016 Sodium 136 mmol/L 133-145 Potassium 4.0 mmol/L 3.5-5.0 Chloride 104 mmol/L 101-111 Co2 Carbon Dioxide 25 mmol/L 22-32 Anion Gap 7 mmol/L 2-11 Glucose 115 mg/dL High 70-100 Blood Urea Nitrogen 13 mg/dL 6-24 Creatinine 0.76 mg/dL 0.51-0.95 BUN/Creatinine Ratio 17.1 8-20 Calcium 9.7 mg/dL 8.6-10.3 Egfr Non- 76.4 >60 Egfr 98.2 >60 8 Laboratory test finding 11/26/2016 C Reactive Protein < 1.00 mg/L < 5.00 9 Liver Function Panel 11/26/2016 Total Protein 7.6 g/dL 6.4-8.9 Albumin 4.1 g/dL 3.2-5.2 Globulin 3.5 g/dL 2-4 Albumin/Globulin Ratio 1.2 1-3 Total Bilirubin 0.50 mg/dL 0.2-1.0 Direct Bilirubin 0.10 mg/dL 0.03-0.18 Indirect Bilirubin 0.4 mg/dL 0.3-1.0 Alkaline Phosphatase 78 U/L 34-104 Alt 30 U/L 7-52 Ast 39 U/L 13-39 Laboratory test 11/07/2016 Non-Cover Cutter Machine Interface SEE RESULT BELOW 10, 11 finding Order Dic Screen 08/13/2016 Platelet Count 211 10^3/uL 150-450 Inr 0.89 0.89-1.11 Activated Partial Thrombo Time 29.4 seconds 26.0-36.3 Fibrinogen 343 mg/dL 110.8-404.3 D Dimer Quantitative 215 ng/mL Less Than 230 12 Schistocytes ABSENT Pathologist Review (SEE NOTE) 13 Comp Metabolic Panel 08/13/2016 Sodium 135 mmol/L 133-145 Potassium 4.3 mmol/L 3.5-5.0 Chloride 101 mmol/L 101-111 Co2 Carbon Dioxide 26 mmol/L 22-32 Anion Gap 8 mmol/L 2-11 Glucose 87 mg/dL 70-100 Blood Urea Nitrogen 19 mg/dL 6-24 Creatinine 0.55 mg/dL 0.51-0.95 BUN/Creatinine Ratio 34.5 High 8-20 Calcium 9.7 mg/dL 8.6-10.3 Total Protein 7.3 g/dL 6.4-8.9 Albumin 4.2 g/dL 3.2-5.2 Globulin 3.1 g/dL 2-4 Albumin/Globulin Ratio 1.4 1-3 Total Bilirubin 0.50 mg/dL 0.2-1.0 Alkaline Phosphatase 95 U/L 34-104 Alt 33 U/L 7-52 Ast 33 U/L 13-39 Egfr Non- 110.9 >60 Egfr 142.7 >60 14 Laboratory test finding 08/13/2016 C Reactive Protein 1.00 mg/L < 5.00 15 CBC No Diff 08/13/2016 White Blood Count 7.9 10^3/uL 3.5-10.8 Red Blood Count 4.96 10^6/uL 4.0-5.4 Hemoglobin 14.7 g/dL 12.0-16.0 Hematocrit 43 % 35-47 Mean Corpuscular Volume 87 fL 80-97 Mean Corpuscular Hemoglobin 30 pg 27-31 Mean Corpuscular HGB Conc 34 g/dL 31-36 Red Cell Distribution Width 13 % 10.5-15 Platelet Count 218 10^3/uL 150-450 Mean Platelet Volume 10 um3 7.4-10.4 Laboratory test finding 08/13/2016 Erythrocyte Sed Rate 16 mm/Hr 0-40 Urinalysis Profile 05/27/2016 Urine Color Yellow Urine Appearance Cloudy Urine Specific [place] 1.024 1.010-1.030 Urine pH 5.0 5-9 Urine Urobilinogen Negative Negative Urine Ketones Trace Negative Urine Protein Negative Negative Urine Leukocytes Negative Negative Urine Blood Negative Negative * * Negative 16 Urine Nitrite Negative Negative Urine Bilirubin Negative Negative Urine Glucose Negative Negative Laboratory test finding 05/27/2016 Myeloperoxidase AB <0.2 U 17 Proteinase 3 <0.2 U 18 Vitamin D 1,25 And Vitamin 04/24/2016 Vitamin D Total 25(Oh) 34.7 ng/mL 30-50 19 D,2 Vitamin D, 1,25 Dihydroxy 92 pg/mL 18-78 20 Vitamin B12 And Folate Serum 04/24/2016 Vitamin B12 461 pg/mL 180-914 21 Folic Acid (Folate) > 20.00 ng/mL >3.99 22 Laboratory test finding 04/24/2016 Rheumatoid Factor <15 IU/mL <15 23 Connective Tissue Panel 04/24/2016 Anti-Nuclear Antibody 2.2 U High 24 Cyclic Citrullinated Peptide <15.6 U 25 Interpretation See Comment 26 Laboratory test finding 04/24/2016 Erythrocyte Sed Rate 8 mm/Hr 0-30 27 C Reactive Protein < 1.00 mg/L < 5.00 28 Hla B27 04/24/2016 Hla B27 Positive 29 Hla B27 Interp See Comment 30 Anca AB Ser If 04/24/2016 C-Anca Negative Negative P-Anca Positive Negative 31 Laboratory test 04/24/2016 Aso (Antistreptolysin O) 400 IU/mL <200 Iu/mL 32 finding Titer IU/mL Angiotensin Converting Enzyme 27 U/L 8 - 53 33 1 Because ethnic data is not always readily available, this report includes an eGFR for both -Americans and non- Americans. The National Kidney Disease Education Program (NKDEP) does not endorse the use of the MDRD equation for patients that are not between the ages of 18 and 70, are , have extremes of body size, muscle mass, or nutritional status, or are non- or non-. According to the National Kidney Foundation, irrespective of diagnosis, the stage of the disease is based on the level of kidney function: Stage Description GFR(mL/min/1.73 m(2)) 1 Kidney damage with normal or decreased GFR 90 2 Kidney damage with mild decrease in GFR 60-89 3 Moderate decrease in GFR 30-59 4 Severe decrease in GFR 15-29 5 Kidney failure <15 (or dialysis) 2 Because ethnic data is not always readily available, this report includes an eGFR for both -Americans and non- Americans. The National Kidney Disease Education Program (NKDEP) does not endorse the use of the MDRD equation for patients that are not between the ages of 18 and 70, are , have extremes of body size, muscle mass, or nutritional status, or are non- or non-. According to the National Kidney Foundation, irrespective of diagnosis, the stage of the disease is based on the level of kidney function: Stage Description GFR(mL/min/1.73 m(2)) 1 Kidney damage with normal or decreased GFR 90 2 Kidney damage with mild decrease in GFR 60-89 3 Moderate decrease in GFR 30-59 4 Severe decrease in GFR 15-29 5 Kidney failure <15 (or dialysis) 3 Acute inflammation: >10.00 4 Acute inflammation: >10.00 5 Because ethnic data is not always readily available, this report includes an eGFR for both -Americans and non- Americans. The National Kidney Disease Education Program (NKDEP) does not endorse the use of the MDRD equation for patients that are not between the ages of 18 and 70, are , have extremes of body size, muscle mass, or nutritional status, or are non- or non-. According to the National Kidney Foundation, irrespective of diagnosis, the stage of the disease is based on the level of kidney function: Stage Description GFR(mL/min/1.73 m(2)) 1 Kidney damage with normal or decreased GFR 90 2 Kidney damage with mild decrease in GFR 60-89 3 Moderate decrease in GFR 30-59 4 Severe decrease in GFR 15-29 5 Kidney failure <15 (or dialysis) 6 Because ethnic data is not always readily available, this report includes an eGFR for both -Americans and non- Americans. The National Kidney Disease Education Program (NKDEP) does not endorse the use of the MDRD equation for patients that are not between the ages of 18 and 70, are , have extremes of body size, muscle mass, or nutritional status, or are non- or non-. According to the National Kidney Foundation, irrespective of diagnosis, the stage of the disease is based on the level of kidney function: Stage Description GFR(mL/min/1.73 m(2)) 1 Kidney damage with normal or decreased GFR 90 2 Kidney damage with mild decrease in GFR 60-89 3 Moderate decrease in GFR 30-59 4 Severe decrease in GFR 15-29 5 Kidney failure <15 (or dialysis) 7 Acute inflammation: >10.00 8 Because ethnic data is not always readily available, this report includes an eGFR for both -Americans and non- Americans. The National Kidney Disease Education Program (NKDEP) does not endorse the use of the MDRD equation for patients that are not between the ages of 18 and 70, are , have extremes of body size, muscle mass, or nutritional status, or are non- or non-. According to the National Kidney Foundation, irrespective of diagnosis, the stage of the disease is based on the level of kidney function: Stage Description GFR(mL/min/1.73 m(2)) 1 Kidney damage with normal or decreased GFR 90 2 Kidney damage with mild decrease in GFR 60-89 3 Moderate decrease in GFR 30-59 4 Severe decrease in GFR 15-29 5 Kidney failure <15 (or dialysis) 9 Acute inflammation: >10.00 10 FNA OF LIVER 11 SEE RESULT BELOW Name: JANETT VIGIL : [address]: Nicolas Shelby MD Acct: [id number] Unit: [id number] AGE: 66 Location: [place] [address] Re11/06/16 SEX: F Status: ADM IN SPEC: [id number] JENN: 11/07/16-1455 [facility] DR: Nicolas Shelby MD REQ: [id number] RECD: 11/07/16-1520 STATUS: LALI ABRAHAM DR: James Mcintyre MD _ ORDERED: FNA-IMG GUID BX, CY ADEQ-ADDL P, LEVEL 4, CYTO ADEQ-1ST P FINAL DIAGNOSIS Liver, ultrasound-guided fine needle aspiration: -- Abscess. -- Negative for malignant cells. COMMENT: A cell block was prepared in the evaluation of this specimen. Smears and cell block reveal similar findings. Microbiology culture studies are pending and will be reported separately. 1. LIVER - US GUIDED LIVER FINE NEEDLE ASPIRATION CLINICAL HISTORY Liver mass vs abscess vs tumor. GROSS DESCRIPTION Ultrasound guided, fine needle aspiration x 3 passes, 8 Alcohol fixed slide(s ), needle rinse in formalin for cell block and microbiology studies. Signed (signature on file) Maria C Salcido MD 03/26 1202 END OF REPORT * ML=Testing performed at Main Lab DEPARTMENT OF PATHOLOGY, [address] [place] [address] Jakob Perez M.D. Director [facility] # [id number] 12 Please note: The following may produce a false positive D Dimer test: - Rheumatoid factor greater than 60 IU/ml - Plasma hemoglobin greater than 0.05 gm/dl - Bilirubin greater than 50 mg/dl - Lipids greater than 1000 mg/dl - FDP greater than 20 ug/ml 13 No evidence of disseminated intravascular coagulation identified. Reviewed by Dr. Perez 14 Because ethnic data is not always readily available, this report includes an eGFR for both -Americans and non- Americans. The National Kidney Disease Education Program (NKDEP) does not endorse the use of the MDRD equation for patients that are not between the ages of 18 and 70, are , have extremes of body size, muscle mass, or nutritional status, or are non- or non-. According to the National Kidney Foundation, irrespective of diagnosis, the stage of the disease is based on the level of kidney function: Stage Description GFR(mL/min/1.73 m(2)) 1 Kidney damage with normal or decreased GFR 90 2 Kidney damage with mild decrease in GFR 60-89 3 Moderate decrease in GFR 30-59 4 Severe decrease in GFR 15-29 5 Kidney failure <15 (or dialysis) 15 Acute inflammation: >10.00 16 *Ascorbic acid is present which may interfere with detection of blood. 17 REFERENCE VALUE <0.4 (Negative) Test Performed by: [place] [address] 18 REFERENCE VALUE <0.4 (Negative) Test Performed by: [facility] [place] [address] 19 Please check with upcoming labs 20 ADDITIONAL INFORMATION This test was developed and its performance characteristics determined by [facility] in a manner consistent with CLIA requirements. This test has not been cleared or approved by the U.S. Food and Drug Administration. Test Performed by: [facility] [place] [address] Cold Rolling Machine Setter: Conner Jewell II, M.D., Ph.D. 21 Normal Range 180 to 914 Indeterminate Range 145 to 180 Deficient Range <145 22 Please check with upcoming labs 23 Test Performed by: [place] [address] Cold Rolling Machine Setter: Conner Jewell II, M.D., Ph.D. 24 Interpretation: Weak Positive (1.1-2.9) REFERENCE VALUE <=1.0 (Negative) 25 REFERENCE VALUE <20.0 (Negative) 26 Tests for antibodies to dsDNA and CITLALLI antigens are not performed automatically unless the DONA result is > or= 3.0 U. Studies performed at [facility] indicate that positive DONA results <3.0 U are rarely accompanied by positive second order tests. Test Performed by: [place] [address] Cold Rolling Machine Setter: Conner Jewell II, M.D., Ph.D. 27 Please check with upcoming labs 28 Acute inflammation: >10.00 29 REFERENCE VALUE Not Applicable 30 HLA-B27 antigen was detected. Approximately 8% of the normal population carries the HLA-B27 antigen. HLA-B27 is present in approximately 89% of patients with ankylosing spondylitis, 79% of patients with Lebron's syndrome and 42% of patients with juvenile rheumatoid arthritis. However, lacking other data, it is not diagnostic for these disorders. This test does not differentiate B27 alleles. i.e. B*27:05, B*27:06, etc. ADDITIONAL INFORMATION Method: Flow Cytometry Performing Laboratory CLIA# [id number] Test Performed by: [address] [address] Cold Rolling Machine Setter: Conner Jewell II, M.D., Ph.D. 31 Positive for pANCA pattern by immunofluorescence. Suggest further testing for anti-myeloperoxidase (anti-MPO) antibodies, if clinically indicated. ADDITIONAL INFORMATION This test was developed and its performance characteristics determined by [facility] in a manner consistent with CLIA requirements. This test has not been cleared or approved by the U.S. Food and Drug Administration. Test Performed by: [address] [address] Cold Rolling Machine Setter: Conner Jewell II, M.D., Ph.D. 32 Normal values may vary with age, season and geographic area. Titers above upper limits may be indicative of infection, however only a two dilution rise in titer is required to be considered significant. ASO titer will usually rise above upper limits within one week of exposure, increase to peak levels at 3-5 weeks and return to baseline level at 6-12 twelve months. 33 Test Performed by: [address] [address] Cold Rolling Machine Setter: Conner Jewell II, M.D., Ph.D. Procedures Date CPT Code Description Status 11/26/2017 08913 EKG Tracing & Interpretation Completed 10/17/2017 36093 Inj/Aspir Major JT Or Bursa W/ US Completed 06/13/2017 57655 EKG Tracing & Interpretation Completed 03/28/2017 21016 Cardioversion Completed 02/14/2017 52253 Moderate Sedation Services; Same Phys Intl 15 Mins; PT Completed >=5 Years 02/14/2017 39416 Color Flow Doppler/Interp & Reprt Completed 02/14/2017 96886 Pulse Wave/Continuous-Interp.RPT Completed 02/14/2017 24528 Echocardiography, Transesophageal, Real Time W/Image 2D Completed W/W/O M-M 02/12/2017 21002 Treadmill Interp/Report Only Completed 02/12/2017 86782 Stress Test Supervsn W/Out I/R Completed 02/05/2017 16340 Holter Monitor Review (24 hr)dr review & interp only Completed 02/03/2017 70229 ECG Monitor/Recording W/Visual Superimposition Scanning Completed 01/10/2017 96234 EKG Tracing & Interpretation Completed 11/09/2016 28811 EKG, Interpretation Only Completed 11/08/2016 Colonoscopy Completed 11/07/2016 10398 ECHO Transthorasic Realtime 2D W Doppler & Color Flow Completed Hosp 11/06/2016 61348 EKG, Interpretation Only Completed 09/12/2016 45362 Inject/Drain Joint/Bursa Small W/O US Completed 01/02/2015 72545 ECHO Transthorasic Realtime 2D W Doppler & Color Flow Completed Hosp 12/11/2014 36449 ECHO Transthorasic Realtime 2D W Doppler & Color Flow Completed Hosp 12/11/2014 14719 Insert Non-Tunneled Venous Catether Completed 12/10/2014 82513 EKG, Interpretation Only Completed 12/10/2014 41115 EKG, Interpretation Only Completed 12/09/2014 14464 Insert Non-Tunneled Venous Catether Completed 07/06/2013 Colonoscopy Completed 07/17/2010 32546 EKG, Interpretation Only Completed 07/16/2010 39331 EKG, Interpretation Only Completed 04/24/2005 39439 Color Doppler Completed 04/24/2005 97375 Pulse Doppler & Continuous Wave Completed 04/24/2005 26833 Echocardiogram Completed 04/19/2005 38646 ECHO/Stress Completed 04/19/2005 55102 Treadmill Interp/Report Only Completed 04/19/2005 36685 Stress Test Supervsn W/Out I/R Completed 02/23/2002 Colonoscopy Completed Encounters Type Date Location Provider CPT E/M Dx Office Visit 11/27/2017 [facility] [place] [address] K51.30 9:15a I48.92 Z79.899 E66.9 Office Visit 11/26/2017 3:00p [facility] Jaz Sandoval, 40414 I10 MSarah E66.9 Z01.810 I48.91 I71.9 Office Visit 11/25/2017 9:00a [facility] John Ramirez, 35367 M17.11 Of [facility] Savi M65.311 M43.16 R20.8 Office Visit 11/24/2017 3:15p [facility] Seema Dubois M.D. 61441 M25.561 [facility] M25.461 M17.11 Office Visit 11/14/2017 8:45a [facility] [place] [address] M17.11 C.M[facility]A. Office Visit 10/17/2017 9:00a [facility] [place] [address] M17.11 C.M[facility]A. Office Visit 06/13/2017 4:00p [facility] [address] I48.91 Savi Sandoval I34.0 I10 R94.31 Office Visit 02/24/2017 1:00p [facility] SHira Campuzano, 33510 I48.91 Savi I34.0 I10 Office Visit 02/24/2017 9:40a [facility] John Ramirez, 37520 M65.311 Of Vickie Hou M43.16 Office Visit 01/10/2017 9:00a [facility] SHira Sandoval, 385[address] R94.31 MHiraDHira I10 I48.91 E66.9 Office Visit 12/17/2016 10:30a [facility] Collin Almonte, [address] K75.0 Infectious Diseases M.DHira Z79.2 Office Visit 11/26/2016 9:50a [facility] Collin Almonte, 91208 K75.0 Infectious Diseases M.DHira D89.9 Z79.2 R63.0 Office Visit 11/07/2016 3:40p [facility] Collin Almonte, 18061 R16.0 Infectious Diseases M.DHira D72.829 R50.9 K51.90 Office Visit 11/06/2016 8:31a [facility], [place] [address] D89.9 Hospitalists K75.0 K51.30 A41.9 Office Visit 09/12/2016 8:00a [facility] John Ramirez, 30487 M65.311 Of Vickie Hou M43.16 M06.4 K51.80 Office Visit 05/23/2016 11:00a [facility] Of John Ramirez, 62073 R76.0 Vickie Hou K51.90 M43.16 Office Visit 04/24/2016 11:00a [facility] Of John Ramirez, 25599 M06.4 Vickie Hou K51.90 M54.5 R20.8 Office Visit 12/30/2014 10:47a [facility] Marbin Marion M.D. 90093 N30.01 Hospitalists K51.80 A41.9 I10 Office Visit 12/11/2014 1:39p [facility] Emory Mcdowell D.O. 76680 R78.81 Hospitalists A41.9 K52.9 N17.0 Office Visit 12/10/2014 1:38p [facility] Rene Donahue M.D. 38350 A09 Hospitalists A41.9 N17.0 I21.4 Office Visit 12/09/2014 1:36p [facility] Rene Donahue M.D. 43597 A09 Hospitalists A41.9 N17.0 I21.4 Office Visit 04/19/2005 1:00p [facility] Qutayb Pricilla Sandoval, 06033 786.50 M.Shayy 786.05 719.7 Plan of Care Future Appointment(s):03/24/2018 1:40 pm - John Ramirez M.D. at [facility]01/06/2018 1:30 pm - Kieran William PA-C at [facility]01/06/2018 1:30 pm - MARIYA Ruth at [facility]05/28/2018 9:00 am - Emory Mehta MD at [facility] Qakdgsjjjnnbyswz71/18/ 2019 11:00 am - John Ramirez M.D. at [facility]01/06/2018 1 :30 pm - Seema Dubois M.D. at [facility]12/24/2017 10:30 am - Seema Dubois M.D. at [facility]12/22/2017 - John Ramirez M.D.M06.4 Inflammatory polyarthropathyFollow up:Follow up in 3 months or sooner if ppqzoeU58.11 Unil primary osteoarth of first carpometacarp joint, r handM18.12 Unil primary osteoarth of first carpometacarp joint, l handK51.90 Ulcerative colitis, unspecified, without complications
--- OUTSIDE RECORDS SUMMARY | 2018-01-06 09:31 | XMS REPORT ---
:1950 External Reference #:[id number] Author Organization [employer] Address [address] [place] [address] [place] [address] Phone [phone] Care Team Providers Name Role Phone Nicolas Shelby MD Primary Care Physician Unavailable Payers Type Date Identification Numbers Payment Provider Subscriber Medicare Primary Effective: Policy Number: Medicare Janett Love 2016 [id number] Christian PayID: [id number] [address] [place] [address] Medigap Part B Policy Number: [id number] [employer] Dedrick Vigil PayID: [id number] [address] [address] [place] [address] Problems Date Description Provider Status Onset: 10/17/2017 Localized, primary osteoarthritis Mark Rodriguez MD Active Onset: 07/06/2013 Chronic ulcerative rectosigmoiditis Emory Mehta MD Active Note: seen by Dr Jacky foster [facility] November 2015 Onset: 11/28/1987 Obesity Emory Mehta [...] Status Lives With Family 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 11/15 day as needed /2017 for pain. Prednisone Hx Tablets 20mg as directed Unknown / - 05/23 Remicade Hx Solution 100mg every 8 weeks Unknown / Rec - 12/09 Amlodipine Hx Tablets 5mg 1 by mouth Unknown Besylate every day - 11/25 1500MG Hx Chewtabs 500-10-25 1 by mouth Unknown / 0mg-mg-Un daily - it 01/10 Aleve Hx Capsules 220mg 2 by mouth Unknown /0000 twice a day - as needed 09/12 Metronidazole Hx Tablets 500mg take 1 tablet Unknown by mouth - three times a 01/09 day (per /2016 decreased to twice daily as of 11/26/16) Potassium Hx Tablets ER 20Meq take 1 tablet Unknown Chloride Samantha by mouth ER - twice a day 01/09 Medications Administered in Office Medication Date Status Form Strength Qnty SIG Indications Ordering Provider No Injection 12/22/ Administered Injection John Ramirez M.D. No Injection 12/22/ Administered Injection John Ramirez M.D. Triamcinolone 12/22/ Administered Injection John (Kenalog) 2017 Savi Ramirez No Injection 10/17/ Administered Injection Zaneb 2017 MD Michael Triamcinolone 10/17/ Administered Injection Zaneb (Kenalog) 2017 MD Michael Triamcinolone 09/12/ Administered Injection John (Kenalog) 2016 Savi Ramirez Vital Signs Date Vital Result Comment 12/24/2017 Height 66 inches 5'6" Weight 241.00 lb Heart Rate 76 /min BP Systolic 138 mmHg BP Diastolic 70 mmHg Respiratory Rate 18 /min Body Temperature 98.9 F Pain Level 6 BMI (Body Mass Index) 38.9 kg/m2 12/22/2017 Height 66 inches 5'6" Heart Rate [...] Ast 39 U/L 13-39 Laboratory test 11/07/2016 Non-Tobacco [employer] SEE RESULT BELOW 10, 11 finding [...] Color Yellow Urine Appearance Cloudy Urine Specific [place] 1.024 1.010-1.030 Urine pH 5.0 5-9 Urine [...] [address]: Nicolas Shelby MD Acct: [id number] Unit: [id number] AGE: 66 Location: [place] [address] Re11/06/16 SEX: F Status: ADM IN SPEC: [id number] JENN: 11/07/16-1455 [facility] DR: Nicolas Shelby MD REQ: [id number] RECD: 11/07/16152 STATUS: LALI ABRAHAM DR: James Mcintyre MD [...] performed at Main Lab DEPARTMENT OF PATHOLOGY, [address] [place] [address] Jakob Perez M.D. Director [facility] # [id number] 12 Please note: The following may produce [...] REFERENCE VALUE <0.4 (Negative) Test Performed by: [address] [address] 18 REFERENCE VALUE <0.4 (Negative) Test Performed by: [address] [address] 19 Please check with upcoming labs 20 ADDITIONAL INFORMATION This test was developed and its performance characteristics determined by [facility] in a manner consistent with CLIA requirements. This test has not been cleared or approved by the U.S. Food and Drug Administration. Test Performed by: [place] [address] Bulk Station Operator: Conner Jewell II, M.D., Ph.D. 21 Normal Range 180 to 914 Indeterminate Range 145 to 180 Deficient Range <145 22 Please check with upcoming labs 23 Test Performed by: [facility] [place] [address] Bulk Station Operator: Conner Jewell II, M.D., Ph.D. 24 Interpretation: Weak Positive (1.1-2.9) REFERENCE VALUE <=1.0 (Negative) 25 REFERENCE VALUE <20.0 (Negative) 26 Tests for antibodies to dsDNA and CITLALLI antigens are not performed automatically unless the DONA result is > or= 3.0 U. Studies performed at [facility] indicate that positive DONA results <3.0 U are rarely accompanied by positive second order tests. Test Performed by: [facility] [place] [address] Bulk Station Operator: Conner Jewell II, M.D., Ph.D. 27 Please [...] INFORMATION Method: Flow Cytometry Performing Laboratory CLIA# [id number] Test Performed by: [place] [address] Bulk Station Operator: Conner Jewell II, M.D., Ph.D. 31 Positive for pANCA pattern by immunofluorescence. Suggest further testing for anti-myeloperoxidase (anti-MPO) antibodies, if clinically indicated. ADDITIONAL INFORMATION This test was developed and its performance characteristics determined by [facility] in a manner consistent with CLIA requirements. This test has not been cleared or approved by the U.S. Food and Drug Administration. Test Performed by: [place] [address] Bulk Station Operator: Conner Jewell II, M.D., Ph.D. 32 Normal [...] 6-12 twelve months. 33 Test Performed by: [place] [address] Bulk Station Operator: Conner Jewell II, M.D., Ph.D. Procedures Date CPT Code Description Status 11/26/2017 31616 EKG Tracing & Interpretation Completed 10/17/201785886 Inj/Aspir Major JT Or Bursa W/ US Completed 06/13/2017 08492 EKG Tracing & Interpretation Completed 03/28/2017 64517 Cardioversion Completed 02/14/2017 64139 Moderate Sedation Services; Same Phys Intl 15 Mins; PT Completed >=5 Years 02/14/2017 36391 Color Flow Doppler/Interp & Reprt Completed 02/14/2017 41593 Pulse Wave/Continuous-Interp.RPT Completed 02/14/2017 53060 Echocardiography, Transesophageal, Real Time W/Image 2D Completed W/W/O M-M 02/12/2017 81657 Treadmill Interp/Report Only Completed 02/12/2017 84366 Stress Test Supervsn W/Out I/R Completed 02/05/2017 80344 Holter Monitor Review (24 hr)dr review & interp only Completed 02/03/2017 89660 ECG Monitor/Recording W/Visual Superimposition Scanning Completed 01/10/2017 32172 EKG Tracing & Interpretation Completed 11/09/2016 63582 EKG, Interpretation Only Completed 11/08/2016 Colonoscopy Completed 11/07/2016 20987 ECHO Transthorasic Realtime 2D W Doppler & Color Flow Completed Hosp 11/06/2016 86244 EKG, Interpretation Only Completed 09/12/2016 29596 Inject/Drain Joint/Bursa Small W/O US Completed 01/02/2015 58182 ECHO Transthorasic Realtime 2D W Doppler & Color Flow Completed Hosp 12/11/2014 91615 ECHO Transthorasic Realtime 2D W Doppler & Color Flow Completed Hosp 12/11/2014 48134 Insert Non-Tunneled Venous Catether Completed 12/10/2014 80070 EKG, Interpretation Only Completed 12/10/2014 03411 EKG, Interpretation Only Completed 12/09/2014 72899 Insert Non-Tunneled Venous Catether Completed 07/06/2013 Colonoscopy Completed 07/17/2010 45190 EKG, Interpretation Only Completed 07/16/2010 17195 EKG, Interpretation Only Completed 04/24/2005 03097 Color Doppler Completed 04/24/2005 08862 Pulse Doppler & Continuous Wave Completed 04/24/2005 69063 Echocardiogram Completed 04/19/2005 00093 ECHO/Stress Completed 04/19/2005 40678 Treadmill Interp/Report Only Completed 04/19/2005 22940 Stress Test Supervsn W/Out I/R Completed 02/23/2002 Colonoscopy Completed Encounters Type Date Location Provider CPT E/M Dx Office Visit 11/27/2017 [facility] [address] K51.30 9:15a I48.92 Z79.899 E66.9 Office Visit 11/26/2017 3:00p [facility] Jaz Sandoval [address]105 I10 MSarah E66.9 Z01.810 I48.91 I71.9 Office Visit 11/25/2017 9:00a [facility] Services John Ramirez, 74401 M17.11 Of Vickie Hou M65.311 M43.16 R20.8 Office Visit 11/24/2017 3:15p [facility] Seema Dubois M.D. 61432 M25.561 C.M.AHira M25.461 M17.11 Office Visit 11/14/2017 8:45a [facility] [address] M17.11 C.M.A. Office Visit 10/17/2017 9:00a [facility] [place] [address] M17.11 C.M.A. Office Visit 06/13/2017 4:00p [facility] Qutaybeh SHira 11466 I48.91 Savi Sandoval I34.0 I10 R94.31 Office Visit 02/24/2017 1:00p [facility] Melecioybyaima Sandoval, 88192 I48.91 Savi I34.0 I10 Office Visit 02/24/2017 9:40a [facility] John Ramirez, 19632 M65.311 Of Vickie Hou M43.16 Office Visit 01/10/2017 9:00a [facility] Маринаtaybeh SHira Sandoval, 10147 R94.31 M.DHira I10 I48.91 E66.9 Office Visit 12/17/2016 10:30a [facility] Collin Almonte, 43117 K75.0 Infectious Diseases M.DHira Z79.2 Office Visit 11/26/2016 9:50a [facility] Radha Almonte, 14261 K75.0 Infectious Diseases M.DHira D89.9 Z79.2 R63.0 Office Visit 11/07/2016 3:40p [facility] Radha Almonte, 40109 R16.0 Infectious Diseases M.DHira D72.829 R50.9 K51.90 Office Visit 11/06/2016 8:31a [facility], [place] [address] D89.9 Hospitalists K75.0 K51.30 A41.9 Office Visit 09/12/2016 8:00a [facility] John Ramirez 119[address] M65.311 Of [facility] M.D. M43.16 M06.4 K51.80 Office Visit 05/23/2016 11:00a [facility] Of John Ramirez, 79401 R76.0 [facility] M.D. K51.90 M43.16 Office Visit 04/24/2016 11:00a [facility] Of John Ramirez, 47176 M06.4 [facility] M.D. K51.90 M54.5 R20.8 Office Visit 12/30/2014 10:47a [facility], Marbin Marion M.D. 12902 N30.01 Hospitalists K51.80 A41.9 I10 Office Visit 12/11/2014 1:39p [facility], Emory Mcdowell D.O. 35585 R78.81 Hospitalists A41.9 K52.9 N17.0 Office Visit 12/10/2014 1:38p [facility], Rene Donahue M.D. 39905 A09 Hospitalists A41.9 N17.0 I21.4 Office Visit 12/09/2014 1:36p [facility], Reen Donahue M.D. 75544 A09 Hospitalists A41.9 N17.0 I21.4 Office Visit 04/19/2005 1:00p [facility] Pricilla Sandoval, [address] 786.50 M.DHira 786.05 719.7 Plan of Care Future Appointment(s):01/16/2018 10:30 am - Seema Dubois M.D. at [facility]03/24/2018 1:40 pm - John Ramirez M.D. at [facility] Of [facility]01/06/2018 1:30 pm - Kieran William PA-C at [facility]01/06/2018 1:30 pm - MARIYA Ruth at [facility]05/28/2018 9:00 am - Emory Mehta MD at [facility] Ixusqaesqqozlgzn15/18/ 2019 11:00 am - John Ramirez M.D. at [facility] Of [facility]01/06/2018 1 :30 pm - Seema Dubois M.D. at [facility] Of [facility]12/24/2017 - Seema Dubois M.D.M25.561 Pain in right kneeFollow up:Follow up: 2 weeks after hggttpyP91.0 Bilateral primary osteoarthritis of knee
[2018-01-06] MEDS ORDERED: ROPIVACAINE 5 MG/ML 30 ML BTL (0.5%) ONE (10:04)
[2018-01-06] MEDS ORDERED: Lidocaine 1%* 5 ML VIAL ONE (10:04)
[2018-01-06] MEDS ORDERED: Rocuronium* 10 MG/ML VIAL ONE (10:50)
[2018-01-06] MEDS ORDERED: HYDROmorphone INJ1* 1 MG/ML SYRINGE ONE ×2 (11:22→14:57)
[2018-01-06] MEDS ORDERED: Lidocaine 2% PF * 5 ML VIAL ONE (11:46)
[2018-01-06] MEDS ORDERED: Bupivacaine-MPF SPINAL* 7.5 MG/ML - 2ML AMP ONE (11:46)
[2018-01-06] MEDS ORDERED: EPHEDrine (Pressors)* 50 MG/ML VIAL ONE (11:46)
[2018-01-06] MEDS ORDERED: Lidocaine 2% PF* 10 ML AMP ONE (11:46)
[2018-01-06] MEDS ORDERED: Dexamethasone IV* 4 MG/ML 1 ML (4 MG) ONE (11:47)
[2018-01-06] MEDS ORDERED: Phenylephrine INJ* 10 MG/ML 1 ML VIAL (10 MG) ONE (11:47)
[2018-01-06] MEDS ORDERED: Propofol* 10 MG/ML 20 ML BTL IV PUSH ONE (11:47)
[2018-01-06] MEDS ORDERED: Metoclopramide IV* 5 MG/ML 2 ML VIAL ONE (11:47)
[2018-01-06] MEDS ORDERED: PROCHLORPERAZINE INJ 5 MG/ML 2 ML VIAL IV PRN (11:51)
[2018-01-06] MEDS ORDERED: HYDROmorphone INJ1* 1 MG/ML SYRINGE IV PRN (11:51)
[2018-01-06] MEDS ORDERED: HYDROcodone/ACETAMIN 5-325 MG* 1 TAB PO PRN (11:51)
[2018-01-06] MEDS ORDERED: Ketorolac INJ* 30 MG/ML 1 ML VIAL IV PRN (11:51)
[2018-01-06] MEDS ORDERED: Naloxone* 0.4 MG/ML 1 ML VIAL IV PRN (11:51)
[2018-01-06] MEDS ORDERED: DiMENhydriNATE IV* 50 MG/ML VIAL IV PUSH PRN (11:51)
[2018-01-06] MEDS ORDERED: Acetaminophen IV 1GM/100ML * 1,000 MG/100 ML VIAL IVPB ONE (11:51)
[2018-01-06] MEDS ORDERED: Scopolamine 1.5 mg* PATCH ONE (11:54)
[2018-01-06] MEDS ORDERED: Ondansetron INJ* 2 MG/ML VIAL ONE (12:50)
[2018-01-06] MEDS ORDERED: Desflurane* 240 ML INH ONE (12:57)
[2018-01-06] MEDS ORDERED: Morphine VIAL* 4 MG/ML VIAL (1 ml vial) IV PRN (13:21)
[2018-01-06] MEDS ORDERED: diPHENhydraMINE IV* 50 MG/ML 1 ml VIAL (BENADRYL) IV PRN (13:21)
[2018-01-06] MEDS ORDERED: Magnesium Hydroxide LIQ* 30 ML UDC PO PRN (13:21)
[2018-01-06] MEDS ORDERED: Cyclobenzaprine TAB* 10 MG PO PRN (13:21)
[2018-01-06] MEDS ORDERED: Bisacodyl SUPP* 10 MG SUPP PR PRN (13:21)
[2018-01-06] MEDS ORDERED: oxyCODONE/Acetamin 5/325 MG* TAB PO PRN (13:21)
[2018-01-06] MEDS ORDERED: Acetaminophen TAB* 325 MG PO PRN (13:21)
[2018-01-06] MEDS ORDERED: Ondansetron INJ* 2 MG/ML VIAL IV PRN (13:21)
[2018-01-06] MEDS ORDERED: traZODone TAB* 50 MG TAB PO PRN (13:25)
[2018-01-06] MEDS ORDERED: Albuterol HFA INHALER* 8 gm MDI INH PRN (13:25)
[2018-01-06] MEDS ORDERED: Ketorolac INJ* 30 MG/ML 1 ML VIAL ONE (14:03)
--- NOTE | 2018-01-06 14:04 | RAD ---
HISTORY: S/P RTKA COMPARISONS: October 17, 2017 VIEWS: 2 , Frontal and lateral views of the right knee FINDINGS: BONE DENSITY: Normal. BONES: The patient is status post right knee arthroplasty. There is no hardware failure or osteolysis. JOINTS: The patient is status post right knee arthroplasty. ALIGNMENT: There is no dislocation. SOFT TISSUES: Unremarkable. OTHER FINDINGS: None. IMPRESSION: STATUS POST RIGHT KNEE ARTHROPLASTY
[2018-01-06] MEDS: fentaNYL* 50 MCG/ML 2 ML VIAL (100 MCG VIAL) IV PRN ×3 (14:07→14:48)
[2018-01-06] MEDS ORDERED: Acetaminophen IV 1GM/100ML * 100 ML ONE (14:11)
[2018-01-06] MEDS: oxyCODONE/Acetamin 5/325 MG* TAB PO PRN ×2 (17:21→21:34)
--- NOTE | 2018-01-06 17:40 | PN ---
Progress Note - Progress Note Date of Service: 01/06/18 SOAP: Pt seen this evening. Sitting in bed. Pain is well controlled. She is a pt of Dr. Jamil and we have attempted to get in contact with him. We will continue to attempt to let him know tonight. She is able to df/pf. and dressing is c/d/i We will continue with clemente starting tomorrow.
[2018-01-06] MEDS: Clindamycin 600 MG IVPREMIX(* 600 MG/50 ML SDV IV SCH (18:04)
[2018-01-06] MEDS: oxyCODONE TAB* 5 MG TAB PO PRN ×2 (19:32→23:28)
[2018-01-06] MEDS: Magnesium Hydroxide LIQ* 30 ML UDC PO SCH (19:36)
[2018-01-06] MEDS: Docusate CAP* 100 MG PO SCH (19:36)
[2018-01-07] MEDS: oxyCODONE/Acetamin 5/325 MG* TAB PO PRN ×4 (01:52→18:24)
[2018-01-07] MEDS: Clindamycin 600 MG IVPREMIX(* 600 MG/50 ML SDV IV SCH ×2 (01:54→09:45)
[2018-01-07] MEDS: oxyCODONE TAB* 5 MG TAB PO PRN ×4 (04:04→21:16)
--- NOTE | 2018-01-07 04:33 | OP ---
OPERATIVE NOTE: DATE OF OPERATION: 01/06/18 DATE OF : 52 ATTENDING SURGEON: Seema Dubois MD CERTIFICATION ENGINEER: NORY Huizar Mr. William did help throughout the procedure with preparation of the leg, wound retraction, manipulat ion of the knee, and wound closure. ANESTHESIOLOGIST: Dr. Street. ANESTHESIA: Spinal. PRE-OP DIAGNOSIS: Severe end-stage degenerative osteoarthritis of the right knee joint. POST-OP DIAGNOSIS: Severe end-stage degenerative osteoarthritis of the right knee joint. OPERATIVE PROCEDURE: Right total knee arthroplasty. TOURNIQUET TIME: 49 minutes. COMPLICATIONS: None. SPECIMEN: Bone and cartilage from the right knee joint sent to pathology. HARDWARE USED: This is [employer] cemented total knee arthroplasty hardware. Two packages of S implex bone cement. For the femur, a right narrow size 5 legion posterior stabilized femoral compone nt. For the tibia, a camilla II size 5 right tibial base plate. For the insert, a 9-mm posterior st abilized articular insert, size 5/6. For the patella, a 32-mm 3-peg all poly patella with 7.5 thickn ess. BRIEF HISTORY/INDICATION: Ms. Gonzales is a 67-year-old female with years of increasingly severe rig ht knee pain. She failed conservative treatment with anti- inflammatories, pain medication, intraart icular injections, and physical therapy. Due to continued pain and decreased quality of life, she maura cted to undergo a right total knee arthroplasty. Informed consent was obtained from the patient. Sh e understood the risks of surgery included, but were not limited to bleeding, infection, damage to ne arby structures, continued pain, need for further surgery, intraoperative fracture, nerve palsy, hard oscar failure or loosening, knee stiffness, loss of motion, stroke, heart attack, blood clot, and deat h. She wished to proceed. Radiographs showed [id number] arthritis. INTRAOPERATIVE FINDINGS: Intraoperative, the patient had complete loss of cartilage in the medial an d patellofemoral compartments. She had extensive osteophyte formation. DESCRIPTION OF PROCEDURE: Ms. Gonzales was identified in the preanesthesia unit. Her right lower ext remity was marked as the correct operative side. Informed consent was signed and placed in the chart . The patient was taken to the operating room and placed under spinal anesthesia. A Wilburn catheter was placed. Tourniquet was placed on the right thigh. Right lower extremity was prepped and draped in the usual sterile fashion. Preop time-out was made to correctly identify the patient, side, and s ite. Appropriate perioperative antibiotics were given within 1 hour of incision. Tourniquet was inflated and a total tourniquet time for this procedure was 49 minutes. A midline inc ision was made with a 10-blade. A new 10-blade was used to make a standard medial parapatellar arthr otomy. Patella was subluxed laterally. Electrocautery was used to subperiosteally elevate the soft t issue off the superomedial tibia to the mid sagittal plane. The knee was flexed up. The anterior ho rn of the lateral meniscus and ACL were sharply released. A drill was used to enter the distal femur . Intramedullary distal femoral cutting guide was pinned on the distal femur. Oscillating saw was u sed to make the distal femoral cut. The distal femur was sized to a size 5. The external rotation g uide was placed on the distal femur, was sized to size 5. Size 5 multi-cutting jig was pinned on the distal femur. Oscillating saw was used to make the appropriate 4 chamfer cuts. The PCL was completely released. The tibia was subluxed anteriorly. The extramedullary tibial cutti ng guide was pinned on the proximal tibia. Oscillating saw was used to make the proximal tibial cut perpendicular to the mechanical axis of the tibia. The bone was carefully removed. The knee was bro ught out into full extension. A spacer block had good fit with the knee in full extension. Medial a nd lateral ligaments were well balanced. Flexion and extension gaps were well balanced. The knee wa s flexed up. Lamina child care attendant was placed both medially and laterally. Any remaining meniscus was sha rpy released using electrocautery. Curved osteotome was used to remove any posterior osteophytes. Ti bial tray and drop ye were placed and once again confirmed a satisfactory tibial cut. A size 5 right narrow femoral trial was impacted on to the distal femur and had excellent fit. The b ox for the posterior stabilized implant was prepared using a reamer and box cut osteotome. A size 5 tibial tray trial with a 9-mm insert trial was placed and the knee was taken through range of motion. The knee had full extension to 130 degrees of flexion. There was satisfactory patellofemoral track ing. The patella was everted. 7 mm of patellar bone and cartilage was carefully removed using an oscillat ing saw. Patella was sized to a size 32. Three-peg holes were drilled through the size 32 guide. A 32 trial patella with 7.5 thickness was placed and the knee was taken through a range of motion. Th ere was satisfactory patellofemoral tracking. All trials were carefully removed. The tibia was subluxed anteriorly and sized to a size 5. Proxima l tibia was prepared using a size 5 keel punch. All bony cut surfaces were copiously irrigated with sterile saline and dried. Final implants were cemented into place starting with the tibia followed b y the femur and last the patella. A 9-mm insert trial was placed and the knee was taken into full ex tension. Tourniquet was turned down at 49 minutes. Electrocautery was used to obtain meticulous hem ostasis. The knee was copiously irrigated with sterile saline. Once the cement had fully cured, the insert trial was removed. Any excess cement was removed from around the capsule and hardware. Dayna l insert chosen was a 9-mm posterior stabilized articular insert, size 5/6. This was locked into pos ition on the tibial tray. Stability of the insert was checked and rechecked and noted to be stable. The extensor mechanism was closed using interrupted #1 Vicryl. The rest of the incision was closed i n a layered fashion using 0 and 2-0 Vicryl. Skin was closed using running 3-0 nylon suture. Sterile Xeroform, 4x4's, and Webril were used to cover the incision. Ney wrap and cold pack were placed over this. The patient's anesthesia was reversed without difficulty and she was taken to the PACU in sta ble condition. Intended weightbearing will be weightbearing as tolerated. Intended DVT prophylaxis will be to restart her Xarelto tomorrow, postop day 1. [id number]/[facility] #: [id number]
[2018-01-07 05:58] LABS: Hematocrit 34 % (35-47); Mean Platelet Volume 8.9 um3 (7.4-10.4); Platelet Count 198 10^3/ul (150-450)
[2018-01-07 06:15] LABS: EGFR Non-African American 83.7 (>60)
--- NOTE | 2018-01-07 09:40 | PN ---
Progress Note - Progress Note Date of Service: 01/07/18 SOAP: Subjective: []Patient seen and examined at bedside. She is feeling well without any complaints today. Denies CP, SOB, dizziness, nausea. Objective: []General: Well appearing, NAD RLE: Right knee dressing CDI. Thigh is soft, DF/PF intact, DP2+, capillary refill less than two seconds, sensation intact distally. Calves supple and nontender without erythema, edema or palpable cords Assessment: []POD 1 s/p Right total knee arthroplasty Plan: []WBAT PT/OT Restart home dose of xarelto [address] Vicki Odonnell is covering for Dr Shelby, appreciate medical comanagment Continue IS use Vital Signs Temp 98.8 F 01/07/18 07:18 Pulse 80 01/07/18 07:18 Resp 16 01/07/18 09:42 BP 114/54 01/07/18 07:18 Pulse Ox 92 01/07/18 07:18 Intake & Output 01/06/18 01/07/18 01/07/18 18:59 06:59 18:59 Intake Total 1850 1937 Output Total 150 1025 Balance 1700 912 Weight 241 lb 9.6 oz Intake: IV Fluids 1850 980 LR 1850 980 IVPB 107 ABX - CLINDAMYCIN 107 Oral 850 Output: Wilburn 150 1025 Other: Estimated Void Medium # Bowel Movements 0 Estimated Blood Loss 150 Comment Laboratory Last Values Hgb 11.0 g/dl (12.0-16.0) L 01/07/18 05:17 Hct 34 % (35-47) L 01/07/18 05:17 Plt Count 198 10^3/ul (150-450) 01/07/18 05:17 MPV 8.9 um3 (7.4-10.4) 01/07/18 05:17 Sodium 135 mmol/L (135-145) 01/07/18 05:17 Potassium 4.5 mmol/L (3.5-5.0) 01/07/18 05:17 Chloride 104 mmol/L (101-111) 01/07/18 05:17 Carbon Dioxide 27 mmol/L (22-32) 01/07/18 05:17 Anion Gap 4 mmol/L (2-11) 01/07/18 05:17 BUN 28 mg/dL (6-24) H 01/07/18 05:17 Creatinine 0.70 mg/dL (0.51-0.95) 01/07/18 05:17 Est GFR ( Amer) 101.3 (>60) 01/07/18 05:17 Est GFR (Non-Af Amer) 83.7 (>60) 01/07/18 05:17 BUN/Creatinine Ratio 40.0 (8-20) H 01/07/18 05:17 Glucose 152 mg/dL (70-100) H 01/07/18 05:17 Calcium 8.7 mg/dL (8.6-10.3) 01/07/18 05:17 Magnesium 1.7 mg/dL (1.9-2.7) L 01/07/18 05:17
[2018-01-07] MEDS: Diltiazem CD CAP* 240 MG PO SCH (09:43)
[2018-01-07] MEDS: Magnesium Hydroxide LIQ* 30 ML UDC PO SCH ×2 (09:43→21:18)
[2018-01-07] MEDS: Omeprazole CAP* 20 MG PO SCH (09:44)
[2018-01-07] MEDS: Docusate CAP* 100 MG PO SCH ×2 (09:44→21:17)
[2018-01-07] MEDS: Rivaroxaban TAB(*) 20 MG TAB PO SCH (09:44)
[2018-01-07] MEDS: Montelukast Sodium TAB* 10 MG PO SCH (09:44)
[2018-01-07] MEDS: Vitamin THERAPEUTIC TAB PO SCH (09:44)
[2018-01-07] MEDS: Losartan TAB* 25 MG PO SCH (09:44)
[2018-01-07] MEDS ORDERED: Magnesium Sulfate 2 GM IV* 2 GM/50 ML BAG IVPB ONE (12:01)
[2018-01-08] MEDS: oxyCODONE/Acetamin 5/325 MG* TAB PO PRN ×3 (01:06→11:39)
[2018-01-08 06:15] LABS: Hematocrit 32 % (35-47); Hemoglobin 10.9 g/dl (12.0-16.0); Mean Corpuscular HGB Conc 34 g/dl (31-36); Mean Corpuscular Hemoglobin 28 pg (27-31); Mean Corpuscular Volume 83 fL (80-97); Mean Platelet Volume 8.7 um3 (7.4-10.4); Platelet Count 202 10^3/ul (150-450); Red Blood Count 3.89 10^6/ul (4.00-5.40); Red Cell Distribution Width 14 % (10.5-15)
[2018-01-08 06:34] LABS: EGFR Non-African American 89.6 (>60)
[2018-01-08] MEDS: Omeprazole CAP* 20 MG PO SCH (08:09)
[2018-01-08] MEDS: Vitamin THERAPEUTIC TAB PO SCH (08:09)
[2018-01-08] MEDS: Diltiazem CD CAP* 240 MG PO SCH (08:09)
[2018-01-08] MEDS: Magnesium Hydroxide LIQ* 30 ML UDC PO SCH (08:09)
[2018-01-08] MEDS: Docusate CAP* 100 MG PO SCH (08:09)
[2018-01-08] MEDS: Rivaroxaban TAB(*) 20 MG TAB PO SCH (08:09)
[2018-01-08] MEDS: Montelukast Sodium TAB* 10 MG PO SCH (08:10)
[2018-01-08] MEDS: Losartan TAB* 25 MG PO SCH (08:10)
[2018-01-08] MEDS: oxyCODONE TAB* 5 MG TAB PO PRN ×2 (08:10→13:55)
--- NOTE | 2018-01-08 08:37 | PN ---
Progress Note - Progress Note Date of Service: 01/08/18 SOAP: Subjective: []Patient seen and examined at bedside. She feels well and desires DC to home. Denies CP, SOB, dizziness, nausea, leg numbness. Objective: [] General: Well appearing, NAD RLE: Dressing changed, incision CDI without discharge or erythema. Thigh is soft. DF/PF intact. Sensation intact distally. DP2+. Calves supple and nontender without erythema, edema or palpable cords Assessment: []POD 2 s/p Right total knee arthroplasty Plan: []WBAT PT/OT Continue home dose of xarelto [address] Vicki Odonnell is covering for Dr Shelby, appreciate medical comanagement Potassium above 4, magnesium above 2 as cardiology recommends Continue IS use DC to home today Vital Signs Temp 97.2 F 01/08/18 07:38 Pulse 71 01/08/18 07:38 Resp 20 01/08/18 08:10 BP 136/56 01/08/18 07:38 Pulse Ox 97 01/08/18 07:38 Intake & Output 01/07/18 01/08/18 01/08/18 18:59 06:59 18:59 Intake Total 1625 600 480 Output Total 650 1100 Balance 975 -500 480 Intake: IV Fluids 725 ABX - CLINDAMYCIN 55 LR 615 mg 55 Oral 900 600 480 Output: Urine 650 1100 Other: Estimated Void Medium # Voids 1 Laboratory Last Values WBC 10.0 10^3/ul (3.5-10.8) 01/08/18 05:39 RBC 3.89 10^6/ul (4.00-5.40) L 01/08/18 05:39 Hgb 10.9 g/dl (12.0-16.0) L 01/08/18 05:39 Hct 32 % (35-47) L 01/08/18 05:39 MCV 83 fL (80-97) 01/08/18 05:39 MCH 28 pg (27-31) 01/08/18 05:39 MCHC 34 g/dl (31-36) 01/08/18 05:39 RDW 14 % (10.5-15) 01/08/18 05:39 Plt Count 202 10^3/ul (150-450) 01/08/18 05:39 MPV 8.7 um3 (7.4-10.4) 01/08/18 05:39 Sodium 138 mmol/L (135-145) 01/08/18 05:39 Potassium 4.3 mmol/L (3.5-5.0) 01/08/18 05:39 Chloride 103 mmol/L (101-111) 01/08/18 05:39 Carbon Dioxide 31 mmol/L (22-32) 01/08/18 05:39 Anion Gap 4 mmol/L (2-11) 01/08/18 05:39 BUN 29 mg/dL (6-24) H 01/08/18 05:39 Creatinine 0.66 mg/dL (0.51-0.95) 01/08/18 05:39 Est GFR ( Amer) 108.4 (>60) 01/08/18 05:39 Est GFR (Non-Af Amer) 89.6 (>60) 01/08/18 05:39 BUN/Creatinine Ratio 43.9 (8-20) H 01/08/18 05:39 Glucose 96 mg/dL (70-100) 01/08/18 05:39 Calcium 8.4 mg/dL (8.6-10.3) L 01/08/18 05:39 Magnesium 2.1 mg/dL (1.9-2.7) 01/08/18 05:39
[2018-01-08 08:39] LABS: ABS Basophils 0 10^3/ul (0-0.2); ABS Eosinophils 0.1 10^3/ul (0-0.6); ABS Lymphocytes 2.1 10^3/ul (1.0-4.8); ABS Monocytes 1.6 10^3/ul (0-0.8); ABS Neutrophils 6.2 10^3/ul (1.5-7.7); ABS Nucleated RBC 0 10^3/ul; Eosinophil % 0.9 % (0-6); Lymphocyte % 21.3 % (25-47); Nucleated Red Blood Cells % 0
[2018-01-08 13:04] VITALS: BP 114/49
--- NOTE | 2018-01-09 11:42 | DS ---
DISCHARGE SUMMARY: DATE OF ADMISSION: 01/06/18 DATE OF DISCHARGE: 01/08/18 PROVIDER: Seema Dubois MD* (DICTATED BY NORY GRIFFIN) PREOPERATIVE DIAGNOSIS: Osteoarthritis right knee. OPERATIVE PROCEDURE: Right total knee arthroplasty. HISTORY: The patient is a 67-year-old female with years of increasingly severe right knee pain. She failed conservative management and elected to undergo right total knee arthroplasty. HOSPITAL COURSE: The patient was admitted to [facility] on . She underwent right total knee arthroplasty without complication. Postop day 1, she was well appearing, no acute distress. Dorsiflexion, plantarflexion intact. Sensation intact distally. Postop day 2, dressing was changed. Incision clean, dry and intact. Dorsiflexion, plantarflexion intact. Sensation intact distally. DP 2+. PHYSICAL EXAMINATION: Vital Signs: Temperature 97.2, pulse 71, respiratory rate 20, blood pressure 136/56 and pulse ox 97%. Hemoglobin 10.2, hematocrit 32. Potassium 4.3, magnesium 2.1. The patient was deemed to be medically and orthopedically stable for discharge home. DISCHARGE MEDICATIONS: 1. Omeprazole 20 mg p.o. q.a.m. 2. Citalopram 10 mg p.o. q.a.m. 3. Singulair 10 mg p.o. q.a.m. 4. Albuterol 2 puffs inhaled 4 times a day p.r.n. 5. Magnesium oxide 500 mg p.o. q.a.m. 6. Losartan 50 mg p.o. q.a.m. 7. Mesalamine 0.375 g 4 tabs p.o. q.a.m. 8. Trazodone 50 mg p.o. bedtime p.r.n. 9. Remicade 100 mg IV per instructions. 10. FiberCon 1200 mg p.o. q.a.m. 11. Fluticasone 110 mcg inhale b.i.d. 12. Diltiazem 240 mg p.o. q.a.m. 13. Probiotic daily. 14. Xarelto 20 mg p.o. q.a.m. 15. PreserVision 1 soft gel q.a.m. 16. Multivitamin 1 tab p.o. q.a.m. 17. Hydrocortisone 25 mg b.i.d. p.r.n. per rectum. 18. Hydrocortisone 1 application topically p.r.n. 19. Calcium Plus D soft chews 3 times p.o. q.a.m. 20. [place]-3 1 tab p.o. q.a.m. 21. Acetaminophen 650 mg p.o. q.8 hours p.r.n., max daily dose 4000 mg from all sources. 22. Docusate 100 mg p.o. b.i.d. p.r.n. 23. Oxycodone 10 mg p.o. q.4 hours p.r.n. 24. Percocet 5/325 mg 1 to 2 tablets every 4 to 6 hours as needed for pain, max daily dose 10. DISCHARGE PLAN: The patient will be weightbearing as tolerated. She may shower on her third postoperative day. She will continue physical therapy and occupational therapy exercises. She will be on Xarelto 20 mg p.o. every day. She will follow up with Dr. Dubois in 10 to 14 days. DISPOSITION: She will be discharged to home. NORY GRIFFIN [id number]/[facility] #: [id number] MTDD
== END 2018-01-08 14:12 | disposition home health service (06) | DRG 470 ==
LOC: AA 09:26 → SSU 15:02
PROVIDERS: ADMIT Orthopaedic Surgery Adult Reconstructive Orthopaedic Surgery; ATTEND Orthopaedic Surgery Adult Reconstructive Orthopaedic Surgery
PROC: 0SRC0J9 Replacement of Right Knee Joint with Synthetic Substitute, Cemented, Open Approach (ICD-10-PCS; principal; 2018-01-06 11:00)
DX: M17.11 Unilateral primary osteoarthritis, right knee (principal); K51.30 Ulcerative (chronic) rectosigmoiditis without complications; I48.91 Unspecified atrial fibrillation; K21.9 Gastro-esophageal reflux disease without esophagitis; I10 Essential (primary) hypertension; M25.461 Effusion, right knee; E66.9 Obesity, unspecified; I77.819 Aortic ectasia, unspecified site; I08.0 Rheumatic disorders of both mitral and aortic valves; M18.12 Unilateral primary osteoarthritis of first carpometacarpal joint, left hand; M18.11 Unilateral primary osteoarthritis of first carpometacarpal joint, right hand; M06.4 Inflammatory polyarthropathy; E83.42 Hypomagnesemia; M25.761 Osteophyte, right knee; J45.909 Unspecified asthma, uncomplicated; Z85.820 Personal history of malignant melanoma of skin; Z98.51 Tubal ligation status; Z88.0 Allergy status to penicillin; Z91.041 Radiographic dye allergy status; Z82.49 Family history of ischemic heart disease and other diseases of the circulatory system; Z82.3 Family history of stroke; Z79.01 Long term (current) use of anticoagulants; Z80.9 Family history of malignant neoplasm, unspecified; Z72.89 Other problems related to lifestyle; Z98.42 Cataract extraction status, left eye; Z98.41 Cataract extraction status, right eye; Z82.61 Family history of arthritis; Z81.1 Family history of alcohol abuse and dependence; Z87.891 Personal history of nicotine dependence; Z68.38 Body mass index [BMI] 38.0-38.9, adult
CPT/HCPCS: 36415; 80048; 83735; 85014; 85018; 85025; 85049; A9270-GY; G8978-GP-CJ; G8979-GP-CI; G8987-GO-CJ; G8988-GO-CI; J1100; J1170; J1885; J2001; J2250; J2405; J2704; J2765; J2795; J3010; J3475

== ENCOUNTER 2021-11-14 21:07 | Observation (INO) ==
[2021-11-14] MEDS ORDERED: Lactated Ringers 1000 ml BAG 1,000 ML IV ONE (21:42)
[2021-11-14 22:40] LABS: ABS Lymphocytes 0.5 10^3/ul (1.0-4.8); ABS Neutrophils 11.4 10^3/ul (1.5-7.7); Hematocrit 40 % (35-47); Hemoglobin 12.6 g/dL (12.0-16.0); Lymphocyte % 4.1 %; Mean Corpuscular HGB Conc 32 g/dL (31-36); Mean Corpuscular Hemoglobin 25 pg (27-31); Mean Corpuscular Volume 79 fL (80-97); Mean Platelet Volume 8.3 fL (7.4-10.4); Platelet Count 153 10^3/uL (150-450); Red Blood Count 5.03 10^6 /uL (3.70-4.87); Red Cell Distribution Width 18 % (10-15)
[2021-11-14 23:41] LABS: Albumin 3.8 g/dL (3.2-5.2); Albumin/Globulin Ratio 1.2 (1-3); C Reactive Protein 30.48 mg/L (<8.01); Calcium 8.9 mg/dL (8.6-10.3); Globulin 3.3 g/dL (2-4); Potassium 3.6 mmol/L (3.5-5.0); Total Bilirubin 0.8 mg/dL (0.2-1.0); Total Protein 7.1 g/dL (6.4-8.9); eGFR CKD-EPI 68.8 (>60)
[2021-11-15] MEDS ORDERED: Cefepime 1 GM in Dextrose 1 GM/50 ML BAG IV ONE (00:28)
[2021-11-15] MEDS ORDERED: Lactated Ringers 1000 ml BAG 1,000 ML IV ONE (01:21)
[2021-11-15 01:43] LABS: Urine Appearance Clear; Urine Bilirubin Negative (Negative); Urine Blood Negative (Negative); Urine Color Amber; Urine Glucose Negative (Negative); Urine Ketones Negative (Negative); Urine Protein 1+ (30 mg/dL) (Negative); Urine Specific Gravity 1.027 (1.002-1.030); Urine Urobilinogen 0.2 (Negative) (Negative); Urine pH 5.5 (5.0-9.0)
[2021-11-15 01:44] LABS: Urine Nitrite Negative (Negative)
[2021-11-15 01:48] LABS: Urine Bacteria 1+ (Absent); Urine Red Blood Cell Trace(0-2/hpf) (Absent); Urine Squamous Epithelial Cell Present (Absent); Urine White Blood Cell 2+(11-20/hpf) (Absent)
[2021-11-15] MEDS ORDERED: Mometasone 220 MCG MDI INH PRN (04:41)
[2021-11-15] MEDS ORDERED: Potassium Chlor 10 meq TAB PO ONE (05:05)
[2021-11-15 05:28] LABS: Magnesium 1.5 mg/dL (1.9-2.7)
[2021-11-15] MEDS ORDERED: Magnesium Sulfate IV 3 GM in NS 0.9% 100 ml BAG 100 ML IVPB ONE (07:32)
[2021-11-15] MEDS: Albuterol HFA INHALER 8 gm MDI INH SCH ×4 (07:41→20:03)
[2021-11-15] MEDS ORDERED: Magnesium Sulfate 2 gm BAG 2 GM/50 ML BAG IVPB ONE ×2 (11:00→17:00)
[2021-11-15] MEDS: cefTRIAXone 1 gm/50 mL D5W 1 GM/50 ML BAG IV SCH (14:27)
[2021-11-16 06:36] LABS: Hematocrit 39 % (35-47); Hemoglobin 12.8 g/dL (12.0-16.0); Mean Corpuscular HGB Conc 33 g/dL (31-36); Mean Corpuscular Hemoglobin 26 pg (27-31); Mean Corpuscular Volume 80 fL (80-97); Mean Platelet Volume 8.6 fL (7.4-10.4); Platelet Count 146 10^3/uL (150-450); Red Blood Count 4.94 10^6 /uL (3.70-4.87); Red Cell Distribution Width 18 % (10-15); White Blood Count 4.8 10^3/uL (3.5-10.8)
[2021-11-16 06:55] LABS: C Reactive Protein 77.17 mg/L (<8.01); Calcium 8.6 mg/dL (8.6-10.3); Potassium 3.9 mmol/L (3.5-5.0); eGFR CKD-EPI 82.9 (>60)
[2021-11-16] MEDS: Albuterol HFA INHALER 8 gm MDI INH SCH ×4 (08:51→21:26)
[2021-11-16 09:30] LABS: Anisocytosis 1+
[2021-11-16 09:31] LABS: ABS Eosinophils 0.2 10^3/ul (0-0.6); ABS Lymphocytes 1.3 10^3/ul (1.0-4.8); ABS Monocytes 0.9 10^3/ul (0-0.8); ABS Neutrophils 2.4 10^3/ul (1.5-7.7); Eosinophil % 3.9 %; Lymphocyte % 26.6 %
[2021-11-16] MEDS: PTO: Mesalamine 0.375 GM CAP (NF) PO SCH ×2 (10:28→14:01)
[2021-11-16] MEDS: cefTRIAXone 1 gm/50 mL D5W 1 GM/50 ML BAG IV SCH (12:51)
[2021-11-17 06:45] LABS: ABS Eosinophils 0.2 10^3/ul (0-0.6); ABS Lymphocytes 1.4 10^3/ul (1.0-4.8); ABS Monocytes 0.7 10^3/ul (0-0.8); ABS Neutrophils 1.9 10^3/ul (1.5-7.7); Eosinophil % 5.5 %; Hematocrit 35 % (35-47); Hemoglobin 11.7 g/dL (12.0-16.0); Lymphocyte % 33.5 %; Mean Corpuscular HGB Conc 33 g/dL (31-36); Mean Corpuscular Hemoglobin 26 pg (27-31); Mean Corpuscular Volume 80 fL (80-97); Mean Platelet Volume 8.8 fL (7.4-10.4); Nucleated Red Blood Cells % 0.1; Platelet Count 152 10^3/uL (150-450); Red Blood Count 4.45 10^6 /uL (3.70-4.87); Red Cell Distribution Width 18 % (10-15); White Blood Count 4.3 10^3/uL (3.5-10.8)
[2021-11-17 07:28] LABS: Calcium 8.8 mg/dL (8.6-10.3); Magnesium 1.7 mg/dL (1.9-2.7); Potassium 4.5 mmol/L (3.5-5.0); eGFR CKD-EPI 85.6 (>60)
[2021-11-17] MEDS: Albuterol HFA INHALER 8 gm MDI INH SCH ×3 (07:31→15:12)
[2021-11-17] MEDS ORDERED: Magnesium Sulfate IV 3 GM in NS 0.9% 100 ml BAG 100 ML IVPB ONE (08:06)
[2021-11-17] MEDS: PTO: Mesalamine 0.375 GM CAP (NF) PO SCH (08:51)
[2021-11-17] MEDS: cefTRIAXone 1 gm/50 mL D5W 1 GM/50 ML BAG IV SCH (11:48)
[2021-11-17 12:42] VITALS: BP 127/55
== END 2021-11-17 16:00 | disposition home or self-care (01) ==
LOC: EDHOLD 21:07 → ED 21:07 → SUATTDRO 11-15 01:17 → MEDTELE 11-15 14:35
PROVIDERS: ADMIT Internal Medicine; ATTEND Internal Medicine

== ENCOUNTER 2023-09-11 20:26 | Inpatient (IN) ==
[2023-09-11 21:33] LABS: ABS Lymphocytes 0.4 10^3/uL (1.0-4.8); ABS Monocytes 0.8 10^3/uL (0.0-0.9); ABS Neutrophils 13.1 10^3/uL (1.5-7.6); Hematocrit 45.6 % (35-45); Hemoglobin 15.7 g/dL (11.5-14.3); Lymphocyte % 3.1 %; Mean Corpuscular Hgb Conc 34.4 g/dL (31-36); Mean Corpuscular Volume 90.1 fL (80-97); Mean Platelet Volume 8.5 fL (7.5-11.2); Platelet Count 125 10^3/uL (150-450); Red Blood Count 5.06 10^6/uL (3.63-4.92); Red Cell Distribution Width 14.4 % (12-17); White Blood Count 14.4 10^3/uL (3.8-11.8)
[2023-09-11 21:37] LABS: Urine Appearance Clear; Urine Bilirubin Negative (Negative); Urine Blood Negative (Negative); Urine Color Light-Yellow; Urine Glucose Negative (Negative); Urine Ketones Negative (Negative); Urine Nitrite Negative (Negative); Urine Protein Negative (Negative); Urine Specific Gravity 1.016 (1.002-1.030); Urine Urobilinogen Negative (Negative); Urine pH 7.5 (5.0-8.0)
[2023-09-11 21:40] LABS: Activated Partial Thrombo Time 30.8 seconds (26.0-38.0); INR 1.09 (0.83-1.13)
[2023-09-11 21:58] LABS: Albumin 4.2 g/dL (3.2-5.2); Albumin/Globulin Ratio 1.3 (1-3); C Reactive Protein 8.14 mg/L (<8.01); Calcium 8.8 mg/dL (8.6-10.3); Creatinine, Serum 0.73 mg/dL (0.51-0.95); Globulin 3.3 g/dL (2-4); Potassium 3.7 mmol/L (3.5-5.0); Total Bilirubin 1.1 mg/dL (0.2-1.0); Total Protein 7.5 g/dL (6.4-8.9); eGFR CKD-EPI 87.3 (>60)
[2023-09-11] MEDS: Ondansetron 4 mg VIAL 2 MG/ML 2 ml VIAL IV ONE (22:37)
[2023-09-11] MEDS: Lactated Ringers 1000 ml BAG 1,000 ML IV ONE (22:39)
[2023-09-11] MEDS: Cefepime 1 GM in Dextrose 1 GM/50 ML BAG IV ONE (22:41)
[2023-09-11 23:00] LABS: High Sensitivity Troponin 1 Hr 9 pg/mL (<15)
[2023-09-12] MEDS: Vancomycin 1,000 MG in NS 0.9% 250 ml 250 ML IVPB ONE (00:18)
[2023-09-12] MEDS: DOXYcycline 100 MG in NS 0.9% 250 ml 250 ML IVPB ONE (01:46)
[2023-09-12] MEDS ORDERED: Mometasone 220 MCG MDI INH PRN (03:56)
[2023-09-12] MEDS: Enoxaparin 40 MG/0.4 ML SYR SUBCUT SCH (05:48)
[2023-09-12 07:16] LABS: ABS Lymphocytes 0.9 10^3/uL (1.0-4.8); ABS Monocytes 1.3 10^3/uL (0.0-0.9); ABS Neutrophils 14.1 10^3/uL (1.5-7.6); Hemoglobin 13.5 g/dL (11.5-14.3); Lymphocyte % 5.6 %; Mean Corpuscular Hemoglobin 31.1 pg (27-33); Mean Corpuscular Hgb Conc 34.7 g/dL (31-36); Mean Corpuscular Volume 89.6 fL (80-97); Mean Platelet Volume 8.7 fL (7.5-11.2); Platelet Count 106 10^3/uL (150-450); Red Blood Count 4.35 10^6/uL (3.63-4.92); White Blood Count 16.4 10^3/uL (3.8-11.8)
[2023-09-12] MEDS: cefTRIAXone 1 gm/50 mL D5W 1 GM/50 ML BAG IV SCH (07:31)
[2023-09-12 07:59] LABS: Calcium 7.8 mg/dL (8.6-10.3); Creatinine, Serum 0.67 mg/dL (0.51-0.95); Magnesium 1.5 mg/dL (1.9-2.7); Potassium 3.4 mmol/L (3.5-5.0); eGFR CKD-EPI 92.8 (>60)
[2023-09-12] MEDS: Albuterol HFA INHALER 8 gm MDI INH SCH ×2 (08:04→19:54)
[2023-09-12] MEDS: DOXYcycline 100 MG in NS 0.9% 250 ml 250 ML IVPB SCH (08:15)
[2023-09-12] MEDS: BIFIDOBACTERIUM INFANTIS 4 MG PO SCH (08:24)
[2023-09-12] MEDS ORDERED: Albuterol HFA INHALER 8 gm MDI INH PRN (08:49)
[2023-09-12] MEDS: MESALAMINE 0.375 GM PO SCH (09:29)
[2023-09-12] MEDS: Magnesium Sulfate 2 gm BAG 2 GM/50 ML BAG IVPB ONE (10:52)
[2023-09-12] MEDS: KCL 20 MEQ/100 ML IVPREMIX 20 MEQ/100 ML BAG IV SCH (10:52)
[2023-09-12] MEDS: Lactated Ringers 1000 ml BAG 1,000 ML IV SCH (12:14)
[2023-09-12 12:21] LABS: Folate 8.92 ng/mL (5.90-24.80)
[2023-09-12 13:05] LABS: RBC Parasite Smear No Parasites Seen (No Parasite)
[2023-09-12] MEDS: cefTRIAXone 1 gm/50 mL D5W 1 GM/50 ML BAG IV ONE (16:24)
[2023-09-13 05:18] LABS: Hematocrit 39.6 % (35-45); Hemoglobin 13.7 g/dL (11.5-14.3); Mean Corpuscular Hemoglobin 31.2 pg (27-33); Mean Corpuscular Hgb Conc 34.5 g/dL (31-36); Mean Corpuscular Volume 90.2 fL (80-97); Mean Platelet Volume 8.7 fL (7.5-11.2); Platelet Count 110 10^3/uL (150-450); Red Blood Count 4.39 10^6/uL (3.63-4.92); Red Cell Distribution Width 14.7 % (12-17)
[2023-09-13 05:54] LABS: Calcium 7.9 mg/dL (8.6-10.3); Creatinine, Serum 0.58 mg/dL (0.51-0.95); Magnesium 1.9 mg/dL (1.9-2.7); Potassium 3.7 mmol/L (3.5-5.0); eGFR CKD-EPI 96.1 (>60)
[2023-09-13] MEDS: PTO: Mesalamine 0.375 GM CAP (NF) PO SCH (09:51)
[2023-09-13] MEDS: Lactated Ringers 1000 ml BAG 1,000 ML IV SCH (14:05)
[2023-09-13] MEDS: cefTRIAXone 2 gm/50 mL D5W 2 GM/50 ML BAG IV SCH (15:10)
[2023-09-14 07:59] LABS: Hematocrit 40.6 % (35-45); Mean Corpuscular Hemoglobin 30.9 pg (27-33); Mean Corpuscular Hgb Conc 34.6 g/dL (31-36); Mean Corpuscular Volume 89.2 fL (80-97); Mean Platelet Volume 8.7 fL (7.5-11.2); Platelet Count 130 10^3/uL (150-450); Red Blood Count 4.55 10^6/uL (3.63-4.92); Red Cell Distribution Width 14.5 % (12-17); White Blood Count 5.1 10^3/uL (3.8-11.8)
[2023-09-14 08:10] LABS: Calcium 8.2 mg/dL (8.6-10.3); Creatinine, Serum 0.52 mg/dL (0.51-0.95); Magnesium 1.6 mg/dL (1.9-2.7); Potassium 3.8 mmol/L (3.5-5.0); eGFR CKD-EPI 98.7 (>60)
[2023-09-14] MEDS: Magnesium Sulfate 2 gm BAG 2 GM/50 ML BAG IVPB ONE (09:56)
[2023-09-14] MEDS: Lidocaine PATCH 5% PATCH TRANSDERM SCH (11:13)
[2023-09-15 05:58] LABS: Calcium 8.6 mg/dL (8.6-10.3); Creatinine, Serum 0.59 mg/dL (0.51-0.95); Magnesium 1.7 mg/dL (1.9-2.7); Potassium 4.1 mmol/L (3.5-5.0); eGFR CKD-EPI 95.7 (>60)
[2023-09-15] MEDS: Magnesium Sulfate 2 gm BAG 2 GM/50 ML BAG IVPB ONE (09:37)
[2023-09-15] MEDS: Sulfur Hexaflouride MICROSPHR 25 MG VIAL IV ONE (15:46)
[2023-09-16 06:28] LABS: Calcium 8.8 mg/dL (8.6-10.3); Creatinine, Serum 0.52 mg/dL (0.51-0.95); eGFR CKD-EPI 98.7 (>60)
[2023-09-16 07:56] LABS: Magnesium 1.8 mg/dL (1.9-2.7)
[2023-09-16] MEDS ORDERED: Iohexol 300 (CONTRAST) 10 ML SDV IV ONE (12:00)
[2023-09-16] MEDS: Hydrocortisone INJ 250 MG VIAL IV ONE (12:36)
[2023-09-16 14:36] LABS: Anaplasma phagocytophilum Negative (Negative); B. miyamotoi PCR, B Negative (Negative); Babesia divergens/MO-1 Negative (Negative); Babesia ducani Negative (Negative); Ehrlichia chaffeensis Negative (Negative); Ehrlichia ewingii/canis Negative (Negative); Ehrlichia muris eauclairensis Negative (Negative)
[2023-09-16 15:34] LABS: Body Fluid Appearance Cloudy; Body Fluid Color Yellow; Body Fluid Mono 72 %; Body Fluid Source Synovial Fluid; Body Fluid Total Cells Counted 200
[2023-09-16 15:35] LABS: Body Fluid Total Nucleated 241 /mcL
[2023-09-17 05:44] LABS: Calcium 9.1 mg/dL (8.6-10.3); Creatinine, Serum 0.6 mg/dL (0.51-0.95); Magnesium 1.7 mg/dL (1.9-2.7); Potassium 3.8 mmol/L (3.5-5.0); eGFR CKD-EPI 95.3 (>60)
[2023-09-17] MEDS: Magnesium Sulfate 2 gm BAG 2 GM/50 ML BAG IVPB ONE (08:31)
[2023-09-17 10:13] VITALS: BP 133/65
[2023-09-20 17:12] LABS: B. burgdorferi PCR Negative (Negative); B. garinii/B. afzellii PCR Negative (Negative); Lyme Disease Source R KNEE SYNOVIAL
== END 2023-09-17 13:55 | disposition home or self-care (01) | DRG 871 ==
LOC: EDHOLD 20:26 → ED 20:26 → SUATTDRO 09-12 01:12 → MEDTELE 09-12 02:55
PROVIDERS: ADMIT Internal Medicine; ATTEND Internal Medicine